=== PATIENT | male | born 1950 | race Caucasian/White ===

== ENCOUNTER → 2017-10-13 08:53 | Outpatient (CLI) | payer MEDICARE, OTHER, SELFPAY ==
[2017-10-13 10:40] LABS: ALB/GLOB Ratio 1.2 RATIO (0.9-2.4); AST(SGOT) 23 U/L (15-37); Alanine Aminotransfer ALT/SGPT 37 U/L (16-61); Alkaline Phosphatase 99 U/L (45-117); Anion Gap 8 (5-15); BUN 14 mg/dL (7-18); BUN/Creat Ratio 12.6 RATIO (10-20); Calcium,Total 8.9 mg/dL (8.5-10.1); Chloride 105 mmol/L (98-107); Cholesterol 181 mg/dL (200); Creatinine, Serum 1.11 mg/dL (0.70-1.30); EST Glomerular Filtration Rate 71 mL/min (>60); Est Glom Filt Rate - Afr Amer 85 mL/min (>60); Globulin 3.4 g/dL (2.2-4.2); Glucose 109 mg/dL (74-106); High Density Lipoprotein 47 mg/dL; PSA,Total- Diagnostic 6.41 ng/mL (0.0-4.0); Potassium 3.9 mmol/L (3.5-5.1); Protein, Total 7.4 g/dL (6.4-8.2); Sodium Level 140 mmol/L (136-145); Triglycerides 175 mg/dL; Very Low Density Lipoprotein 35 mg/dL (5-40)
[2017-10-13 10:47] LABS: Hemoglobin A1c 6.3 % (4.2-6.3)
[2017-10-13 10:57] LABS: Microalbumin:Creatinine Ratio 5.6 mg/g CRE (<30 mg/g CRE)
== END ==
PROVIDERS: Family Provider Family Medicine; PCP Family Medicine; Visit Provider Family Medicine
DX: E88.81 Metabolic syndrome and other insulin resistance (principal); R97.20 Elevated prostate specific antigen [PSA]
CPT/HCPCS: 36415; 80053; 80061; 82043; 82570; 83036; 84153

== ENCOUNTER → 2018-04-29 09:15 | Outpatient (CLI) | payer MEDICARE, OTHER, SELFPAY ==
[2018-04-29 10:47] LABS: Vitamin D,25 Hydroxy 43.5 ng/mL (29.95-100.01)
[2018-04-29 10:51] LABS: ALB/GLOB Ratio 1.2 RATIO (0.9-2.4); AST(SGOT) 32 U/L (15-37); Alanine Aminotransfer ALT/SGPT 45 U/L (16-61); Alkaline Phosphatase 96 U/L (45-117); Anion Gap 9 (5-15); BUN 18 mg/dL (7-18); BUN/Creat Ratio 15.8 RATIO (10-20); Chloride 102 mmol/L (98-107); Cholesterol 188 mg/dL (200); Creatinine, Serum 1.14 mg/dL (0.70-1.30); EST Glomerular Filtration Rate 68 mL/min (>60); Est Glom Filt Rate - Afr Amer 83 mL/min (>60); Globulin 3.4 g/dL (2.2-4.2); Glucose 101 mg/dL (74-106); High Density Lipoprotein 51 mg/dL; PSA,Total- Diagnostic 4.47 ng/mL (0.0-4.0); Protein, Total 7.4 g/dL (6.4-8.2); Sodium Level 139 mmol/L (136-145); Thyroid Stim Hormone (TSH) 0.77 uIU/mL (0.358-3.74); Triglycerides 146 mg/dL; Very Low Density Lipoprotein 29 mg/dL (5-40)
[2018-04-29 10:56] LABS: Microalbumin,Random Urine < 5.0 mg/L (NO RANGE EST.)
== END ==
PROVIDERS: Family Provider Family Medicine; PCP Family Medicine; Referring Provider Family Medicine; Visit Provider Family Medicine
DX: E78.00 Pure hypercholesterolemia, unspecified (principal); E55.9 Vitamin D deficiency, unspecified; L40.9 Psoriasis, unspecified; R97.20 Elevated prostate specific antigen [PSA]; I10 Essential (primary) hypertension
CPT/HCPCS: 36415; 80053; 80061; 82043; 82306; 82570; 84153; 84443

== ENCOUNTER → 2018-09-15 | Outpatient (CLI) | payer MEDICARE, OTHER, SELFPAY ==
[2018-09-15 10:39] LABS: Anion Gap 7 (5-15); BUN 14 mg/dL (7-18); BUN/Creat Ratio 14.2 RATIO (10-20); Calcium,Total 9.3 mg/dL (8.5-10.1); Chloride 105 mmol/L (98-107); Creatinine, Serum 0.99 mg/dL (0.70-1.30); EST Glomerular Filtration Rate 80 mL/min (>60); Est Glom Filt Rate - Afr Amer 97 mL/min (>60); Glucose 111 mg/dL (74-106); Potassium 4.2 mmol/L (3.5-5.1); Sodium Level 139 mmol/L (136-145)
== END | disposition home or self-care (01) ==
LOC: MFPLAB 09:26
PROVIDERS: Family Provider Family Medicine; PCP Family Medicine; Referring Provider Family Medicine; Visit Provider Family Medicine
DX: I10 Essential (primary) hypertension (principal)
CPT/HCPCS: 36415; 80048

== ENCOUNTER → 2019-04-27 09:04 | Outpatient (CLI) | payer MEDICARE, OTHER, SELFPAY ==
[2019-04-27 11:09] LABS: Anion Gap 10 (5-15); BUN 22 mg/dL (7-18); Calcium,Total 9.5 mg/dL (8.5-10.1); Chloride 107 mmol/L (98-107); Cholesterol 192 mg/dL (200); Creatinine, Serum 1.16 mg/dL (0.70-1.30); EST Glomerular Filtration Rate 67 mL/min (>60); Est Glom Filt Rate - Afr Amer 81 mL/min (>60); Glucose 107 mg/dL (74-106); High Density Lipoprotein 51 mg/dL; PSA,Total - Annual Screen 4.66 ng/mL (0.00-4.00); Sodium Level 141 mmol/L (136-145); Triglycerides 133 mg/dL; Very Low Density Lipoprotein 27 mg/dL (5-40)
== END ==
LOC: LAB 09:10 → MTLAB 09:12
PROVIDERS: Family Provider Family Medicine; PCP Family Medicine; Referring Provider Family Medicine; Visit Provider Family Medicine
DX: E78.00 Pure hypercholesterolemia, unspecified (principal); R97.20 Elevated prostate specific antigen [PSA]; I10 Essential (primary) hypertension; Z12.5 Encounter for screening for malignant neoplasm of prostate
CPT/HCPCS: 36415; 80048; 80061; 84153; G0103

== ENCOUNTER 2019-07-10 21:48 | Emergency (ER) | payer MEDICARE, OTHER, SELFPAY ==
[2019-07-10 21:49] VITALS: BP 128/69; PULSE 75; RESP 18; TEMP 36.6; O2SAT 93; BMI 32.2
--- NOTE | 2019-07-10 22:04 | CT_ITS ---
HISTORY: HIT HEAD ON WALL, NO LOC, DAILY BABY ASPIRIN ADDITIONAL HISTORY: None provided. COMPARISON: None TECHNIQUE: Axial, coronal and sagittal CT images were obtained of the brain without intravenous contrast. Number of images including paperwork: 257. A radiation dose optimization technique was used for this scan. FINDINGS: BRAIN: No acute hemorrhage or mass. No definite acute infarct; MRI more sensitive. VENTRICULAR SYSTEM: No hydrocephalus. PARANASAL SINUSES AND MASTOIDS: No air-fluid level in the imaged extent. ORBITS: Unremarkable imaged extent. SKELETON AND SOFT TISSUES: Calvarium intact. Left frontal scalp hematoma. ASPECTS score: Not applicable. CT/Brain/Head without Contrast IMPRESSION: No acute intracranial abnormality. Individualized dose optimization techniques were used for this CT. at 2255 Reported and signed by: Angélica Vila MD Electronically Signed: Angélica Vila MD at 22:55 EST Tel , Service support ,
--- NOTE | 2019-07-10 22:04 | EKG12_ITS ---
Test Reason : FALL Blood Pressure : / mmHG Vent. Rate : 068 BPM Atrial Rate : 068 BPM P-R Int : 146 ms QRS Dur : 088 ms QT Int : 408 ms P-R-T Axes : 048 061 031 degrees QTc Int : 433 ms Normal sinus rhythm Normal ECG Confirmed by LAURA GARCÍA, SANDEEP ([id number]), managing editor MAGDIEL HULL ([id number]) on 07/12/2019 9:17:01 AM Referred By: RU Confirmed By:SANDEEP SANCHEZ MD
--- NOTE | 2019-07-10 22:09 | ED.RN ---
NO OLD EKGS IN MUSE
[2019-07-10] MEDS: 0.9% Normal Saline 1,000 ML 150 ML IV (22:25)
[2019-07-10 22:56] LABS: Absolute Lymphocyte Count 1.96 X10^3/uL (0.83-4.51); Absolute Neutrophil Count 4.4 X10^3/uL (2.0-7.7); Basophil# 0.09 X10^3/uL; Basophil% 1.2 % (0-1); Eosinophil# 0.24 X10^3/uL; Eosinophils% 3.1 % (0-5); Hematocrit 48.6 % (40-54); Hemoglobin 16.5 g/dL (13.0-16.5); Lymphocyte # 1.96 X10^3/ul (4.0); Lymphocyte % 25.7 % (19-41); Mean Corpuscular Hgb 29.2 pg (27.0-32.0); Mean Corpuscular Volume 85.9 fL (80-94); Monocyte# 0.95 X10^3/uL; Monocyte% 12.5 % (0-10); NRBC Flagged by Analyzer 0 % (0-5); Neutrophil # 4.36 X10^3/uL (2.7-7.7); Neutrophil % 57.2 % (47-70); Platelet Count 232 K/mm3 (150-450); RBC Distribution Width CV 12.3 % (11.6-14.6); RBC Distribution Width SD 38.2 fl (35.1-43.9); Red Blood Count 5.66 M/mm3 (4.6-6.2); White Blood Count 7.6 K/mm3 (4.4-11.0)
[2019-07-10 23:14] LABS: Anion Gap 8 (5-15); BUN 14 mg/dL (7-18); BUN/Creat Ratio 9.7 RATIO (10-20); Calcium,Total 9.4 mg/dL (8.5-10.1); Chloride 105 mmol/L (98-107); Creatinine, Serum 1.44 mg/dL (0.70-1.30); EST Glomerular Filtration Rate 52 mL/min (>60); Est Glom Filt Rate - Afr Amer 63 mL/min (>60); Estimated Creatinine Clearance 49.78 ml/min; Glucose 127 mg/dL (74-106); Potassium 3.5 mmol/L (3.5-5.1); Sodium Level 140 mmol/L (136-145)
[2019-07-10 23:30] VITALS: BP 116/70; BP 120/74; BP 122/70; PULSE 78; PULSE 85; PULSE 87
[2019-07-10 23:48] VITALS: BP 122/70; PULSE 78; RESP 18; O2SAT 94
--- NOTE | 2019-07-10 23:54 | ED.VISSUMM ---
- ER Visit Summary Date of Service: 07/10/19 Chief Complaint: [Dizziness and near syncope] History of Present Illness: The patient is a 69 M [presents the emergency department after falling and hitting his head on a metal register. Patient states that he had been sleeping when he got up to get a drink of water. Patient was in a recliner and was somewhat lightheaded and dizzy while in the recliner and when he stood up and started to walk he fell over striking his head. does not believe he lost consciousness as he was responding feeling when he got to him. Patient admits to 1 [facility] this evening. He denies any chest pain or shortness of breath. He denied any palpitations. Patient denies any neck pain. Patient did have a change in his blood pressure medicine recently but he took his blood pressure medications this morning.] Physical Examination: [HEENT-PERRLA, EOMI. Cranial nerves II through XII grossly intact. TMs clear. Mucous membranes moist. No adenopathy. Patient has a superficial abrasion to the frontal scalp. No C-spine pain from palpation. Cardiovascular-regular rate and rhythm without murmur or ectopy Lungs-clear to auscultation, chest wall stable without crepitus or subcu emphysema Abdomen-normoactive bowel sounds, soft, nontender, no rebound or rigidity, no peritoneal signs. Extremities-intact ?4, normal range of motion, normal pulses, atraumatic] Test Results: [EKG obtained on arrival showed a sinus rhythm with a ventricular rate of 60 bpm with no acute ST segment changes. CBC with differential with a 7.6, hemoglobin 16.5, hematocrit 0.9, platelets 233. Chemistries unremarkable. BUN was 14 and creatinine 1.44. Troponin is less than 0.015. CT scan of the brain without contrast showed nothing acute. Orthostatic vital signs were negative.] Alcohol level was less than 5 mg/dL. Emergency Department Course and Treatment: [Patient had an IV line established on arrival. Patient was placed on a conveyor monitor. Patient was given normal saline. Patient ambulated in the department without difficulty and he is completely asymptomatic at this time.] Treatment Plan: [At this point I suspect patient likely had a vasovagal episode. Patient advised to follow-up with primary care physician within the next 3 to 5 days. Patient advised to drink lots of fluids and rest. He is to return if palpitations, tachycardia, chest pain, repeat syncopal episodes, or condition should worsen anyway.] Disposition: [Discharged home in stable condition] Impression: [Vasovagal near syncope] This note was generated with [employer] dictation software. It may contain incorrect words, spelling, and punctuation that were not noted in review of the chart prior to signing ED Disposition - Plan for ED Patient: Referrals: Fabricio Tomas MD [Primary Care Provider] -
--- NOTE | 2019-07-10 23:57 | ED.DEP ---
ED Disposition - Plan for ED Patient: Instructions: NEAR SYNCOPE, Vasovagal Referrals: Fabricio Tomas MD [Primary Care Provider] - 3-5 Days
[2019-07-11 00:18] VITALS: BP 131/67; PULSE 75; RESP 18; TEMP 36.8; O2SAT 96
== END 2019-07-11 00:19 | disposition home or self-care (01) ==
LOC: ED 22:19
PROVIDERS: Emergency Provider Emergency Medicine; PCP Family Medicine
DX: R55 Syncope and collapse (principal); I10 Essential (primary) hypertension; Z79.82 Long term (current) use of aspirin; Z79.899 Other long term (current) drug therapy
CPT/HCPCS: 70450; 80048; 80320; 84484; 85025; 93005; 96360; 96361; 99285; J7030; A4216; G0480

== ENCOUNTER → 2019-08-01 | Outpatient (CLI) | payer MEDICARE, OTHER, SELFPAY ==
[2019-07-10 21:49] VITALS: BMI 32.2
[2019-08-01 12:41] LABS: Anion Gap 5 (5-15); BUN 14 mg/dL (7-18); Calcium,Total 9.6 mg/dL (8.5-10.1); Chloride 103 mmol/L (98-107); Creatinine, Serum 1.17 mg/dL (0.70-1.30); EST Glomerular Filtration Rate 66 mL/min (>60); Est Glom Filt Rate - Afr Amer 80 mL/min (>60); Glucose 108 mg/dL (74-106); Potassium 4.1 mmol/L (3.5-5.1); Sodium Level 136 mmol/L (136-145)
== END | disposition home or self-care (01) ==
LOC: MFPLAB 10:34
PROVIDERS: PCP Family Medicine; Referring Provider Family Medicine; Visit Provider Family Medicine
DX: I10 Essential (primary) hypertension (principal)
CPT/HCPCS: 36415; 80048

== ENCOUNTER → 2020-06-10 08:22 | Outpatient (CLI) | payer MEDICARE, OTHER, SELFPAY ==
[2020-06-10 09:44] LABS: Absolute Lymphocyte Count 2.14 X10^3/uL (0.83-4.51); Absolute Neutrophil Count 3.5 X10^3/uL (2.0-7.7); Basophil# 0.07 X10^3/uL; Basophil% 1.1 % (0-1); Eosinophil# 0.22 X10^3/uL; Eosinophils% 3.4 % (0-5); Hematocrit 48.4 % (40-54); Hemoglobin 16.7 g/dL (13.0-16.5); Lymphocyte # 2.14 X10^3/ul (4.0); Lymphocyte % 32.8 % (19-41); Mean Corp Hgb Conc 34.5 g/dL (32-36); Mean Corpuscular Hgb 29.7 pg (27.0-32.0); Mean Platelet Vol. 9.3 fl (6.2-12.0); Monocyte# 0.56 X10^3/uL; Monocyte% 8.6 % (0-10); NRBC Flagged by Analyzer 0 % (0-5); Neutrophil # 3.53 X10^3/uL (2.7-7.7); Neutrophil % 53.9 % (47-70); Platelet Count 248 K/mm3 (150-450); RBC Distribution Width CV 12.1 % (11.6-14.6); RBC Distribution Width SD 38.1 fl (35.1-43.9); Red Blood Count 5.63 M/mm3 (4.6-6.2); White Blood Count 6.5 K/mm3 (4.4-11.0)
[2020-06-10 10:03] LABS: Microalbumin,Random Urine 11.2 mg/L (NO RANGE EST.); Microalbumin:Creatinine Ratio 6.3 mg/g CRE (<30 mg/g CRE)
[2020-06-10 10:16] LABS: ALB/GLOB Ratio 1.2 RATIO (0.9-2.4); AST(SGOT) 25 U/L (15-37); Alanine Aminotransfer ALT/SGPT 42 U/L (16-61); Albumin, Serum 4.2 g/dL (3.2-5.0); Alkaline Phosphatase 101 U/L (45-117); Anion Gap 7 (5-15); BUN 17 mg/dL (7-18); BUN/Creat Ratio 14.2 RATIO (10-20); Calcium,Total 9.4 mg/dL (8.5-10.1); Chloride 104 mmol/L (98-107); Cholesterol 196 mg/dL (200); EST Glomerular Filtration Rate 64 mL/min (>60); Est Glom Filt Rate - Afr Amer 77 mL/min (>60); Globulin 3.4 g/dL (2.2-4.2); Glucose 119 mg/dL (74-106); High Density Lipoprotein 54 mg/dL; PSA,Total- Diagnostic 5.08 ng/mL (0.0-4.0); Potassium 4.1 mmol/L (3.5-5.1); Protein, Total 7.6 g/dL (6.4-8.2); Sodium Level 138 mmol/L (136-145); Triglycerides 141 mg/dL; Very Low Density Lipoprotein 28 mg/dL (5-40)
== END ==
PROVIDERS: PCP Family Medicine; Visit Provider Family Medicine
DX: E78.00 Pure hypercholesterolemia, unspecified (principal); I10 Essential (primary) hypertension; R97.20 Elevated prostate specific antigen [PSA]
CPT/HCPCS: 36415; 80053; 80061; 82043; 82570; 84153; 85025

== ENCOUNTER 2021-08-06 08:45 | Outpatient (CLI) | payer MEDICARE, OTHER, SELFPAY ==
[2021-08-06 10:17] LABS: Hematocrit 46.8 % (40-54); Hemoglobin 16.2 g/dL (13.0-16.5); Mean Corp Hgb Conc 34.6 g/dL (32-36); Mean Corpuscular Hgb 29.8 pg (27.0-32.0); Mean Platelet Vol. 9.3 fl (6.2-12.0); Platelet Count 227 K/mm3 (150-450); RBC Distribution Width CV 12.5 % (11.6-14.6); RBC Distribution Width SD 39.3 fl (35.1-43.9); Red Blood Count 5.44 M/mm3 (4.6-6.2)
[2021-08-06 10:40] LABS: ALB/GLOB Ratio 1.2 RATIO (0.9-2.4); AST(SGOT) 25 U/L (15-37); Alanine Aminotransfer ALT/SGPT 35 U/L (16-61); Albumin, Serum 3.9 g/dL (3.2-5.0); Alkaline Phosphatase 83 U/L (45-117); Anion Gap 6 (5-15); BUN 15 mg/dL (7-18); BUN/Creat Ratio 12.5 RATIO (10-20); Calcium,Total 9.4 mg/dL (8.5-10.1); Chloride 106 mmol/L (98-107); Cholesterol 192 mg/dL (200); EST Glomerular Filtration Rate 64 mL/min (>60); Est Glom Filt Rate - Afr Amer 77 mL/min (>60); Globulin 3.3 g/dL (2.2-4.2); Glucose 113 mg/dL (74-106); High Density Lipoprotein 51 mg/dL; Potassium 4.3 mmol/L (3.5-5.1); Protein, Total 7.2 g/dL (6.4-8.2); Sodium Level 140 mmol/L (136-145); Triglycerides 190 mg/dL; Very Low Density Lipoprotein 38 mg/dL (5-40)
== END 2021-08-06 23:59 | disposition home or self-care (01) ==
LOC: MTLAB 08:46
PROVIDERS: PCP Family Medicine; Referring Provider Nurse Practitioner Family; Visit Provider Nurse Practitioner Family
DX: I10 Essential (primary) hypertension (principal); E78.00 Pure hypercholesterolemia, unspecified; R97.20 Elevated prostate specific antigen [PSA]; Z12.5 Encounter for screening for malignant neoplasm of prostate
CPT/HCPCS: 36415; 80053; 80061; 84153; 85027; G0103

== ENCOUNTER 2021-09-16 10:37 | Inpatient (IN) | payer MEDICARE, OTHER, SELFPAY ==
[2021-09-16] VITALS (39 sets, daily range): BP systolic 95–157; BP diastolic 56–110; PULSE 53–158; RESP 14–25; TEMP 36.4–36.7; O2SAT 94–99; BMI 29.0; BMI 28.8
--- NOTE | 2021-09-16 10:50 | EKG12_ITS ---
Test Reason : PALPITATIONS Blood Pressure : / mmHG Vent. Rate : 152 BPM Atrial Rate : 304 BPM P-R Int : 000 ms QRS Dur : 090 ms QT Int : 336 ms P-R-T Axes : 000 064 032 degrees QTc Int : 534 ms Atrial flutter Nonspecific ST and T wave abnormality Abnormal ECG Confirmed by LAURA GARCÍA, SANDEEP ([id number]), greeting card editor MAGDIEL HULL ([id number]) on 09/18/2021 7:22:08 AM Referred By: PL/AR Confirmed By:SANDEEP SANCHEZ MD
--- NOTE | 2021-09-16 10:51 | EDS_ITS ---
HPI History of Present Illness Chief Complaint: Palpitations Informant: patient Narrative Narrative: Patient presents with some palpitations. He states he has had palpitations all morning. He states he does not feel bad at all. He has no chest pain pressure dyspnea nausea or lightheadedness. He might have had this a little bit yesterday but is not 100% certain. I reviewed his medications. The only variation is that he is no longer on hydrochlorothiazide. He did take his medicines including the cartia and aspirin today. He has no history of atrial flutter or fibrillation. Nothing really makes symptoms better or worse. But he has not really tried anything yet. He has not been on any cold medicines antihistamines. He has not been ill recently. [facility] Medical History (Updated 09/16/21 @ 14:[address] Ortiz Alex MD) BPH (benign prostatic hyperplasia) HLD (hyperlipidemia) HTN (hypertension) Home Medications aspirin 81 mg PO DAILY@0800 12/03/14 [History Last Taken 09/16/21] biotin 10,000 mcg PO DAILY 12/03/14 [History Last Taken 09/16/21] cyanocobalamin (vitamin B-12) 1,000 mcg SUBLINGUAL DAILY 12/03/14 [History Last Taken 09/16/21] multivitamin with folic acid [Thera] 1 tab PO DAILY 12/03/14 [History Last Taken 09/16/21] diltiazem HCl [Cartia XT] 120 mg PO DAILY 09/16/21 [History Last Taken 09/16/21] ezetimibe 10 mg PO DAILY 09/16/21 [History Last Taken 09/16/21] lisinopril 20 mg PO DAILY 09/16/21 [History Last Taken 09/16/21] tamsulosin 0.4 mg PO QHS 09/16/21 [History Last Taken 09/15/21] Allergy/AdvReac Type Severity Reaction Status Date / Time No Known Allergies Allergy Verified 09/16/21 10:39 Family History (Updated 09/16/21 @ 14:[address] Stephanie Broderick MD) Mother Heart disease Myocardial infarction Father Cancer Metastatic cancer, unclear specific primary but family notes bone involvement. Surgical History (Updated 09/16/21 @ 14:[address] Stephanie Broderick MD) No history of previous surgery Social History (Updated 09/16/21 @ 14:[address] Stephanie Broderick MD) household members: spouse Smoking Status: Never smoker alcohol intake: current alcohol intake frequency: a few times a month substance use type: does not use caffeine: Yes (Notes daily 2 cup black tea daily and 2 cup coffee daily.) ROS ROS ED Constitutional Constitutional ED: Denies chills or fever(s) Eyes Eyes: Denies blurry vision ENT ENT ED: Denies rhinorrhea or sore throat Cardiovascular Cardiovascular: Reports palpitations; Denies chest pain or racing heartbeat Respiratory/Chest Respiratory/Chest: Denies cough or dyspnea Gastrointestinal Gastrointestinal: Denies nausea or vomiting Genitourinary Genitourinary ED: Denies urinary frequency Musculoskeletal Musculoskeletal: Denies back pain or neck pain Integumentary Denies rash Neurologic Neurologic: Denies headache(s), paresthesias or weakness Psychiatric Psychiatric: Denies anxiety or depression Endocrine Endocrinology: Denies polydipsia or polyuria Allergic/Immunologic Allergic/Immunologic ED: Denies urticaria EXAM Physical Exam Const Vital Signs: 09/16/21 10:38 09/16/21 10:45 09/16/21 10:56 Temperature 97.5 F L Temperature Source Temporal Pulse Rate 152 H 153 H Respiratory Rate 18 19 H Respiratory Effort Normal Non-Labored Respiratory Pattern Normal Blood Pressure 146/94 H 157/110 H Blood Pressure Mean 111 125 Blood Pressure Source Blood Pressure Position Blood Pressure Location Pulse Ox 99 95 Oxygen Delivery Method Room Air Room Air Room Air 09/16/21 11:00 09/16/21 11:06 09/16/21 11:15 Temperature Temperature Source Pulse Rate 151 H 149 H 101 H Respiratory Rate 22 H 17 Respiratory Effort Respiratory Pattern Blood Pressure 128/103 H 142/93 H 119/79 Blood Pressure Mean 111 109 92 Blood Pressure Source Blood Pressure Position Blood Pressure Location Pulse Ox 94 95 Oxygen Delivery Method Room Air Room Air 09/16/21 12:07 09/16/21 12:45 09/16/21 13:22 Temperature Temperature Source Pulse Rate 151 H 150 H 137 H Respiratory Rate 19 H 17 18 Respiratory Effort Respiratory Pattern Blood Pressure 121/86 H 149/101 H 142/85 H Blood Pressure Mean 97 117 104 Blood Pressure Source Monitor Monitor Blood Pressure Position Semi-Fowlers Semi-Fowlers Blood Pressure Location Left Arm Left Arm Pulse Ox 95 96 94 Oxygen Delivery Method Room Air Room Air 09/16/21 13:39 Temperature 97.6 F L Temperature Source Temporal Pulse Rate 145 H Respiratory Rate 20 H Respiratory Effort Respiratory Pattern Blood Pressure 152/104 H Blood Pressure Mean 120 Blood Pressure Source Blood Pressure Position Blood Pressure Location Pulse Ox 95 Oxygen Delivery Method Positive well nourished and well developed General Appearance ED: well developed and NAD; Negative for cyanotic or diaphoretic HEENT Reports moist mucous membranes Eyes General Eye ED: Negative for pale conjunctiva or scleral icterus Neck no JVD Chest Wall inspection of chest normal Resp normal respiratory effort and clear to auscultation bilaterally Effort and Inspection: Negative for pain with movement Auscultation: Negative for rales, rhonchi or wheezes Cardio regular rhythm; Negative for regular rate Rate: tachycardic and other Other Details: Rate is about 152 on the monitor and appears to be quite regular. Consistent with atrial flutter. GI normal to inspection, nondistended, normoactive bowel sounds and non-tender Palpation: soft Back/Spine no CVA tenderness Extremity normal to inspection General Extremety ED: Negative for edema or tenderness General Extremity: Negative for edema Neuro Sensorium / Orientation: alert Psych mental status grossly normal Skin no rashes or lesions noted MDM MDM MDM Narrative Medical decision making narrative: Patient's blood work showed mildly high hemoglobin but otherwise CBC is normal. Glucose was slightly high at 160. Troponin and TSH were negative/normal. . I initially gave the patient 20 of diltiazem. His heart rate slowed down to the 80s and A. fib flutter pattern. However it was starting to go back up. I then started him on a diltiazem drip. It had dropped down to the 120s. I called and talked to the hospitalist. But then his heart rate was going back up to 150s. We are bumping the drip up at this time. I expect that it should come down as he is already had good response. Lab Data Attestation: I reviewed the patient's lab results. Labs: Laboratory Results - last 24 hr 09/16/21 09/16/21 09/16/21 11:00 11:00 11:00 WBC 6.2 RBC 5.77 Hgb 17.6 H Hct 49.7 MCV 86.1 MCH 30.5 MCHC 35.4 RDW Std Deviation 38.3 RDW Coeff of Derek 12.2 Plt Count 257 MPV 9.1 Immature Gran % (Auto) 0.300 Neut % (Auto) 53.1 Lymph % (Auto) 30.7 [place] % (Auto) 11.5 H Eos % (Auto) 3.1 Baso % (Auto) 1.3 H Absolute Neuts (auto) 3.3 Absolute Lymphs (auto) 1.89 Nucleated RBC % 0 Sodium 136 Potassium 4.3 Chloride 106 Carbon Dioxide 26.0 Anion Gap 4 L BUN 13 Creatinine 1.18 Estim Creat Clear Calc 61.01 Est GFR (MDRD) Af Amer 79 Est GFR (MDRD) Non-Af 65 BUN/Creatinine Ratio 11.0 Glucose 162 H Calcium 9.5 Magnesium Troponin I High Sens 6 TSH 0.79 09/16/21 09/16/21 13:35 13:35 WBC RBC Hgb Hct MCV MCH MCHC RDW Std Deviation RDW Coeff of Derek Plt Count MPV Immature Gran % (Auto) Neut % (Auto) Lymph % (Auto) [place] % (Auto) Eos % (Auto) Baso % (Auto) Absolute Neuts (auto) Absolute Lymphs (auto) Nucleated RBC % Sodium Potassium Chloride Carbon Dioxide Anion Gap BUN Creatinine Estim Creat Clear Calc Est GFR (MDRD) Af Amer Est GFR (MDRD) Non-Af BUN/Creatinine Ratio Glucose Calcium Magnesium 2.3 Troponin I High Sens 6 TSH Radiography Diagnostic Testing: Clinical Impression(s) from Imaging Studies Chest X-Ray 09/16/21 11:00 IMPRESSION: Normal x-ray examination of the chest. Electronically Signed: Willi Vega MD at 11:35 EDT Reading Location ID and State: [facility] / [place] , Service support , EKG Initial EKG: Comments: EKG done for tachycardia read by me shows tachycardic rate at 152 very irregular most consistent with atrial flutter and 2-1 block. No ventricular ectopy. Mild nonspecific ST and T wave changes but no sign of acute infarct. QRS duration is normal. QTc appears to be long at 534. Discharge Plan Triage Chief Complaint: Palpitations ED Provider: Ortiz Alex Dx/Rx/DC Orders Clinical Impression: Atrial flutter with rapid ventricular response Primary Care Provider: Tomas,Fabricio Disposition Disposition: Acute Care Hospital
--- NOTE | 2021-09-16 11:00 | RAD_ITS ---
STUDY: X-RAY CHEST REASON FOR EXAM: Male, 71 years old. Atypical chest pain TECHNIQUE: Single AP portable view of the chest. COMPARISON: None. FINDINGS: EKG leads overlie the chest The lungs are clear and expanded. There is no demonstrated pleural abnormality. Normal size heart. Normal mediastinum and josé miguel. Normal visualized pulmonary arteries. Normal visualized aortic arch and descending thoracic aorta. Normal visualized thoracic spine. Normal visualized ribs, clavicles, and shoulders. There is no demonstrated abnormality of the visualized soft tissue structures of the upper abdomen. RAD/Chest 1 View (Portable) IMPRESSION: Normal x-ray examination of the chest. Electronically Signed: Willi Vega MD at 11:35 EDT ,
[2021-09-16] MEDS: dilTIAZem 25 MG/5 ML Vial 20 MG IV BOLUS (11:04)
[2021-09-16] MEDS: 0.9% Normal Saline 1,000 ML 1000 ML IV (11:04)
[2021-09-16 11:09] LABS: Absolute Lymphocyte Count 1.89 X10^3/uL (0.83-4.51); Absolute Neutrophil Count 3.3 X10^3/uL (2.0-7.7); Basophil# 0.08 X10^3/uL; Basophil% 1.3 % (0-1); Eosinophil# 0.19 X10^3/uL; Eosinophils% 3.1 % (0-5); Hematocrit 49.7 % (40-54); Hemoglobin 17.6 g/dL (13.0-16.5); Lymphocyte # 1.89 X10^3/ul (0.83-4.51); Lymphocyte % 30.7 % (19-41); Mean Corp Hgb Conc 35.4 g/dL (32-36); Mean Corpuscular Hgb 30.5 pg (27.0-32.0); Mean Corpuscular Volume 86.1 fL (80-94); Mean Platelet Vol. 9.1 fl (6.2-12.0); Monocyte# 0.71 X10^3/uL; Monocyte% 11.5 % (0-10); NRBC Flagged by Analyzer 0 % (0-5); Neutrophil # 3.26 X10^3/uL (2.7-7.7); Neutrophil % 53.1 % (47-70); Platelet Count 257 K/mm3 (150-450); RBC Distribution Width CV 12.2 % (11.6-14.6); RBC Distribution Width SD 38.3 fl (35.1-43.9); Red Blood Count 5.77 M/mm3 (4.6-6.2); White Blood Count 6.2 K/mm3 (4.4-11.0)
[2021-09-16 11:33] LABS: Anion Gap 4 (5-15); BUN 13 mg/dL (7-18); Calcium,Total 9.5 mg/dL (8.5-10.1); Chloride 106 mmol/L (98-107); Creatinine, Serum 1.18 mg/dL (0.70-1.30); EST Glomerular Filtration Rate 65 mL/min (>60); Est Glom Filt Rate - Afr Amer 79 mL/min (>60); Estimated Creatinine Clearance 61.01 ml/min; Glucose 162 mg/dL (74-106); Potassium 4.3 mmol/L (3.5-5.1); Sodium Level 136 mmol/L (136-145); Thyroid Stim Hormone (TSH) 0.79 uIU/mL (0.358-3.74)
--- NOTE | 2021-09-16 12:47 | ED.RN ---
Called lab regarding pending troponin from 1100. Stated they will look into it and call ED back.
[2021-09-16 13:02] LABS: Troponin-I HS (w/2H Reflex) 6 pg/mL (3.0-78.0)
[2021-09-16 13:05] LABS: Reflex Troponin-HS? (from REC) Y
--- NOTE | 2021-09-16 13:20 | PCM.HP.STD ---
HPI - General General Date of Admission: 09/16/21 Date of Service: 09/16/21 Chief Complaint: Palpitations HPI Narrative The patient is a 71 y/o M w/ PMHx: HTN, HLD, BPH, Overweight who presents to the [facility] ED on 09/16/21 with history of noting to have slept poorly with onset in the AM sensation of palpitations although reports certainly could have been earlier, noted sensation of feeling different, no specific pain or dyspnea, but given this atypical sensation prompted ED presentation. His has history of PAF and follows w/ Dr. Lao they note. He denies any recent illness. He has no history of JACKIE. He notes no recent prolonged travel, leg swelling or pain. He admits to at least 2 cups black tea and 2 cups coffee daily. Work-up in the ED included T 97.5, HR 152, BP 146/94, RR 18, 99% on RA, CBC w/ WBC 6.2, globin 17.6, platelet 257 without marked shift, BMP unremarkable aside glucose 162, troponin initial 6, EKG with atrial flutter w/ RVR. In the ED patient administered Diltiazem 20 mg IV x 1-->rate down to 80s; however, again robert to 150s, started on drip per ED physician. [facility] Medical History (Updated 09/16/21 @ 14:[address] Stephanie Broderick MD) BPH (benign prostatic hyperplasia) HLD (hyperlipidemia) HTN (hypertension) Home Medications aspirin 81 mg PO DAILY@0800 12/03/14 [History Last Taken 09/16/21] biotin 10,000 mcg PO DAILY 12/03/14 [History Last Taken 09/16/21] cyanocobalamin (vitamin B-12) 1,000 mcg SUBLINGUAL DAILY 12/03/14 [History Last Taken 09/16/21] multivitamin with folic acid [Thera] 1 tab PO DAILY 12/03/14 [History Last Taken 09/16/21] diltiazem HCl [Cartia XT] 120 mg PO DAILY 09/16/21 [History Last Taken 09/16/21] ezetimibe 10 mg PO DAILY 09/16/21 [History Last Taken 09/16/21] lisinopril 20 mg PO DAILY 09/16/21 [History Last Taken 09/16/21] tamsulosin 0.4 mg PO QHS 09/16/21 [History Last Taken 09/15/21] Allergy/AdvReac Type Severity Reaction Status Date / Time No Known Allergies Allergy Verified 09/16/21 10:39 Family History (Updated 09/16/21 @ 14:[address] Stephanie Broderick MD) Mother Heart disease Myocardial infarction Father Cancer Metastatic cancer, unclear specific primary but family notes bone involvement. Surgical History (Updated 09/16/21 @ 14:[address] Stephanie Broderick MD) No history of previous surgery Social History (Updated 09/16/21 @ 14:[address] Stephanie Broderick MD) household members: spouse Smoking Status: Never smoker alcohol intake: current alcohol intake frequency: a few times a month substance use type: does not use caffeine: Yes (Notes daily 2 cup black tea daily and 2 cup coffee daily.) ROS ROS Narrative Admission Review of Systems: CONSTITUTIONAL: No weight loss, fever, chills, weakness or fatigue. HEENT: Eyes: No visual loss, blurred vision, double vision or yellow sclerae. Ears, Nose, Throat: No hearing loss, sneezing, congestion, runny nose or sore throat. SKIN: No rash or itching, lesions, wounds. CARDIOVASCULAR: Palpitations, No chest pain, chest pressure or chest discomfort, edema, orthopnea, syncopal events. RESPIRATORY: No shortness of breath, cough or sputum, wheezing, hemoptysis. GASTROINTESTINAL: No anorexia, nausea, vomiting or diarrhea, abdominal pain, melena, BRBPR. GENITOURINARY: No dysuria, frequency, urgency or retention. NEUROLOGICAL: No headache, dizziness, syncope, paralysis, ataxia, numbness or tingling in the extremities, focal weakness, change in bowel or bladder control, seizure. MUSCULOSKELETAL: No muscle, back pain, joint pain or stiffness. HEMATOLOGIC: No anemia, bleeding or bruising. LYMPHATICS: No enlarged nodes. No history of splenectomy. PSYCHIATRIC: No history of depression or anxiety. ENDOCRINOLOGIC: No reports of sweating, cold or heat intolerance. No polyuria or polydipsia. ALLERGIES: No history of asthma, hives, eczema or rhinitis. Vital Signs Vital Signs Vital Signs: 09/16/21 10:38 09/16/21 10:45 09/16/21 10:56 Temperature 97.5 F L Temperature Source Temporal Pulse Rate 152 H 153 H Respiratory Rate 18 19 H Respiratory Effort Normal Non-Labored Respiratory Pattern Normal Blood Pressure 146/94 H 157/110 H Blood Pressure Mean 111 125 Blood Pressure Source Blood Pressure Position Blood Pressure Location Pulse Ox 99 95 Oxygen Delivery Method Room Air Room Air Room Air 09/16/21 11:00 09/16/21 11:06 09/16/21 11:15 Temperature Temperature Source Pulse Rate 151 H 149 H 101 H Respiratory Rate 22 H 17 Respiratory Effort Respiratory Pattern Blood Pressure 128/103 H 142/93 H 119/79 Blood Pressure Mean 111 109 92 Blood Pressure Source Blood Pressure Position Blood Pressure Location Pulse Ox 94 95 Oxygen Delivery Method Room Air Room Air 09/16/21 12:07 09/16/21 12:45 Temperature Temperature Source Pulse Rate 151 H 150 H Respiratory Rate 19 H 17 Respiratory Effort Respiratory Pattern Blood Pressure 121/86 H 149/101 H Blood Pressure Mean 97 117 Blood Pressure Source Monitor Blood Pressure Position Semi-Fowlers Blood Pressure Location Left Arm Pulse Ox 95 96 Oxygen Delivery Method Room Air Weight Weight: 202 lb Body Mass Index (BMI) 29.0 Physical Exam Narrative Physical Examination: General: Awake, alert, oriented x 3 and cooperative, seated upright in the ED bed in no apparent distress. Skin: Normal color, normal turgor, no icterus, no cyanosis. HEENT: AT/NC, EOMI, PERRLA, MMM, no carotid bruits or JVD noted. Lungs: Diminished, > bases, appropriate effort, no rales, ronchi or wheezing. Heart: Irregular irregular; no gallop, rub audible. Abdomen: Soft,overweight, NTTP, ND, normal BS, no HSM. Extremities: No cyanosis, clubbing, or edema. Neurological: Patient awake, alert, oriented as noted, cognitive function intact; pupils equally reactive to light and accommodation, cranial nerves II-XII grossly normal, moving all 4 extremities, no focal deficits, strength preserved. Psychiatric: Affect appears mildly fatigued otherwise normal, no acute evidence of depressive or anxiety feelings. Results Lab / Micro Data Result Diagrams: 09/16/21 11:00 09/16/21 11:00 Labs: Laboratory Results - last 24 hr 09/16/21 11:00: WBC 6.2, RBC 5.77, Hgb 17.6 H, Hct 49.7, MCV 86.1, MCH 30.5, MCHC 35.4, RDW Std Deviation 38.3, RDW Coeff of Derek 12.2, Plt Count 257, MPV 9.1, Immature Gran % (Auto) 0.300, Neut % (Auto) 53.1, Lymph % (Auto) 30.7, [place] % (Auto) 11.5 H, Eos % (Auto) 3.1, Baso % (Auto) 1.3 H, Absolute Neuts (auto) 3.3, Absolute Lymphs (auto) 1.89, Nucleated RBC % 0 09/16/21 11:00: Sodium 136, Potassium 4.3, Chloride 106, Carbon Dioxide 26.0, Anion Gap 4 L, BUN 13, Creatinine 1.18, Estim Creat Clear Calc 61.01, Est GFR (MDRD) Af Amer 79, Est GFR (MDRD) Non-Af 65, BUN/Creatinine Ratio 11.0, Glucose 162 H, Calcium 9.5, TSH 0.79 09/16/21 11:00: Troponin I High Sens 6 Radiology Impression Chest X-Ray 09/16/21 11:00 IMPRESSION: Normal x-ray examination of the chest. Electronically Signed: Willi Vega MD at 11:35 EDT Reading Location ID and State: [facility] / [place] , Service support , Assessment & Plan Assessment/Plan (1) Atrial flutter with rapid ventricular response: PLAN: The patient is a 71 y/o M w/ PMHx: HTN, HLD, BPH, Overweight who presents to the [facility] ED on 09/16/21 with history of noting to have slept poorly with onset in the AM sensation of palpitations although reports certainly could have been earlier, noted sensation of feeling different, no specific pain or dyspnea, but given this atypical sensation prompted ED presentation. #1. New onset, Paroxsymal atrial fibrillation/flutter: EKG in ED w/ atrial flutter w/ RVR. Patient administered bolus and eventually placed on cardizem drip in ED. Will admit to PCU, maintain on telemetry, obtain cardiac enzyme serial set, obtain magnesium level, obtain ECHO, obtain TSH level. Will place on therapeutic lovenox. Will continue on cardizem drip. Per discussion with patient/family requested Cardiology consult. Suspect may need to add additional regimen given currently already near maxed. #2. Hyperglycemia: Admission glucose 162, will obtain A1c to be cautious. #3. Hypertension: Continue home regimen including IV Cardizem drip, lisinopril with hold parameters as needed, PRN hydralazine. #4. Hyperlipidemia: We will continue patient home estimate be regimen, FLP in a.m. #5. BPH: We will continue patient on Flomax regimen. #6. DVT prophylaxis: SCDs, continue therapeutic Lovenox. Charges/Coding Visit Charges Inpatient E&M: 03098 Init Hosp L2
--- NOTE | 2021-09-16 13:33 | NURSING ---
PCU WHITE AFIB RVR
[2021-09-16] MEDS: Enoxaparin 100 MG/ML Syringe 90 MG SC (13:57)
[2021-09-16 14:00] LABS: Troponin-I HS 6 pg/mL (3.0-78.0)
[2021-09-16 14:16] LABS: Magnesium 2.3 mg/dL (1.6-2.6)
--- NOTE | 2021-09-16 14:22 | ECHOD_ITS ---
Reason For Study: PAF Procedure This was a 2D Doppler, Color Flow transthoracic echocardiogram. The study was technically difficult. Exam performed portable in patient room. Left Ventricle Based upon the 2D echocardiographic images obtained there appears to be grossly normal left ventricular size, wall motion, and systolic function. The estimated ejection fraction is 65 %. Unable to assess diastolic dysfunction. Right Ventricle Normal RV size. Normal systolic function. Atria Normal left atrium. Normal right atrium. No doppler evidence for ASD. Mitral Valve There is no mitral annular calcification. Normal mitral valve. Trivial mitral valve insufficiency. Tricuspid Valve Normal tricuspid valve. Trivial tricuspid valve insufficiency. Unable to estimate RV systolic pressure/pulmonary artery pressure due to technically difficult study. Aortic Valve Trisinus/trileaflet aortic valve. Normal aortic valve. Trivial aortic valve insufficiency. Pulmonic Valve The pulmonic valve is not well visualized. Trivial pulmonic valve insufficiency. Great Vessels Borderline enlarged aortic root. Pericardium/Pleural No pericardial effusion. Doppler Measurements & Calculations MV E max darlene: 79.9 cm/sec Ao V2 max: 117.9 cm/sec LV V1 max: 123.9 cm/sec Ao max P.9 mmHg LV V1 max P.5 mmHg PA V2 max: 70.9 cm/sec ECHO/Echo Complete Interpretation Summary The study was technically difficult. Based upon the 2D echocardiographic images obtained there appears to be grossly normal left ventricular size, wall motion, and systolic function. The estimated ejection fraction is 65 %. Trivial mitral valve insufficiency. Trivial tricuspid valve insufficiency. Trivial aortic valve insufficiency. Trivial pulmonic valve insufficiency. Borderline enlarged aortic root. Unable to estimate RV systolic pressure/pulmonary artery pressure due to techni susan difficult study. Unable to assess diastolic dysfunction. Ordering Physician: Stephanie Broderick Referring Physician: Fabricio Tomas MD Performed By: ANJEL
--- NOTE | 2021-09-16 16:33 | CON.PCM.CA_ITS ---
Assessment & Plan Assessment/Plan (1) Atrial flutter with rapid ventricular response: PLAN: The patient has atrial flutter with rapid ventricular response. The etiology is unclear although this could be related to combination of age and hypertension. He will continue evaluation for other obvious etiologies as deemed appropriate. He has been placed on rate control therapy. However he remains with a rapid response. Thus, he may need additional attempts at regaining control and sinus rhythm such as potentially an agent as IV amiodarone. Also depending upon his clinical course and findings he may need an attempt at regaining sinus rhythm with synchronized biphasic DC cardioversion. This may need to be preceded by KARINA to exclude left atrial appendage thrombus. He will also continue anticoagulant therapy. (2) HLD (hyperlipidemia): PLAN: He will continue medical therapy as deemed appropriate (3) HTN (hypertension): PLAN: His blood pressure will need to be followed and he will be treated medically as deemed appropriate. Addt'l Comments The patient's case has been discussed and reviewed with the patient, his spouse, and Dr. Broderick of the [facility] staff. This note was generated using a voice recognition system and there may be incorrect words, spelling or punctuation that were not noted when reviewing the office note prior to saving. HPI Consult Data Date of Consult: 09/16/21 HPI Narrative HPI Narrative: CHELY HENDERSON, is a 71 year old white male who presents for cardiovascular consultation based upon concerns of ongoing atrial flutter with rapid ventricular response. The patient denies any previous cardiovascular history. He states that he had been feeling well until earlier this day. He states he knew he just did not feel well today. He sensed the heart rate being elevated. He does not recall having any associated chest discomfort or difficulty breathing nor does he recall having ongoing nausea or emesis or diaphoresis. There has been no report of loss of consciousness/syncope. He presented to the emergency department for further evaluation. He was noted in what appeared to be an underlying atrial flutter with rapid ventricular response. He was treated with IV diltiazem and subsequently transferred to the PCU for further evaluation and care. His initial troponin I level has been negative. His ECG did demonstrate atrial flutter. His chest x-ray is as noted below. He has not required previous cardiovascular diagnostic studies to be performed to the best of his knowledge other than ECGs. Is undergone further evaluation with a transthoracic echocardiogram. The results are noted below. He has denied any orthopnea or PND or ongoing peripheral pitting edema. He states he has been treated for hypertension. He believes his blood pressure has been under reasonably good control. He also has been treated for hyperlipidemia. He has been on medical therapy with Zetia. [facility] Medical History (Updated 09/16/21 @ 16:[address] Abdi Hutson MD) BPH (benign prostatic hyperplasia) HLD (hyperlipidemia) HTN (hypertension) Home Medications aspirin 81 mg PO DAILY@0800 12/03/14 [History Last Taken 09/16/21] biotin 10,000 mcg PO DAILY 12/03/14 [History Last Taken 09/16/21] cyanocobalamin (vitamin B-12) 1,000 mcg SUBLINGUAL DAILY 12/03/14 [History Last Taken 09/16/21] multivitamin with folic acid [Thera] 1 tab PO DAILY 12/03/14 [History Last Taken 09/16/21] diltiazem HCl [Cartia XT] 120 mg PO DAILY 09/16/21 [History Last Taken 09/16/21] ezetimibe 10 mg PO DAILY 09/16/21 [History Last Taken 09/16/21] lisinopril 20 mg PO DAILY 09/16/21 [History Last Taken 09/16/21] tamsulosin 0.4 mg PO QHS 09/16/21 [History Last Taken 09/15/21] Allergy/AdvReac Type Severity Reaction Status Date / Time No Known Allergies Allergy Verified 09/16/21 10:39 Family History (Updated 09/16/21 @ 14:[address] Stephanie Broderick MD) Mother Heart disease Myocardial infarction Father Cancer Metastatic cancer, unclear specific primary but family notes bone involvement. Surgical History No history of previous surgery Social History (Updated 09/16/21 @ 14:[address] Stephanie Broderick MD) household members: spouse Smoking Status: Never smoker alcohol intake: current alcohol intake frequency: a few times a month substance use type: does not use caffeine: Yes (Notes daily 2 cup black tea daily and 2 cup coffee daily.) ROS Constitutional Constitutional: Reports as per HPI Eyes Eyes: Reports as per HPI ENT HEENT: Reports as per HPI Cardiovascular Cardiovascular: Reports palpitations Respiratory/Chest Respiratory/Chest: Reports as per HPI Gastrointestinal Gastrointestinal: Reports as per HPI Genitourinary Genitourinary: Reports as per HPI Musculoskeletal Musculoskeletal: Reports as per HPI Integumentary Integumentary: Reports as per HPI Neurologic Neurologic: Reports as per HPI Psychiatric Psychiatric: Reports as per HPI Physical Exam Const alert, oriented x3, no apparent distress and healthy appearing Orientation / Consciousness: awake HEENT normocephalic, head/scalp atraumatic and hearing grossly normal bilaterally Eyes PERRL, EOMs intact bilaterally and conjunctivae normal Neck full ROM, supple and no JVD Resp clear to auscultation bilaterally Cardio Rhythm: abnormal rhythm irregularly irregular Heart Sounds: S1 normal and S2 normal GI normal to inspection, nondistended, normoactive bowel sounds Extremity no pedal edema Skin no rashes or lesions noted Neuro oriented x3, moves all extremities, no focal motor deficits and no sensory deficits noted Psych mental status grossly normal Risk Stratification Risk Stratification Applicable: Yes Age >/= 65: Yes >/= 3 CAD Risk Factors (HTN, HLD, DM, family hx of CAD, or current smoker): Yes Aspirin Use in the Past 7 Days: No Severe Angina (>/= episodes in 24 hours): No EKG ST Changes >/= 0.5mm: No Positive Cardiac Marker: No GISSELLE Risk Stratification Score: 2 GISSELLE % Risk: 8% Risk Procedure Criteria Type of Procedure Procedure Type: Elective Elective Risks - COVID COVID Risk Discussion: The surgeon/proceduralist and patient have discussed in detail the risk of exposure to and/or potential harm posed by the COVID-19 virus with having a surgery/procedure at this time versus the risk of delaying the surgery/procedure. It is not possible to know either the risk of delaying the surgery or procedure or chance of getting an infection with perfect accuracy, but a joint decision was made between the patient and the surgeon/proceduralist to proceed at this time with the scheduled surgery/procedure as indicated on the consent form. Objective Data Vital Signs: Vital Signs Temp Pulse Resp BP Pulse Ox 97.5 F L 105 H 15 122/81 H 94 09/16/21 14:30 09/16/21 15:45 09/16/21 15:45 09/16/21 15:45 09/16/21 15:45 Oxygen Delivery Method Room Air Weight: 200 lb 13.458 oz Body Mass Index (BMI) 28.8 Intake & Output: Intake and Output for Last 24 Hours 09/14/21 09/15/21 09/16/21 23:59 23:59 23:59 Intake Total 1045.09 / 1045.09 Balance 1045.09 / 1045.09 Lab / Micro Data Result Diagrams: 09/16/21 11:00 09/16/21 11:00 Labs: Laboratory Results - last 24 hr 09/16/21 11:00: WBC 6.2, RBC 5.77, Hgb 17.6 H, Hct 49.7, MCV 86.1, MCH 30.5, MCHC 35.4, RDW Std Deviation 38.3, RDW Coeff of Derek 12.2, Plt Count 257, MPV 9.1, Immature Gran % (Auto) 0.300, Neut % (Auto) 53.1, Lymph % (Auto) 30.7, [place] % (Auto) 11.5 H, Eos % (Auto) 3.1, Baso % (Auto) 1.3 H, Absolute Neuts (auto) 3.3, Absolute Lymphs (auto) 1.89, Nucleated RBC % 0 09/16/21 11:00: Sodium 136, Potassium 4.3, Chloride 106, Carbon Dioxide 26.0, Anion Gap 4 L, BUN 13, Creatinine 1.18, Estim Creat Clear Calc 61.01, Est GFR (MDRD) Af Amer 79, Est GFR (MDRD) Non-Af 65, BUN/Creatinine Ratio 11.0, Glucose 162 H, Calcium 9.5, TSH 0.79 09/16/21 11:00: Troponin I High Sens 6 09/16/21 13:35: Troponin I High Sens 6 09/16/21 13:35: Magnesium 2.3 Cardiology Labs/Tests 09/16/21 11:00: WBC 6.2, RBC 5.77, Hgb 17.6 H, Hct 49.7, MCV 86.1, MCH 30.5, MCHC 35.4, Plt Count 257, MPV 9.1, Immature Gran % (Auto) 0.300, Neut % (Auto) 53.1, Lymph % (Auto) 30.7, [place] % (Auto) 11.5 H, Eos % (Auto) 3.1, Baso % (Auto) 1.3 H, Absolute Neuts (auto) 3.3, Nucleated RBC % 0 09/16/21 11:00: Sodium 136, Potassium 4.3, Chloride 106, Carbon Dioxide 26.0, Anion Gap 4 L, BUN 13, Creatinine 1.18, Est GFR (MDRD) Af Amer 79, Est GFR (MDRD) Non-Af 65, BUN/Creatinine Ratio 11.0, Glucose 162 H, Calcium 9.5 09/16/21 13:35: Magnesium 2.3 Rhythm: Atrial flutter EKG: Atrial flutter ECHO: Interpretation Summary The study was technically difficult. Based upon the 2D echocardiographic images obtained there appears to be grossly normal left ventricular size, wall motion, and systolic function. The estimated ejection fraction is 65 %. Trivial mitral valve insufficiency. Trivial tricuspid valve insufficiency. Trivial aortic valve insufficiency. Trivial pulmonic valve insufficiency. Borderline enlarged aortic root. Unable to estimate RV systolic pressure/pulmonary artery pressure due to technically difficult study. Unable to assess diastolic dysfunction. Radiography Diagnostic Testing: Radiology Impression Chest X-Ray 09/16/21 11:00 IMPRESSION: Normal x-ray examination of the chest. Electronically Signed: Willi Vega MD at 11:35 EDT ,
[2021-09-16 17:44] LABS: Troponin-I HS 10 pg/mL (3.0-78.0)
[2021-09-16] MEDS: Tamsulosin HCl 0.4 MG Capsule PO (22:49)
[2021-09-17] VITALS (17 sets, daily range): BP systolic 94–136; BP diastolic 61–81; PULSE 55–95; RESP 12–19; TEMP 35.4–36.6; O2SAT 92–98
--- NOTE | 2021-09-17 05:55 | EKG12_ITS ---
Test Reason : RYTHM CHANGE Blood Pressure : / mmHG Vent. Rate : 060 BPM Atrial Rate : 060 BPM P-R Int : 160 ms QRS Dur : 086 ms QT Int : 420 ms P-R-T Axes : 066 066 055 degrees QTc Int : 420 ms Normal sinus rhythm Normal ECG Confirmed by LAURA GARCÍA, SANDEEP ([id number]), news videotape editor MAGDIEL HULL ([id number]) on 09/18/2021 9:08:24 AM Referred By: GRANT Confirmed By:SANDEEP SANCHEZ MD
--- NOTE | 2021-09-17 05:55 | EKG12_ITS ---
Test Reason : AM EKG Blood Pressure : / mmHG Vent. Rate : 072 BPM Atrial Rate : 072 BPM P-R Int : 154 ms QRS Dur : 094 ms QT Int : 430 ms P-R-T Axes : 020 001 011 degrees QTc Int : 470 ms Normal sinus rhythm Voltage criteria for left ventricular hypertrophy Consider precordial lead misplacement Consider repeat ECG Abnormal ECG Confirmed by LAURA GARCÍA, SANDEEP ([id number]), news videotape editor MAGDIEL HULL ([id number]) on 09/18/2021 9:07:31 AM Referred By: GRANT Confirmed By:SANDEEP SANCHEZ MD
[2021-09-17 06:03] LABS: Absolute Lymphocyte Count 1.92 X10^3/uL (0.83-4.51); Absolute Neutrophil Count 4.4 X10^3/uL (2.0-7.7); Basophil# 0.08 X10^3/uL; Basophil% 1.1 % (0-1); Eosinophil# 0.24 X10^3/uL; Eosinophils% 3.2 % (0-5); Hematocrit 46.1 % (40-54); Hemoglobin 15.9 g/dL (13.0-16.5); Lymphocyte # 1.92 X10^3/ul (0.83-4.51); Lymphocyte % 25.5 % (19-41); Mean Corp Hgb Conc 34.5 g/dL (32-36); Mean Corpuscular Hgb 29.7 pg (27.0-32.0); Monocyte# 0.85 X10^3/uL; Monocyte% 11.3 % (0-10); NRBC Flagged by Analyzer 0 % (0-5); Neutrophil # 4.43 X10^3/uL (2.7-7.7); Neutrophil % 58.8 % (47-70); Platelet Count 222 K/mm3 (150-450); RBC Distribution Width CV 12.6 % (11.6-14.6); RBC Distribution Width SD 39.2 fl (35.1-43.9); Red Blood Count 5.36 M/mm3 (4.6-6.2); White Blood Count 7.5 K/mm3 (4.4-11.0)
[2021-09-17 06:51] LABS: ALB/GLOB Ratio 1.1 RATIO (0.9-2.4); AST(SGOT) 20 U/L (15-37); Alanine Aminotransfer ALT/SGPT 32 U/L (16-61); Albumin, Serum 3.3 g/dL (3.2-5.0); Alkaline Phosphatase 80 U/L (45-117); Anion Gap 6 (5-15); BUN 16 mg/dL (7-18); BUN/Creat Ratio 13.7 RATIO (10-20); Calcium,Total 8.2 mg/dL (8.5-10.1); Chloride 109 mmol/L (98-107); Cholesterol 181 mg/dL (200); Creatinine, Serum 1.17 mg/dL (0.70-1.30); EST Glomerular Filtration Rate 66 mL/min (>60); Est Glom Filt Rate - Afr Amer 79 mL/min (>60); Estimated Creatinine Clearance 61.53 ml/min; Globulin 3.1 g/dL (2.2-4.2); Glucose 117 mg/dL (74-106); High Density Lipoprotein 45 mg/dL; Protein, Total 6.4 g/dL (6.4-8.2); Sodium Level 141 mmol/L (136-145); Thyroid Stim Hormone (TSH) 1.33 uIU/mL (0.358-3.74); Triglycerides 143 mg/dL; Very Low Density Lipoprotein 29 mg/dL (5-40)
[2021-09-17 07:33] LABS: Hemoglobin A1c 5.8 % (3.8-5.6)
--- NOTE | 2021-09-17 07:58 | PN.CARD_ITS ---
Subjective Subjective The patient is awake and alert. He denies any ongoing chest discomfort, difficulty breathing, or obvious palpitations. He states he does not recall sensing a change in his cardiac rate/rhythm from atrial flutter back to sinus rhythm. Objective Data Vital Signs: Vital Signs Temp Pulse Resp BP Pulse Ox 97.9 F 70 12 128/75 H 95 09/17/21 07:30 09/17/21 07:30 09/17/21 07:30 09/17/21 07:30 09/17/21 07:30 Oxygen Delivery Method Room Air Weight: 203 lb 0.732 oz Body Mass Index (BMI) 28.8 Intake & Output: Intake and Output for Last 24 Hours 09/15/21 09/16/21 09/17/21 23:59 23:59 23:59 Intake Total 1583.40 / 1585.90 122.59 / 122.59 Balance 1583.40 / 1585.90 122.59 / 122.59 Lab / Micro Data Result Diagrams: 09/17/21 05:51 09/17/21 05:51 Labs: Laboratory Results - last 24 hr 09/16/21 11:00: WBC 6.2, RBC 5.77, Hgb 17.6 H, Hct 49.7, MCV 86.1, MCH 30.5, MCHC 35.4, RDW Std Deviation 38.3, RDW Coeff of Derek 12.2, Plt Count 257, MPV 9.1, Immature Gran % (Auto) 0.300, Neut % (Auto) 53.1, Lymph % (Auto) 30.7, [place] % (Auto) 11.5 H, Eos % (Auto) 3.1, Baso % (Auto) 1.3 H, Absolute Neuts (auto) 3.3, Absolute Lymphs (auto) 1.89, Nucleated RBC % 0 09/16/21 11:00: Sodium 136, Potassium 4.3, Chloride 106, Carbon Dioxide 26.0, Anion Gap 4 L, BUN 13, Creatinine 1.18, Estim Creat Clear Calc 61.01, Est GFR (MDRD) Af Amer 79, Est GFR (MDRD) Non-Af 65, BUN/Creatinine Ratio 11.0, Glucose 162 H, Calcium 9.5, TSH 0.79 09/16/21 11:00: Troponin I High Sens 6 09/16/21 13:35: Troponin I High Sens 6 09/16/21 13:35: Magnesium 2.3 09/16/21 17:04: Troponin I High Sens 10 09/17/21 05:51: WBC 7.5, RBC 5.36, Hgb 15.9, Hct 46.1, MCV 86.0, MCH 29.7, MCHC 34.5, RDW Std Deviation 39.2, RDW Coeff of Derek 12.6, Plt Count 222, MPV 9.0, Immature Gran % (Auto) 0.100, Neut % (Auto) 58.8, Lymph % (Auto) 25.5, [place] % (Auto) 11.3 H, Eos % (Auto) 3.2, Baso % (Auto) 1.1 H, Absolute Neuts (auto) 4.4, Absolute Lymphs (auto) 1.92, Nucleated RBC % 0 09/17/21 05:51: Sodium 141, Potassium 4.0, Chloride 109 H, Carbon Dioxide 26.0, Anion Gap 6, BUN 16, Creatinine 1.17, Estim Creat Clear Calc 61.53, Est GFR (MDRD) Af Amer 79, Est GFR (MDRD) Non-Af 66, BUN/Creatinine Ratio 13.7, Glucose 117 H, Calcium 8.2 L, Total Bilirubin 0.40, AST 20, ALT 32, Alkaline Phosphatase 80, Total Protein 6.4, Albumin 3.3, Globulin 3.1, Albumin/Globulin Ratio 1.1, Triglycerides 143, Cholesterol 181, LDL Cholesterol 107, VLDL Cholesterol 29, HDL Cholesterol 45, TSH 1.33 09/17/21 05:51: Hemoglobin A1c 5.8 H Cardiology Labs/Tests 09/16/21 11:00: WBC 6.2, RBC 5.77, Hgb 17.6 H, Hct 49.7, MCV 86.1, MCH 30.5, MCHC 35.4, Plt Count 257, MPV 9.1, Immature Gran % (Auto) 0.300, Neut % (Auto) 53.1, Lymph % (Auto) 30.7, [place] % (Auto) 11.5 H, Eos % (Auto) 3.1, Baso % (Auto) 1.3 H, Absolute Neuts (auto) 3.3, Nucleated RBC % 0 09/16/21 11:00: Sodium 136, Potassium 4.3, Chloride 106, Carbon Dioxide 26.0, Anion Gap 4 L, BUN 13, Creatinine 1.18, Est GFR (MDRD) Af Amer 79, Est GFR (M DRD) Non-Af 65, BUN/Creatinine Ratio 11.0, Glucose 162 H, Calcium 9.5 09/16/21 13:35: Magnesium 2.3 09/17/21 05:51: WBC 7.5, RBC 5.36, Hgb 15.9, Hct 46.1, MCV 86.0, MCH 29.7, MCHC 34.5, Plt Count 222, MPV 9.0, Immature Gran % (Auto) 0.100, Neut % (Auto) 58.8, Lymph % (Auto) 25.5, [place] % (Auto) 11.3 H, Eos % (Auto) 3.2, Baso % (Auto) 1.1 H , Absolute Neuts (auto) 4.4, Nucleated RBC % 0 09/17/21 05:51: Sodium 141, Potassium 4.0, Chloride 109 H, Carbon Dioxide 26.0, Anion Gap 6, BUN 16, Creatinine 1.17, Est GFR (MDRD) Af Amer 79, Est GFR (MDRD) Non-Af 66, BUN/Creatinine Ratio 13.7, Glucose 117 H, Calcium 8.2 L, Total Bilirubin 0.40, Triglycerides 143, Cholesterol 181, LDL Cholesterol 107, VLDL Cholesterol 29, HDL Cholesterol 45 09/17/21 05:51: Hemoglobin A1c 5.8 H Rhythm: Sinus rhythm EKG: Sinus rhythm; nonspecific ST segment abnormality Radiography Diagnostic Testing: Radiology Impression Chest X-Ray 09/16/21 11:00 IMPRESSION: Normal x-ray examination of the chest. Electronically Signed: Willi Vega MD at 11:35 EDT , Echocardiogram 09/16/21 14:22 Interpretation Summary The study was technically difficult. Based upon the 2D echocardiographic images obtained there appears to be grossly normal left ventricular size, wall motion, and systolic function. The estimated ejection fraction is 65 %. Trivial mitral valve insufficiency. Trivial tricuspid valve insufficiency. Trivial aortic valve insufficiency. Trivial pulmonic valve insufficiency. Borderline enlarged aortic root. Unable to estimate RV systolic pressure/pulmonary artery pressure due to technically difficult study. Unable to assess diastolic dysfunction. Ordering Physician: Stephanie Broderick Referring Physician: Fabricio Tomas MD Performed By: ANJEL Physical Exam Const alert, oriented x3, no apparent distress and healthy appearing Orientation / Consciousness: awake HEENT normocephalic, head/scalp atraumatic and hearing grossly normal bilaterally Eyes PERRL, EOMs intact bilaterally and conjunctivae normal Neck full ROM, supple and no JVD Resp clear to auscultation bilaterally Cardio regular rate, regular rhythm, S1 normal heart sound and S2 normal heart sound GI normal to inspection, nondistended, normoactive bowel sounds Extremity no pedal edema Skin no rashes or lesions noted Neuro oriented x3, moves all extremities, no focal motor deficits and no sensory deficits noted Psych mental status grossly normal Assessment & Plan Assessment/Plan (1) Atrial flutter with rapid ventricular response: PLAN: The patient has atrial flutter with rapid ventricular response. The etiology is unclear although this could be related to combination of age and hypertension. He will continue evaluation for other obvious etiologies as deemed appropriate. He has demonstrated spontaneous conversion to sinus rhythm. His medications will be readjusted to assist with rate control. His antiarrhythmic therapy will be allowed to discontinue. He will need to be considered for oral systemic anticoagulant therapy. In the interim as part of his overall cardiovascular evaluation he will be asked to undergo evaluation with an exercise tolerance test/imaging study to evaluate for any obvious myocardial ischemia that may be contributing to his overall status. (2) HLD (hyperlipidemia): PLAN: He will continue medical therapy as deemed appropriate (3) HTN (hypertension): PLAN: His blood pressure will need to be followed and he will be treated medically as deemed appropriate. Addt'l Comments The above was discussed and reviewed with the patient. This note was generated using a voice recognition system and there may be incorrect words, spelling or punctuation that were not noted when reviewing the office note prior to saving.
[2021-09-17] MEDS: Cyanocobalamin 500 MCG Tablet 1000 MCG PO (08:18)
[2021-09-17] MEDS: Aspirin 81 MG TAB.CHEW PO (08:18)
[2021-09-17] MEDS: Lisinopril 20 MG Tablet PO (08:19)
[2021-09-17] MEDS: Ezetimibe 10 MG Tablet PO (08:19)
--- NOTE | 2021-09-17 09:46 | NURSING ---
transferred off floor for stress test accompanied by this RN and CHANCELLOR, report given to RN in clinical lab technologist
--- NOTE | 2021-09-17 11:10 | STRESSREP_ITS ---
Stress Test Report Date: 09-17-2021 Procedure: Pharmacologic stress nuclear imaging study Indications: Atrial dysrhythmia/atrial flutter Consent: Per the patient Procedure: The patient underwent pharmacologic (Regadenoson 0.4mg ) evaluation with a peak heart rate of 97 beats per minute (64%predicted maximal heart rate) and a peak blood pressure of 138/80 mmHg. The baseline ECG demonstrated normal sinus rhythm. The peak pharmacologic ECG demonstrated no obvious ECG changes. There were no cardiac dysrhythmias pretest, during pharmacologic infusion, or recovery. There was no complaint of chest discomfort during pharmacologic infusion or recovery. The examination was discontinued secondary to completion of protocol. Impression: 1. Pharmacologic (Regadenoson) evaluation 2. Peak pharmacologic ECG with no obvious ECG changes. 3. There were no cardiac dysrhythmias pretest, during pharmacologic infusion, or recovery. 4. Nuclear images pending Myocardial perfusion imaging study: Technique: The patient was injected with 15.0 millicuries of technetium 99m Cardiolite and subsequently rest SPECT Cardiolite nuclear imaging was obtained in the horizontal long, vertical long, and short axis views. The patient underwent pharmacologic (Regadenoson) evaluation with a peak heart rate of 97 beats per minute (64% percent predicted maximal heart rate) and a peak blood pressure of 138/80 mmHg. The patient was injected with 44.9 millicuries of technetium 99m Cardiolite and subsequently stress SPECT Cardiolite nuclear imaging was obtained in the horizontal long, vertical long, and short axis views. A gated Cardiolite study at peak stress was obtained. Interpretation: Rest and stress SPECT Cardiolite nuclear imaging status post realignment, normalization, and attenuation correction demonstrate relative uniform tracer uptake and myocardial perfusion appearing within normal limits. There is end systolic thickening and brightening. The gated Cardiolite study demonstrates myocardial thickening and inward wall motion. The reported LVEF is 76%. Impression: 1. Relative uniform tracer uptake and myocardial perfusion appearing within normal limits. 2. The gated Cardiolite study reports an LVEF of 76%. This note was generated with [employer] software. It may contain incorrect words, spelling, and punctuation that were not noted in checking the note before signing.
[2021-09-17] MEDS: dilTIAZem CD 240 MG Capsule PO (11:28)
[2021-09-17] MEDS: Enoxaparin 100 MG/ML Syringe 90 MG SC (11:45)
--- NOTE | 2021-09-17 11:45 | CASEMGMT ---
CHETAN DUMONT assessment: Face to Face with patient for initial transition planning/care coordination assessment. CHETAN DUMONT introduced self and role at [facility], pt voices understanding and consents to assessment. Pt is sitting up in bed in no distress on room air. Pt is A/Ox4 and answers all questions appropriately. Pt's is at bedside during assessment. Care providers, pharmacy, and demographics verified/updated. Presentation: Pt c/o elev HR since this am Admitting dx: Afib RVR, flutter PCP: Thom Specialists: grace Duncan Preferred [facility]acy: [facility] Insurance: [facility] A/B, Prescription Benefit: Living Will/HPOA: Pt has LW/HPOA and is aware that they are not on file at [facility]. Pt's and sister are HPOA but pt is unsure on the order. LNOK: Sanjana Horta, ; Renetta Orta, sister Living Arrangements: Pt lives with in 2 story home with bedroom upstairs and states no concerns at home. Pt is independent with ADL's. Transportation: Pt drives self and states no transportation concerns. DME/HHC: Pt has no current DME or need for any further DME. Pt states no hx of HHC or SNF. Pt states no concerns with going home at time of discharge. Pt is retired. Pt does not smoke cigarettes but does drink glass wine daily. Pt voices no further concerns/needs. CM to follow for any further discharge planning/needs. Advised pt to ask for CM if any further questions/concerns/needs arise, voices understanding. Pt goal: Home Plan[place] CHETAN DUMONT
--- NOTE | 2021-09-17 13:01 | DCINST_ITS ---
Discharge Instructions Diet Discharge Diet: Low fat / Low cholesterol and Carb Control Diet Activity Discharge Activity: Return to Normal Activity Dressing / Incision Call your doctor if you observe: Shortness of breath, Dizziness and Chest pain Follow Up Care Test Results: Test results from this visit will be discussed in further detail at your follow-up appointment, if applicable. Discharge Plan Admission Admit Date/Time: 09/16/21 13:46 Primary Reason for Your Visit: New onset a.fib Attending Provider: Fabricio Akers Primary Care Provider: Fabricio Tomas Consulting Providers: Abdi Hutson Discharge Orders/Prescriptions Prescriptions: New diltiazem HCl 240 mg Capsule,Extended Release 24hr 240 mg PO DAILY 30 Days Qty: 30 RF: 0 Eliquis 5 mg tablet 5 mg PO BID Qty: 60 RF: 0 Continued cyanocobalamin (vitamin B-12) 1,000 MCG tablet, sublingual 1,000 mcg sublingual DAILY RF: 0 biotin 2,500 MCG capsule 10,000 mcg PO DAILY RF: 0 multivitamin with folic acid [Thera] 1 TABLET tablet 1 tab PO DAILY RF: 0 lisinopril 20 mg tablet 20 mg PO DAILY RF: 0 tamsulosin 0.4 mg capsule 0.4 mg PO QHS RF: 0 ezetimibe 10 mg tablet 10 mg PO DAILY RF: 0 Discontinued aspirin 81 MG tablet,chewable 81 mg PO DAILY@0800 RF: 0 diltiazem HCl [Cartia XT] 120 mg Capsule,Extended Release 24hr 120 mg PO DAILY RF: 0 Referrals / Follow Up: Fabricio Tomas MD [Primary Care Provider] - In 1 Week Abdi Hutson MD [STAFF PHYSICIAN] - Within 2 Weeks (May see LABORATORY CHEMIST/PA) Disposition Disposition (needs filled in before D/C Order can be placed): Home, Self Care
--- NOTE | 2021-09-17 13:05 | DS.PCM_ITS ---
Documented by User: Zhane Art NP, PHARMACEUTICAL ENGINEER-C 09/17/21 13:10 Providers Date of Admission: 09/16/21 Date of Discharge: 09/17/21 Primary Care Physician: Dr. Fabricio Tomas MD Consultations 09/16/21 14:22 Consult: Cardiology Routine Consulting Provider: Abdi Hutson Reason for Consult: PAF/Flutter w/ RVR, new onset EMERGENT Consult: No MD Notified: Yes Date Notified: 09/16/21 Time Notified: 13:50 Method of Notification: Text Reason For Visit: AFIB, RVR Diagnosis Discharge Diagnosis (1) Atrial flutter with rapid ventricular response: Status: Acute Code(s): I48.92 - Unspecified atrial flutter (2) HLD (hyperlipidemia): Status: Inactive Code(s): E78.5 - Hyperlipidemia, unspecified (3) HTN (hypertension): Status: Acute Code(s): I10 - Essential (primary) hypertension Medications at Discharge Home Medications biotin 10,000 mcg PO DAILY 12/03/14 cyanocobalamin (vitamin B-12) 1,000 mcg SUBLINGUAL DAILY 12/03/14 multivitamin with folic acid [Thera] 1 tab PO DAILY 12/03/14 ezetimibe 10 mg PO DAILY 09/16/21 lisinopril 20 mg PO DAILY 09/16/21 tamsulosin 0.4 mg PO QHS 09/16/21 apixaban [Eliquis] 5 mg PO BID #60 tab 09/17/21 diltiazem HCl 240 mg PO DAILY 30 Days #30 cap 09/17/21 Hospital Course Operations None Procedures 2-D Echocardiogram and Stress test Summary of Care Provided Hospital Course: Patient is a 71-year-old male admitted 09/16/2021 due to increased heart rate. 1. New onset A. fib/a flutter with RVR-cardiology consulted during admission. Placed on IV amiodarone drip which was subsequently discontinued. Troponin negative. Nuclear stress test negative for ischemia. Echocardiogram demonstrated an EF of 65%. Patient converted to sinus rhythm. Increased home Cardizem CD to 240 mg daily. Initiated on Eliquis 5 mg twice daily. 2. Prediabetes-hemoglobin A1c 5.8%. Recommend dietary modifications. 3. Hypertension-stable, continue Cardizem, lisinopril. 4. Hyperlipidemia-continue statin, Zetia. 5. BPH-on Flomax. Patient seen and examined prior to discharge. Physical assessment as noted below. Patient is stable for discharge with follow up recommendations as noted above. This patient was seen by ANA Kitchen under the supervision of Dr. Akers. Time spent examining patient, reviewing data and subsequent management of care: 15 minutes Physical Exam Const alert, oriented x3 and no apparent distress Orientation / Consciousness: awake, oriented to person, oriented to place and oriented to time HEENT normocephalic and moist oral mucous membranes Eyes PERRL, EOMs intact bilaterally and conjunctivae normal Neck no lymphadenopathy Resp normal respiratory effort and clear to auscultation bilaterally Cardio regular rate, regular rhythm and no murmurs Peripheral Pulses: pulses 2+ throughout GI normal to inspection, nondistended, normoactive bowel sounds, non-tender and non-distended Extremity normal to inspection Skin no rashes or lesions noted Lesions: no lesions Rashes: no rashes Trauma: no lacerations or abrasions Neuro CN's II-XII intact bilaterally, no focal motor deficits, no sensory deficits noted and deep tendon reflexes 2+ bilaterally Psych mental status grossly normal and affect normal Weight / BMI Weight Weight: 203 lb 0.732 oz Body Mass Index (BMI) 28.8 ABG / Lab / Microbiology Data Result Diagrams: 09/17/21 05:51 09/17/21 05:51 Laboratory: Laboratory Results - last 24 hr 09/16/21 13:35: Troponin I High Sens 6 09/16/21 13:35: Magnesium 2.3 09/16/21 17:04: Troponin I High Sens 10 09/17/21 05:51: WBC 7.5, RBC 5.36, Hgb 15.9, Hct 46.1, MCV 86.0, MCH 29.7, MCHC 34.5, RDW Std Deviation 39.2, RDW Coeff of Derek 12.6, Plt Count 222, MPV 9.0, Immature Gran % (Auto) 0.100, Neut % (Auto) 58.8, Lymph % (Auto) 25.5, [place] % (Auto) 11.3 H, Eos % (Auto) 3.2, Baso % (Auto) 1.1 H, Absolute Neuts (auto) 4.4, Absolute Lymphs (auto) 1.92, Nucleated RBC % 0 09/17/21 05:51: Sodium 141, Potassium 4.0, Chloride 109 H, Carbon Dioxide 26.0, Anion Gap 6, BUN 16, Creatinine 1.17, Estim Creat Clear Calc 61.53, Est GFR (MDRD) Af Amer 79, Est GFR (MDRD) Non-Af 66, BUN/Creatinine Ratio 13.7, Glucose 117 H, Calcium 8.2 L, Total Bilirubin 0.40, AST 20, ALT 32, Alkaline Phosphatase 80, Total Protein 6.4, Albumin 3.3, Globulin 3.1, Albumin/Globulin Ratio 1.1, Triglycerides 143, Cholesterol 181, LDL Cholesterol 107, VLDL Cholesterol 29, HDL Cholesterol 45, TSH 1.33 09/17/21 05:51: Hemoglobin A1c 5.8 H Radiography Diagnostic Testing: Radiology Impression Echocardiogram 09/16/21 14:22 Interpretation Summary The study was technically difficult. Based upon the 2D echocardiographic images obtained there appears to be grossly normal left ventricular size, wall motion, and systolic function. The estimated ejection fraction is 65 %. Trivial mitral valve insufficiency. Trivial tricuspid valve insufficiency. Trivial aortic valve insufficiency. Trivial pulmonic valve insufficiency. Borderline enlarged aortic root. Unable to estimate RV systolic pressure/pulmonary artery pressure due to technically difficult study. Unable to assess diastolic dysfunction. __ Ordering Physician: Stephanie Broderick Referring Physician: Fabricio Tomas MD Performed By: ANJEL D/C Instructions Discharge Diet: Low fat / Low cholesterol and Carb Control Diet Call your doctor if you observe: Shortness of breath, Dizziness and Chest pain Meaningful Use Info Meaningful Use Diagnoses (Choose all that apply): None applicable Discharge Plan Admission Admit Date/Time: 09/16/21 13:46 Primary Reason for Your Visit: New onset a.fib Attending Provider: Fabricio Akers Primary Care Provider: Fabricio Tomas Consulting Providers: Abdi Hutson Discharge Orders/Prescriptions Prescriptions: New diltiazem HCl 240 mg Capsule,Extended Release 24hr 240 mg PO DAILY 30 Days Qty: 30 RF: 0 Eliquis 5 mg tablet 5 mg PO BID Qty: 60 RF: 0 Continued cyanocobalamin (vitamin B-12) 1,000 MCG tablet, sublingual 1,000 mcg sublingual DAILY RF: 0 biotin 2,500 MCG capsule 10,000 mcg PO DAILY RF: 0 multivitamin with folic acid [Thera] 1 TABLET tablet 1 tab PO DAILY RF: 0 lisinopril 20 mg tablet 20 mg PO DAILY RF: 0 tamsulosin 0.4 mg capsule 0.4 mg PO QHS RF: 0 ezetimibe 10 mg tablet 10 mg PO DAILY RF: 0 Discontinued aspirin 81 MG tablet,chewable 81 mg PO DAILY@0800 RF: 0 diltiazem HCl [Cartia XT] 120 mg Capsule,Extended Release 24hr 120 mg PO DAILY RF: 0 Referrals / Follow Up: Fabricio Tomas MD [Primary Care Provider] - In 1 Week Abdi Hutson MD [STAFF PHYSICIAN] - Within 2 Weeks (May see PHARMACEUTICAL ENGINEER/PA) Disposition Disposition (needs filled in before D/C Order can be placed): Home, Self Care Documented by User: Dr. Fabricio Akers DO 09/17/21 13:40 Providers Date of Admission: 09/16/21 Reason For Visit: AFIB, RVR Medications at Discharge Home Medications biotin 10,000 mcg PO DAILY 12/03/14 cyanocobalamin (vitamin B-12) 1,000 mcg SUBLINGUAL DAILY 12/03/14 multivitamin with folic acid [Thera] 1 tab PO DAILY 12/03/14 ezetimibe 10 mg PO DAILY 09/16/21 lisinopril 20 mg PO DAILY 09/16/21 tamsulosin 0.4 mg PO QHS 09/16/21 apixaban [Eliquis] 5 mg PO BID #60 tab 09/17/21 diltiazem HCl 240 mg PO DAILY 30 Days #30 cap 09/17/21 Hospital Course Operations None Procedures 2-D Echocardiogram and Stress test Summary of Care Provided Minutes Spent on Discharge: 24 Hospital Course: Patient seen and examined independently. Data and vitals reviewed. I agree with the above note by the nurse practitioner. This is a 41-year-old male presents with A. fib with RVR. Patient was put on amiodarone drip and then did convert to normal sinus rhythm. Patient underwent a 2D echocardiogram showed an EF of 65%. Patient also had a stress test that was unremarkable. Patient was seen in consultation by cardiology. Patient be discharged on 240 mg of diltiazem CD as well as anticoagulation with apixaban. Patient follow-up with cardiology as outpatient. Patient improved faster than anticipated at which is why he is being discharged the following day. Physical Exam Const alert and no apparent distress Cardio regular rate, regular rhythm, S1 normal heart sound and S2 normal heart sound GI normal to inspection, nondistended, normoactive bowel sounds, soft to palpation and non-tender Extremity normal to inspection and full ROM Neuro oriented x3 Sensorium / Orientation: awake, alert and oriented to person ABG / Lab / Microbiology Data Result Diagrams: 09/17/21 05:51 09/17/21 05:51 Discharge Plan Admission Admit Date/Time: 09/16/21 13:46 Primary Reason for Your Visit: New onset a.fib Attending Provider: Fabricio Akers Primary Care Provider: Fabricio Tomas Consulting Providers: Abdi Hutson Discharge Orders/Prescriptions Prescriptions: New diltiazem HCl 240 mg Capsule,Extended Release 24hr 240 mg PO DAILY 30 Days Qty: 30 RF: 0 Eliquis 5 mg tablet 5 mg PO BID Qty: 60 RF: 0 Continued cyanocobalamin (vitamin B-12) 1,000 MCG tablet, sublingual 1,000 mcg sublingual DAILY RF: 0 biotin 2,500 MCG capsule 10,000 mcg PO DAILY RF: 0 multivitamin with folic acid [Thera] 1 TABLET tablet 1 tab PO DAILY RF: 0 lisinopril 20 mg tablet 20 mg PO DAILY RF: 0 tamsulosin 0.4 mg capsule 0.4 mg PO QHS RF: 0 ezetimibe 10 mg tablet 10 mg PO DAILY RF: 0 Discontinued aspirin 81 MG tablet,chewable 81 mg PO DAILY@0800 RF: 0 diltiazem HCl [Cartia XT] 120 mg Capsule,Extended Release 24hr 120 mg PO DAILY RF: 0 Referrals / Follow Up: Fabricio Tomas MD [Primary Care Provider] - In 1 Week Abdi Hutson MD [STAFF PHYSICIAN] - Within 2 Weeks (May see PHARMACEUTICAL ENGINEER/PA) Disposition Disposition (needs filled in before D/C Order can be placed): Home, Self Care Charges/Coding Visit Charges Inpatient E&M: 15303 Disch Hosp
--- NOTE | 2021-09-17 14:32 | CASEMGMT ---
Pt to be sent home on Eliquis at discharge and med e-scribed to [facility] pharmacy previously. Call to [facility]'s to verify coverage/co-pay for pt and per pharmacist, pt's co-pay is $38. Pt updated and provided with Eliquis 30 day free trial card, voices understanding. Pt/ voice no further questions/concerns/needs. SStnamita BENTON CM
--- NOTE | 2021-09-17 14:42 | PHA.DC.MC ---
Pharmacy Service has performed discharge medication reconciliation and counseling for this patient. 1. APIXABAN 5MG PO BID The patient's discharge medication list was reviewed for discrepancies and discrepancies were resolved. Home Medications biotin 10,000 mcg PO DAILY 12/03/14 cyanocobalamin (vitamin B-12) 1,000 mcg SUBLINGUAL DAILY 12/03/14 multivitamin with folic acid [Thera] 1 tab PO DAILY 12/03/14 ezetimibe 10 mg PO DAILY 09/16/21 lisinopril 20 mg PO DAILY 09/16/21 tamsulosin 0.4 mg PO QHS 09/16/21 apixaban [Eliquis] 5 mg PO BID #60 tab 09/17/21 diltiazem HCl 240 mg PO DAILY 30 Days #30 cap 09/17/21 The patient was counseled on the following discharge medications and changes in medications for homegoing were reviewed. The Reason for Use, instructions for use, and potential side effects were reviewed for all new medications. The patient's questions regarding all of their medications were answered. The patient was able to verbally demonstrate an understanding of their discharge medications.
== END 2021-09-17 15:04 | disposition home or self-care (01) | DRG 310 ==
LOC: ED 13:33 → PCU 14:26
PROVIDERS: Admitting Provider Family Medicine; Emergency Provider Emergency Medicine; PCP Family Medicine
DX: I48.0 Paroxysmal atrial fibrillation (principal); E78.5 Hyperlipidemia, unspecified; I48.92 Unspecified atrial flutter; I10 Essential (primary) hypertension; N40.0 Benign prostatic hyperplasia without lower urinary tract symptoms; R73.9 Hyperglycemia, unspecified; Z79.82 Long term (current) use of aspirin; Z79.01 Long term (current) use of anticoagulants; Z79.899 Other long term (current) drug therapy
CPT/HCPCS: 36415; 71045; 78452; 80048; 80053; 80061; 83036; 83735; 84443; 84484; 85025; 93005; 93017; 93306; 99285; A9500; J7030; A4216; J2785

== ENCOUNTER → 2022-01-07 | Outpatient (CLI) | payer MEDICARE, OTHER, SELFPAY ==
[2022-01-07 10:36] LABS: Hemoglobin A1c 5.7 % (3.8-5.6)
[2022-01-07 10:45] LABS: PSA,Total- Diagnostic 6.46 ng/mL (0.0-4.0)
[2022-01-07 10:48] LABS: Microalbumin:Creatinine Ratio 5.6 mg/g CRE (<30 mg/g CRE)
== END | disposition home or self-care (01) ==
PROVIDERS: PCP Family Medicine; Referring Provider Family Medicine; Visit Provider Family Medicine
DX: R73.03 Prediabetes (principal); R97.20 Elevated prostate specific antigen [PSA]
CPT/HCPCS: 36415; 82043; 82570; 83036; 84153

== ENCOUNTER 2022-05-14 09:32 | Emergency (ER) | payer MEDICARE, OTHER, SELFPAY ==
[2022-05-14] VITALS (10 sets, daily range): BP systolic 82–126; BP diastolic 53–83; PULSE 46–157; RESP 16–20; TEMP 36.1; O2SAT 92–100; BMI 29.3
--- NOTE | 2022-05-14 10:14 | EX.ED.DYSGE1 ---
HPI History of Present Illness Chief Complaint: Palpitations Informant: patient Onset/Context/Timing Onset: Yesterday Context: Sudden Onset Timing: Continuous Quality: Irregular rapid Location: Chest Current Severity: Moderate Maximum Severity: Moderate Worsened by: Nothing Relieved by: Nothing Associated Symptoms Associated Symptoms: None Narrative Narrative: Patient has history of atrial fibrillation/atrial flutter, he states he usually can feel it when he goes into it, and that happened yesterday afternoon. He states later in the day it felt more like atrial flutter which he has been in before, he was checking his pulse and it was steady around 155 and did not change and he was not feeling as much skipping just racing. Denies any lightheadedness, near-syncope, syncope, chest pain, dyspnea, or other illness recently, no other systemic symptoms. Diet has been normal. He has been anticoagulated for over 6 months on Eliquis and compliant with his medications which also include diltiazem 240 CD, he took that already this morning. [facility] Medical History Atrial flutter with rapid ventricular response BPH (benign prostatic hyperplasia) Essential hypertension Hyperlipidemia Home Medications biotin 2,500 mcg capsule 10,000 mcg PO DAILY 12/03/14 [History Last Taken 09/16/21] cyanocobalamin (vitamin B-12) 1,000 mcg sublingual tablet 1,000 mcg sublingual DAILY 12/03/14 [History Last Taken 09/16/21] multivitamin with folic acid 400 mcg tablet (Thera) 1 tab PO DAILY 12/03/14 [History Last Taken 09/16/21] ezetimibe 10 mg tablet 10 mg PO DAILY 09/16/21 [History Last Taken 09/16/21] lisinopril 20 mg tablet 20 mg PO DAILY 09/16/21 [History Last Taken 09/16/21] tamsulosin 0.4 mg capsule 0.4 mg PO QHS 09/16/21 [History Last Taken 09/15/21] apixaban 5 mg tablet (Eliquis) 5 mg PO BID #180 tabs 10/08/21 [Rx Last Taken Unknown] diltiazem HCl 240 mg capsule,extended release 24 hr 240 mg PO DAILY 90 days #90 caps 10/08/21 [Rx Last Taken Unknown] hydrochlorothiazide 12.5 mg tablet 12.5 mg PO DAILY 10/08/21 [History Last Taken Unknown] Allergy/AdvReac Type Severity Reaction Status Date / Time No Known Allergies Allergy Verified 05/14/22 09:32 Family History Mother Heart disease Myocardial infarction Father Cancer Metastatic cancer, unclear specific primary but family notes bone involvement. Surgical History No history of previous surgery Social History household members: spouse Smoking Status: Never smoker alcohol intake: current alcohol intake frequency: a few times a week Alcohol type: wine substance use type: does not use caffeine: Yes Type: tea Number of servings: 1 ROS ROS ED Constitutional Constitutional ED: Denies chills or fever(s) Eyes Eyes: Denies change in vision or diplopia ENT ENT ED: Denies rhinorrhea or sore throat Cardiovascular Cardiovascular: Reports as per HPI, palpitations and racing heartbeat; Denies chest pain Respiratory/Chest Respiratory/Chest: Denies cough or dyspnea Gastrointestinal Gastrointestinal: Denies abdominal pain, diarrhea, nausea or vomiting Genitourinary Genitourinary ED: Denies dysuria or hematuria Musculoskeletal Musculoskeletal: Denies back pain or neck pain Integumentary Denies abscess or rash Neurologic Neurologic: Denies headache(s), paresthesias or weakness Psychiatric Psychiatric: Denies anxiety or suicidal thoughts EXAM Physical Exam Const Vital Signs: 05/14/22 09:33 05/14/22 09:40 05/14/22 10:21 Temperature 96.9 F L 96.9 F L Temperature Source Temporal Pulse Rate 157 H 134 H Pulse Rate [1 (Initial Baseline)] Pulse Rate [2] Pulse Rate [3] Respiratory Rate 18 18 Respiratory Rate [1 (Initial Baseline)] Respiratory Rate [2] Respiratory Rate [3] Respiratory Effort Normal Non-Labored Respiratory Pattern Normal Blood Pressure 126/79 H 105/76 Blood Pressure [1 (Initial Baseline)] Blood Pressure [2] Blood Pressure [3] Blood Pressure Mean 94 Pulse Ox 100 92 Oxygen Delivery Method Room Air Room Air Oxygen Delivery Method [1 (Initial Baseline)] Oxygen Delivery Method [2] Oxygen Delivery Method [3] Oxygen Flow Rate (L/min) Oxygen Flow Rate (L/min) [1 (Initial Baseline)] Oxygen Flow Rate (L/min) [2] Oxygen Flow Rate (L/min) [3] 05/14/22 10:53 05/14/22 11:02 05/14/22 11:03 Temperature Temperature Source Pulse Rate 81 87 Pulse Rate [1 (Initial Baseline)] 88 Pulse Rate [2] 90 Pulse Rate [3] 46 L Respiratory Rate 16 Respiratory Rate [1 (Initial Baseline)] 20 H Respiratory Rate [2] 18 Respiratory Rate [3] 16 Respiratory Effort Respiratory Pattern Blood Pressure 106/68 96/71 Blood Pressure [1 (Initial Baseline)] 96/71 Blood Pressure [2] 119/83 H Blood Pressure [3] 88/62 L Blood Pressure Mean 80 79 Pulse Ox 95 Oxygen Delivery Method Nasal Cannula Oxygen Delivery Method [1 (Initial Baseline)] Nasal Cannula Oxygen Delivery Method [2] Nasal Cannula Oxygen Delivery Method [3] Nasal Cannula Oxygen Flow Rate (L/min) 2 Oxygen Flow Rate (L/min) [1 (Initial Baseline)] 2 Oxygen Flow Rate (L/min) [2] 2 Oxygen Flow Rate (L/min) [3] 4 05/14/22 11:10 05/14/22 11:15 05/14/22 11:20 Temperature Temperature Source Pulse Rate Pulse Rate [1 (Initial Baseline)] Pulse Rate [2] Pulse Rate [3] Respiratory Rate Respiratory Rate [1 (Initial Baseline)] Respiratory Rate [2] Respiratory Rate [3] Respiratory Effort Respiratory Pattern Blood Pressure Blood Pressure [1 (Initial Baseline)] Blood Pressure [2] Blood Pressure [3] Blood Pressure Mean Pulse Ox Oxygen Delivery Method Nasal Cannula Nasal Cannula Nasal Cannula Oxygen Delivery Method [1 (Initial Baseline)] Oxygen Delivery Method [2] Oxygen Delivery Method [3] Oxygen Flow Rate (L/min) 4 7 4 Oxygen Flow Rate (L/min) [1 (Initial Baseline)] Oxygen Flow Rate (L/min) [2] Oxygen Flow Rate (L/min) [3] 05/14/22 11:25 05/14/22 12:17 Temperature Temperature Source Pulse Rate 68 Pulse Rate [1 (Initial Baseline)] Pulse Rate [2] Pulse Rate [3] Respiratory Rate 16 Respiratory Rate [1 (Initial Baseline)] Respiratory Rate [2] Respiratory Rate [3] Respiratory Effort Respiratory Pattern Blood Pressure 100/64 Blood Pressure [1 (Initial Baseline)] Blood Pressure [2] Blood Pressure [3] Blood Pressure Mean Pulse Ox 98 Oxygen Delivery Method Room Air Oxygen Delivery Method [1 (Initial Baseline)] Oxygen Delivery Method [2] Oxygen Delivery Method [3] Oxygen Flow Rate (L/min) Oxygen Flow Rate (L/min) [1 (Initial Baseline)] Oxygen Flow Rate (L/min) [2] Oxygen Flow Rate (L/min) [3] Positive well nourished and well developed General Appearance ED: well developed and NAD HEENT Reports moist mucous membranes normocephalic and atraumatic Eyes PERRL and EOMs intact bilaterally Neck full ROM and supple Resp normal respiratory effort and clear to auscultation bilaterally Cardio regular rate, regular rhythm and no murmurs Rate: tachycardic GI non-tender and non-distended Auscultation: normoactive bowel sounds Palpation: soft Back/Spine no CVA tenderness General Back: other FROM Extremity normal to inspection General Extremety ED: Negative for edema, pulses abnormal or tenderness General Extremity: Negative for edema or pulses abnormal Neuro oriented x3, CN's II-XII intact bilaterally and no sensory deficits noted Sensorium / Orientation: awake and alert Motor Exam: strength 5/5 throughout Skin no rashes or lesions noted and no wounds MDM MDM MDM Narrative Medical decision making narrative: Patient's blood pressure is 105/72, and he appears to be in rapid a flutter in the low 150s. His EKG does not show any ischemic abnormalities and he is not having any symptoms to suggest that. I think the best plan with his blood pressure being this low and the fact that he already took his diltiazem would be to electrically cardiovert him. I discussed the pros and cons of that and he is in agreement, in addition to the fact that we would get him out of it quicker more than likely. This was done, see the procedure note. Prior to the procedure, the patient did begin to slow his rate down, and he was still feeling the symptoms just less prominently and often, it was noted on the monitor that he was in rate-controlled atrial flutter every time I checked on him including just prior to sedating him at the time of the procedure. Therefore I recommended continuing with that to get him out of the dysrhythmia and he was amenable. He was observed afterwards, there were no recurrence of dysrhythmias or other events and he felt better and was discharged with his to home to follow-up with his vascular surgeon. Lab Data Attestation: I reviewed the patient's lab results. Labs: Laboratory Results - last 24 hr 05/14/22 05/14/22 09:45 09:45 WBC 8.0 RBC 5.80 Hgb 17.3 H Hct 50.4 MCV 86.9 MCH 29.8 MCHC 34.3 RDW Std Deviation 38.9 RDW Coeff of Derek 12.3 Plt Count 275 MPV 9.2 Immature Gran % (Auto) 0.100 Neut % (Auto) 61.3 Lymph % (Auto) 25.6 [place] % (Auto) 10.2 H Eos % (Auto) 1.8 Baso % (Auto) 1.0 Absolute Neuts (auto) 4.9 Absolute Lymphs (auto) 2.04 Nucleated RBC % 0 Sodium 139 Potassium 4.0 Chloride 106 Carbon Dioxide 26.0 Anion Gap 7 BUN 14 Creatinine 1.22 Estim Creat Clear Calc 56.34 Est GFR (MDRD) Af Amer 76 Est GFR (MDRD) Non-Af 62 BUN/Creatinine Ratio 11.5 Glucose 132 H Calcium 9.8 Rhythm Strip Rhythm Strip: aflutter Rate: 155 Ectopy: None EKG Initial EKG: Attestation: I personally reviewed and interpreted this EKG as follows: Interpretation: Atrial Flutter (w/ RVR) Follow-up EKG: Attestation: I personally reviewed and interpreted this EKG as follows: Interpretation: Sinus Rhythm and No Acute Injury Pattern Comments: (post-cardioversion) Procedures Procedural Sedation 1 (Initial Baseline): Consent Signed: Yes Any Problems With Anesthesia: No You/Your family experience fever (hyperthermia) w/anesthesia: No Sedation medication: Etomidate Dose: 10 Route: IV Total Moderate Sedation Units: 16 Mallampati Score: Class II ASA Classification: II Comment:: IV fluids and monitor, oxygen all place prior to sedation. Fentanyl 25 mcg given prior to etomidate 10 mg. After cardioversion/sedation, there was transient hypotension that was short-lived and treated successfully with the IV fluids, and transient hypoxia in the 80s, patient was never completely apneic just breathing shallow, we did not have to bag him, we did a jaw thrust to move the nasal cannula to his mouth since he was breathing through it, and he recovered otherwise uneventfully. Other Procedures Procedure(s): Cardioversion: Patient has been n.p.o. overnight. Discussed pros and cons, present, informed consent obtained prior to the procedure and prior to sedation. Initially cardioverted with 20 J biphasic energy synchronized cardioversion due to patient in rate controlled atrial flutter. The result of this was rate controlled atrial fibrillation, so then he was immediately cardioverted a second time, synchronized biphasic 200 J, 2 sinus bradycardia in the 30s, which then improved to 50. No complications. Critical Care Time Critical Care Time: Yes Critical care time (excluding procedures): 30-74 minutes (40 min, not including procedure time), Including time spent:, Discussing w/Patient &/or Family/Chipper Machine Operator and Performing Direct Patient Care at Bedside Discharge Plan Triage Chief Complaint: Palpitations ED Provider: Nathen Fleming Dx/Rx/DC Orders Clinical Impression: Atrial flutter with rapid ventricular response, Atrial fibrillation with RVR Instructions: ED Atrial Flutter Prescriptions: No Action hydrochlorothiazide 12.5 mg tablet 12.5 mg PO DAILY Eliquis 5 mg tablet 5 mg PO BID Qty: 180 3RF diltiazem HCl 240 mg capsule,extended release 24hr 240 mg PO DAILY 90 Days Qty: 90 3RF cyanocobalamin (vitamin B-12) 1,000 MCG tablet, sublingual 1,000 mcg sublingual DAILY biotin 2,500 MCG capsule 10,000 mcg PO DAILY multivitamin with folic acid [Thera] 1 TABLET tablet 1 tab PO DAILY lisinopril 20 mg tablet 20 mg PO DAILY tamsulosin 0.4 mg capsule 0.4 mg PO QHS ezetimibe 10 mg tablet 10 mg PO DAILY Primary Care Provider: Fabricio Tomas Referrals: Fabricio Tomas MD [Primary Care Provider] - Abdi Hutson MD [Med Staff - Active Staff] - 1 Week Disposition Disposition: Home, Self Care Discharge Date/Time: 05/14/22 12:24
[2022-05-14 10:20] LABS: Absolute Lymphocyte Count 2.04 X10^3/uL (0.83-4.51); Absolute Neutrophil Count 4.9 X10^3/uL (2.0-7.7); Basophil# 0.08 X10^3/uL; Eosinophil# 0.14 X10^3/uL; Eosinophils% 1.8 % (0-5); Hematocrit 50.4 % (40-54); Hemoglobin 17.3 g/dL (13.0-16.5); Lymphocyte # 2.04 X10^3/ul (0.83-4.51); Lymphocyte % 25.6 % (19-41); Mean Corp Hgb Conc 34.3 g/dL (32-36); Mean Corpuscular Hgb 29.8 pg (27.0-32.0); Mean Corpuscular Volume 86.9 fL (80-94); Mean Platelet Vol. 9.2 fl (6.2-12.0); Monocyte# 0.81 X10^3/uL; Monocyte% 10.2 % (0-10); NRBC Flagged by Analyzer 0 % (0-5); Neutrophil # 4.89 X10^3/uL (2.7-7.7); Neutrophil % 61.3 % (47-70); Platelet Count 275 K/mm3 (150-450); RBC Distribution Width CV 12.3 % (11.6-14.6); RBC Distribution Width SD 38.9 fl (35.1-43.9)
[2022-05-14 10:35] LABS: Anion Gap 7 (5-15); BUN 14 mg/dL (7-18); BUN/Creat Ratio 11.5 RATIO (10-20); Calcium,Total 9.8 mg/dL (8.5-10.1); Chloride 106 mmol/L (98-107); Creatinine, Serum 1.22 mg/dL (0.70-1.30); EST Glomerular Filtration Rate 62 mL/min (>60); Est Glom Filt Rate - Afr Amer 76 mL/min (>60); Estimated Creatinine Clearance 56.34 ml/min; Glucose 132 mg/dL (74-106); Sodium Level 139 mmol/L (136-145)
[2022-05-14] MEDS: fentaNYL 100 MCG/2 ML Ampul 25 MCG IV (11:03)
[2022-05-14] MEDS: Etomidate 20 MG/10 ML Vial 10 MG IV (11:07)
== END 2022-05-14 12:24 | disposition home or self-care (01) ==
PROVIDERS: Emergency Provider Emergency Medicine; PCP Family Medicine; Visit Provider Emergency Medicine
DX: I48.91 Unspecified atrial fibrillation (principal); I48.92 Unspecified atrial flutter; R00.2 Palpitations; I10 Essential (primary) hypertension; E78.5 Hyperlipidemia, unspecified; Z79.01 Long term (current) use of anticoagulants
CPT/HCPCS: 80048; 85025; 92960; 93005; 96361; 96374; 96375; 99284; J7030; A4216

== ENCOUNTER → 2022-07-02 | Outpatient (CLI) | payer MEDICARE, OTHER, SELFPAY ==
[2022-07-02 12:01] LABS: Absolute Lymphocyte Count 1.71 X10^3/uL (0.83-4.51); Absolute Neutrophil Count 4.5 X10^3/uL (2.0-7.7); Basophil# 0.08 X10^3/uL; Basophil% 1.1 % (0-1); Eosinophils% 1.4 % (0-5); Hematocrit 52.6 % (40-54); Hemoglobin 17.9 g/dL (13.0-16.5); Lymphocyte # 1.71 X10^3/ul (0.83-4.51); Lymphocyte % 24.3 % (19-41); Mean Corpuscular Hgb 29.3 pg (27.0-32.0); Mean Corpuscular Volume 86.1 fL (80-94); Mean Platelet Vol. 9.4 fl (6.2-12.0); Monocyte# 0.61 X10^3/uL; Monocyte% 8.7 % (0-10); NRBC Flagged by Analyzer 0 % (0-5); Neutrophil # 4.46 X10^3/uL (2.7-7.7); Neutrophil % 63.4 % (47-70); Platelet Count 279 K/mm3 (150-450); RBC Distribution Width CV 12.2 % (11.6-14.6); RBC Distribution Width SD 38.5 fl (35.1-43.9); Red Blood Count 6.11 M/mm3 (4.6-6.2)
[2022-07-02 12:16] LABS: AST(SGOT) 27 U/L (15-37); Alanine Aminotransfer ALT/SGPT 43 U/L (16-61); Alkaline Phosphatase 94 U/L (45-117); Anion Gap 9 (5-15); BUN 18 mg/dL (7-18); BUN/Creat Ratio 12.7 RATIO (10-20); Calcium,Total 9.8 mg/dL (8.5-10.1); Chloride 107 mmol/L (98-107); Cholesterol 198 mg/dL (200); Creatinine, Serum 1.42 mg/dL (0.70-1.30); EST Glomerular Filtration Rate 52 mL/min (>60); Est Glom Filt Rate - Afr Amer 63 mL/min (>60); Glucose 117 mg/dL (74-106); High Density Lipoprotein 60 mg/dL; Potassium 4.4 mmol/L (3.5-5.1); Sodium Level 142 mmol/L (136-145); Triglycerides 120 mg/dL; Very Low Density Lipoprotein 24 mg/dL (5-40)
[2022-07-02 12:32] LABS: Hemoglobin A1c 5.5 % (3.8-5.6); Microalbumin,Random Urine 13.9 mg/L (NO RANGE EST.); Microalbumin:Creatinine Ratio 10.3 mg/g CRE (<30 mg/g CRE)
[2022-07-02 12:53] LABS: Microalbumin,Random Urine 15.7 mg/L (NO RANGE EST.); Microalbumin:Creatinine Ratio 11.4 mg/g CRE (<30 mg/g CRE)
== END | disposition home or self-care (01) ==
LOC: MTLAB 10:03
PROVIDERS: PCP Family Medicine; Referring Provider Family Medicine; Visit Provider Family Medicine
DX: L40.9 Psoriasis, unspecified (principal); N18.2 Chronic kidney disease, stage 2 (mild); R73.03 Prediabetes
CPT/HCPCS: 36415; 80053; 80061; 82043; 82306; 82570; 83036; 85025

== ENCOUNTER → 2023-02-01 | Outpatient (CLI) | payer MEDICARE, OTHER, SELFPAY | END | disposition home or self-care (01) | LOC: LAB 10:34 | PROVIDERS: PCP Family Medicine; Referring Provider Nurse Practitioner; Visit Provider Nurse Practitioner | DX: Z12.5 Encounter for screening for malignant neoplasm of prostate (principal) | CPT/HCPCS: 36415; 84153; G0103 ==

== ENCOUNTER → 2023-03-25 | Outpatient (CLI) | payer MEDICARE, OTHER, SELFPAY ==
--- NOTE | 2023-03-25 11:32 | MRI_ITS ---
EXAMINATION: MR Prostate WO/W Contrast COMPARISON: None CLINICAL HISTORY: 73-year-old man with elevated PSA Most recent PSA = 8.8 ng/ml; PSA date = 02/01/2023 TECHNIQUE: Standard prostate MR protocol was used before and after administration of 18 mL clariscan. FINDINGS: Prostate volume: 6.5 x 4.1 x 6.1 cm (84.5ml) Multiparametric MR evaluation: Central gland/transition zone: Heterogeneous appearance of the central gland is consistent with benign prostatic hyperplasia. 2.2 cm right inferior central gland circumscribed nonencapsulated homogeneous hypointense T2 lesion without diffusion restriction (PIRAD 2). Peripheral zone: Thin rim with heterogeneous hypointense T2 signal along the left medial body and apex without discrete lesion. No focal increased diffusion restriction. Mild linear decreased ADC signal along the left medial mid body. Mild relative hyperenhancement along the medial left peripheral zone. (PIRAD 2) Overall PI-RADS v2 score = 2 Capsular margin and neurovascular bundle: Not involved Seminal vesicles: Not involved. Lymph nodes: No lymphadenopathy in the field of view. Bones: No suspicious lesions in the field of view. Bilateral fat-containing inguinal hernias without inflammation. MRI/Pelvis W/WO Contrast IMPRESSION: Findings consistent with benign prostatic hypertrophy. Nonspecific medial left peripheral zone heterogeneous T2 signal with linear decreased ADC and mild hyperenhancement without distinct mass.: Overall PI-RADS 2 by PI-RADS 2.1 criteria. PSA follow-up recommended with repeat MRI as indicated if tissue sampling not performed.. - No evidence of macroscopic extracapsular extension. - No evidence of seminal vesicle invasion. - No lymphadenopathy. - No suspicious bone lesions. Electronically Signed: Rohit Urbina MD at 2:13 EDT ,
[2023-03-25 12:05] LABS: CREATININE FINGERSTICK 0.9 mg/dL (0.70-1.30); EGFR FINGERSTICK > 60.0000 mL/min (>60)
== END | disposition home or self-care (01) ==
LOC: MRI 10:54
PROVIDERS: PCP Family Medicine; Visit Provider Urology
DX: R97.20 Elevated prostate specific antigen [PSA] (principal)
CPT/HCPCS: 72197; A9575

== ENCOUNTER 2023-09-21 09:27 | Outpatient (CLI) | payer MEDICARE, OTHER, SELFPAY ==
[2023-09-21 12:40] LABS: Absolute Lymphocyte Count 1.76 X10^3/uL (0.83-4.51); Absolute Neutrophil Count 2.6 X10^3/uL (2.0-7.7); Basophil# 0.06 X10^3/uL; Basophil% 1.2 % (0-1); Eosinophil# 0.18 X10^3/uL; Eosinophils% 3.5 % (0-5); Hematocrit 47.7 % (40-54); Hemoglobin 16.3 g/dL (13.0-16.5); Lymphocyte # 1.76 X10^3/ul (0.83-4.51); Lymphocyte % 34.4 % (19-41); Mean Corp Hgb Conc 34.2 g/dL (32-36); Mean Corpuscular Hgb 29.7 pg (27.0-32.0); Mean Platelet Vol. 9.1 fl (6.2-12.0); Monocyte# 0.47 X10^3/uL; Monocyte% 9.2 % (0-10); NRBC Flagged by Analyzer 0 % (0-5); Neutrophil # 2.63 X10^3/uL (2.7-7.7); Neutrophil % 51.3 % (47-70); Platelet Count 214 K/mm3 (150-450); RBC Distribution Width CV 12.4 % (11.6-14.6); RBC Distribution Width SD 39.5 fl (35.1-43.9); Red Blood Count 5.48 M/mm3 (4.6-6.2); White Blood Count 5.1 K/mm3 (4.4-11.0)
[2023-09-21 12:57] LABS: Vitamin D,25 Hydroxy 38.6 ng/mL
[2023-09-21 13:20] LABS: ALB/GLOB Ratio 1.2 RATIO (0.9-2.4); AST(SGOT) 37 U/L (15-37); Alanine Aminotransfer ALT/SGPT 55 U/L (16-61); Albumin, Serum 3.8 g/dL (3.2-5.0); Alkaline Phosphatase 100 U/L (45-117); Anion Gap 6 (5-15); BUN 18 mg/dL (7-18); BUN/Creat Ratio 14.9 RATIO (10-20); Calcium,Total 9.2 mg/dL (8.5-10.1); Chloride 108 mmol/L (98-107); Cholesterol 172 mg/dL (200); Creatinine, Serum 1.21 mg/dL (0.70-1.30); EST Glomerular Filtration Rate 63 mL/min (>60); Est Glom Filt Rate - Afr Amer 76 mL/min (>60); Globulin 3.3 g/dL (2.2-4.2); Glucose 106 mg/dL (74-106); High Density Lipoprotein 54 mg/dL; PSA,Total- Diagnostic 9.13 ng/mL (0.0-4.0); Potassium 4.2 mmol/L (3.5-5.1); Protein, Total 7.1 g/dL (6.4-8.2); Sodium Level 139 mmol/L (136-145); Triglycerides 133 mg/dL; Very Low Density Lipoprotein 27 mg/dL (5-40)
[2023-09-21 13:59] LABS: Hemoglobin A1c 5.6 % (3.8-5.6)
[2023-09-22 13:08] LABS: PSA, Free 1.93 ng/mL; PSA, Free % 22.4 % (.)
== END 2023-09-21 23:59 | disposition home or self-care (01) ==
LOC: MTLAB 09:28
PROVIDERS: PCP Family Medicine; Referring Provider Family Medicine; Visit Provider Family Medicine
DX: I12.9 Hypertensive chronic kidney disease with stage 1 through stage 4 chronic kidney disease, or unspecified chronic kidney disease (principal); I48.91 Unspecified atrial fibrillation; E78.5 Hyperlipidemia, unspecified; R73.03 Prediabetes; N18.2 Chronic kidney disease, stage 2 (mild); R97.20 Elevated prostate specific antigen [PSA]; E55.9 Vitamin D deficiency, unspecified
CPT/HCPCS: 36415; 80053; 80061; 82306; 83036; 84153; 84154; 85025

== ENCOUNTER → 2024-03-27 | Outpatient (CLI) | payer MEDICARE, OTHER, SELFPAY ==
[2024-03-27 12:40] LABS: Absolute Lymphocyte Count 1.96 X10^3/uL (0.83-4.51); Absolute Neutrophil Count 3.2 X10^3/uL (2.0-7.7); Basophil# 0.08 X10^3/uL; Basophil% 1.3 % (0-1); Eosinophil# 0.18 X10^3/uL; Hematocrit 48.4 % (40-54); Hemoglobin 16.3 g/dL (13.0-16.5); Lymphocyte # 1.96 X10^3/ul (0.83-4.51); Lymphocyte % 32.4 % (19-41); Mean Corp Hgb Conc 33.7 g/dL (32-36); Mean Corpuscular Hgb 29.4 pg (27.0-32.0); Mean Corpuscular Volume 87.2 fL (80-94); Mean Platelet Vol. 9.2 fl (6.2-12.0); Monocyte# 0.59 X10^3/uL; Monocyte% 9.8 % (0-10); NRBC Flagged by Analyzer 0 % (0-5); Neutrophil # 3.23 X10^3/uL (2.7-7.7); Neutrophil % 53.3 % (47-70); Platelet Count 236 K/mm3 (150-450); RBC Distribution Width CV 12.2 % (11.6-14.6); RBC Distribution Width SD 38.9 fl (35.1-43.9); Red Blood Count 5.55 M/mm3 (4.6-6.2); White Blood Count 6.1 K/mm3 (4.4-11.0)
[2024-03-27 12:59] LABS: ALB/GLOB Ratio 1.2 RATIO (0.9-2.4); AST(SGOT) 26 U/L (15-37); Alanine Aminotransfer ALT/SGPT 34 U/L (16-61); Alkaline Phosphatase 96 U/L (45-117); Anion Gap 7 (5-15); BUN 15 mg/dL (7-18); BUN/Creat Ratio 12.4 RATIO (10-20); Calcium,Total 9.3 mg/dL (8.5-10.1); Chloride 107 mmol/L (98-107); Creatinine, Serum 1.21 mg/dL (0.70-1.30); EST Glomerular Filtration Rate 63 mL/min (>60); Est Glom Filt Rate - Afr Amer 76 mL/min (>60); Globulin 3.3 g/dL (2.2-4.2); Glucose 116 mg/dL (74-106); PSA,Total- Diagnostic 8.54 ng/mL (0.0-4.0); Potassium 4.2 mmol/L (3.5-5.1); Protein, Total 7.3 g/dL (6.4-8.2); Sodium Level 139 mmol/L (136-145)
[2024-03-27 13:05] LABS: Microalbumin:Creatinine Ratio 7.1 mg/g CRE (<30 mg/g CRE)
[2024-03-27 13:55] LABS: Hemoglobin A1c 5.7 % (3.8-5.6)
== END | disposition home or self-care (01) ==
LOC: MFPLAB 10:08
PROVIDERS: PCP Family Medicine; Visit Provider Family Medicine
DX: L40.9 Psoriasis, unspecified (principal); R73.03 Prediabetes; R97.20 Elevated prostate specific antigen [PSA]; I10 Essential (primary) hypertension
CPT/HCPCS: 36415; 80053; 82043; 82570; 83036; 84153; 85025

== ENCOUNTER → 2024-09-07 | Outpatient (CLI) | payer MEDICARE, OTHER, SELFPAY ==
[2024-09-07 15:27] LABS: Hematocrit 45.8 % (40-54); Mean Corp Hgb Conc 34.9 g/dL (32-36); Mean Corpuscular Hgb 29.8 pg (27.0-32.0); Mean Corpuscular Volume 85.3 fL (80-94); Mean Platelet Vol. 9.8 fl (6.2-12.0); Platelet Count 195 K/mm3 (150-450); RBC Distribution Width CV 12.2 % (11.6-14.6); RBC Distribution Width SD 37.6 fl (35.1-43.9); Red Blood Count 5.37 M/mm3 (4.6-6.2); White Blood Count 6.9 K/mm3 (4.4-11.0)
[2024-09-07 15:58] LABS: Microalbumin,Random Urine < 12.0 mg/L (NO RANGE EST.); Microalbumin:Creatinine Ratio UNABLE TO CALCULATE mg/g CRE
[2024-09-07 16:09] LABS: ALB/GLOB Ratio 1.6 RATIO (0.9-2.4); AST(SGOT) 26 U/L (<=37); Alanine Aminotransfer ALT/SGPT 23 U/L (<=46); Albumin, Serum 4.4 g/dL (3.4-4.8); Alkaline Phosphatase 93 U/L (40-129); Anion Gap 12 (5-15); BUN 14 mg/dL (4-19); BUN/Creat Ratio 12.9 RATIO (10-20); Calcium,Total 9.7 mg/dL (7.6-11.0); Carbon Dioxide 23.6 mmol/L (21.0-32.0); Chloride 103 mmol/L (98-108); EST Glomerular Filtration Rate 71 (>60); Globulin 2.7 g/dL (2.2-4.2); Glucose 107 mg/dL (70-99); Potassium 4.4 mmol/L (3.3-5.1); Protein, Total 7.1 g/dL (5.9-8.4); Sodium Level 139 mmol/L (133-145); Total Bilirubin 0.81 mg/dL (0.00-1.30)
[2024-09-09 12:08] LABS: PSA, Free 2.28 ng/mL; PSA, Free % 21.9 % (.)
== END | disposition home or self-care (01) ==
LOC: MTLAB 11:49
PROVIDERS: PCP Family Medicine; Referring Provider Family Medicine; Visit Provider Family Medicine
DX: I48.91 Unspecified atrial fibrillation (principal); R97.20 Elevated prostate specific antigen [PSA]; N40.1 Benign prostatic hyperplasia with lower urinary tract symptoms
CPT/HCPCS: 80053; 82043; 82570; 84153; 84154; 85027

== ENCOUNTER 2024-11-21 06:20 | Day surgery (SDC) | payer MEDICARE, OTHER, SELFPAY ==
--- NOTE | 2024-11-16 19:58 | PAT.ANESEVAL ---
Pre-Assessment Diagnosis/Proposed Procedure Planned Operative Procedure(s): CSCOPE Anesthesia History Anesthesia History - laminator printed circuit boards: Anesthesia History - laminator printed circuit boards Hx Hospitalization No 11/16/24 11:07 Any Problems With Anesthesia [ No 05/14/22 11:19 1 (Initial Baseline)] Any Problems With Anesthesia No 11/16/24 11:07 Cholinesterase deficiency No 11/16/24 11:07 You/Your Family Experience No 11/16/24 11:07 fever (hyperthermia) with Relationship Recent Exposure to Contagious Disease Does patient have nerve No 11/16/24 11:07 stimulator Patient instructed to have device shut off --Does patient have Pacemaker or ICD? When Was Last Pacemaker Check QUESTION #4 FULL TEXT: You/Your Family Experience fever (hyperthermia) with Anesthesia Last Oral Intake Last Oral intake: Last Oral Intake NPO since Meds taken in AM with sips of water? Meds patient instructed to take am of surgery PONV PONV - laminator printed circuit boards: PONV - laminator printed circuit boards Female No 11/16/24 11:07 HX of Motion Sickness No 11/16/24 11:07 HX of N/V After Surgery No 11/16/24 11:07 Non-Smoker Yes 11/16/24 11:07 Duration of Surgery greater No 11/16/24 11:07 than 60 minutes Number of Risk Factors 1 11/16/24 11:07 PONV Score Low Risk 11/16/24 11:07 Height & Weight Height & Weight: Anesthesia: Height & Weight Height 5 ft 9 in 11/14/24 10:18 Respiratory Assessment Respiratory Assessment - laminator printed circuit boards: Respiratory Tract Infection Hx - laminator printed circuit boards Hx Respiratory Tract Infection No 11/16/24 11:07 STOP Sleep Apnea STOP Sleep Apnea - laminator printed circuit boards: STOP Sleep Apnea - laminator printed circuit boards Hx Hypertension Yes: CONTROLLED WITH MED 11/16/24 11:07 Hx Sleep Apnea No 11/16/24 11:07 CPAP BIPAP Do you snore loudly (louder No 11/16/24 11:07 than talking or can be heard Do you often feel tired/ No 11/16/24 11:07 fatigued/ sleepy during daytime? Has anyone observed you stop No 11/16/24 11:07 breathing during sleep? STOP Results Negative 11/16/24 11:07 QUESTION #5 FULL TEXT : Do you snore loudly (louder than talking or can be heard through closed doors)? 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 Specify any problems Hx of Preganancy in last 3 N/A 11/16/24 11:07 Months Nurse Filling Out Transfusion NBUCHER 11/16/24 11:07 & Questions: Date: 11/16/24 11/16/24 11:07 Time: 11:07 11/16/24 11:07 Patient unable to answer at this time (ie. 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 current use of antiarrhythmic medical therapy Hyperlipidemia Essential hypertension Atrial flutter with rapid ventricular response BPH (benign prostatic hyperplasia) Home Medications ?Medication ?Instructions ?Recorded ?Last Taken ?Type biotin 2,500 mcg capsule 10,000 mcg PO DAILY 12/03/14 09/16/21 History cyanocobalamin (vitamin B-12) 1,000 mcg sublingual DAILY 12/03/14 09/16/21 History 1,000 mcg sublingual tablet multivitamin with folic acid 400 1 tab PO DAILY 12/03/14 09/16/21 History mcg tablet (Thera) ezetimibe 10 mg tablet 10 mg PO DAILY 09/16/21 09/16/21 History lisinopril 20 mg tablet 20 mg PO DAILY 09/16/21 09/16/21 History tamsulosin 0.4 mg capsule 0.4 mg PO QHS 09/16/21 09/15/21 History hydrochlorothiazide 12.5 mg tablet 12.5 mg PO DAILY 10/08/21 Unknown History apixaban 5 mg tablet (Eliquis) See Rx Instructions .Route 06/20/24 Unknown Rx .COMPLEX #180 tabs diltiazem HCl 240 mg See Rx Instructions .Route 06/20/24 Unknown Rx capsule,extended release 24 hr .COMPLEX #90 caps flecainide 100 mg tablet 100 mg PO Q12H #180 TABLETS 09/14/24 Unknown Rx Allergy/AdvReac Type Severity Reaction Status Date / Time No Known Allergies Allergy Verified 11/16/24 11:04 Family History Mother Heart disease Myocardial infarction Father Cancer Metastatic cancer, unclear specific primary but family notes bone involvement. Surgical History (Updated 11/16/24 @ 11:11 by Mary Small) History of colonoscopy No history of previous surgery Social History household members: spouse Smoking Status: Never smoker alcohol intake: current alcohol intake frequency: a few times a week Alcohol type: wine substance use type: does not use caffeine: Yes Type: tea Number of servings: 1 Audit: Pertinent Findings Pertinent Findings EKG Perinent findings: 03/28/2024. Sinus rhythm. Nonspecific QRS widening. Stress test pertinent findings: September 17, 2021. EF 76%. No ischemia. No infarct. Echo (EF%) pertinent findings: September 16, 2021. EF 65%. No aortic stenosis noted. Consult pertinent findings: 03/28/2024. Shaye ELMORE. 1. Paroxysmal atrial fibrillation?chronic-no recurrence of A-fib since starting flecainide. To continue his apixaban and diltiazem. 2. Hypertension?[id number]. Recommendation Anesthesia Recommendation Anesthesia recommendation: OPTIMIZED for anesthesia
[2024-11-21] VITALS (7 sets, daily range): BP systolic 104–140; BP diastolic 60–80; PULSE 55–92; RESP 16–18; TEMP 36.1–36.4; O2SAT 92–95; BMI 27.3
--- OUTSIDE RECORDS SUMMARY | 2024-11-21 06:23 | XMS RPT_ITS | CCD ---
Author Organization [facility] Care Team Providers Care Ore Tester Name Role Phone Dr. Fabricio Tomas Primary Care Provider Dr. Abdi Hutson Attending Provider Dr. Ortiz Alex Emergency Provider Dr. Stephanie Broderick Admit Provider Dr. Abdi Hutson Other Provider Dr. Fabricio Akers Other Provider Rubens BOURNE, SOFTWARE QUALITY MANAGER-C Zhane Attending Provider Dr. Fabricio Tomas Primary Care Provider [phone] Fabricio Tomas Referring Provider Magaly SOFTWARE QUALITY MANAGER, SOFTWARE QUALITY MANAGER-C Alfredo Sheriff Attending Provider NONA Palacios Attending Provider Dr. Fabricio Tomas Primary Care Provider Dr. Fabricio Tomas Referring Provider NONA Palacios Attending Provider Dr. Fabricio Tomas Primary Care Provider Dr. Fabricio Tomas Referring Provider NONA Palacios Attending Provider Dr. Fabricio Tomas MD Primary Care Provider Dr. Fabricio Tomas MD Attending Provider [phone] Fabricio Tomas MD Referring Provider [phone] Dakota GARCÍA, Dr. Dejuan Bolaños Other Provider Destiny GARCÍA, Dr. Mendez Attending Provider Fabricio Tomas Primary Care Unavailable Fabricio Tomas Attending Unavailable Fabricio Tomas Referring Unavailable Fabricio Tomas Primary Care Unavailable Dejuan Duncan Unavailable Fabricio Tomas Attending Unavailable Fabricio Tomas Primary Care Unavailable Andrea Dixon Attending Unavailable Fabricio Tomas Referring Unavailable Fabricio Tomas Primary Care Unavailable Andrea Dixon Attending Unavailable Fabricio Tomas Referring Unavailable Fabricio Tomas Referring Unavailable Arti CASTELLANO, Julita Puckett Attending Unavail able Fabricio Tomas Primary Care Unavailable Medications Current Medications Medication Drug Class(es) Dates Sig (Normalized) Sig (Original) apixaban 5 mg oral tablet (20 sources) Factor Xa Inhibitor Start: 09-17-2021 End: 06-20-2024 Apixaban (Eliquis) 5 mg tablet Active 0 .ROUTE .COMPLEX 180 June 20, 2024 12:47pm TAKE 1 TABLET TWICE A DAY biotin 2.5 mg oral capsule (9 sources) Start: 12-03-2014 take 5000 ug by mouth once daily Biotin Active 5000 MCG PO DAILY December 03, 2014 8:09am Start: 12-03-2014 take 4 capsules by m outh once daily Biotin 2,500 MCG capsule Active 93021 ug PO DAILY December 03, 2014 12:00am Start: 12-03-2014 take 01792 ug by mouth once da danielle Biotin Active 36082 MCG PO DAILY December 03, 2014 12:00am cholecalciferol 0.025 mg oral tablet (1 source) Vitamin D Start: 12-03-2014 take 1 tablet by mouth once daily Cholecalciferol (Vitamin D3) (Vitamin D) 1,000 UNIT tablet Active 1000 UNIT PO DAILY December 03, 2014 8:09am 24 hr dilTIAZem hydrochloride 240 mg extended release oral capsule (20 sources) Calcium Channel Lizzie Start: 12-16-2022 take 2 capsules by mouth every twelve hours as needed Diltiazem Hcl 60 mg capsule,extended release 12 hr Active 30 mg PO ONCE as needed December 16, 2022 12:00am Diltiazem hcl 30 mg prn Start: 12-16-2022 take 30 mg by mouth once as needed Diltiazem Hcl Active 30 MG PO ONCE December 16, 2022 12:00am Diltiazem hcl 30 mg prn Start: 09-17-2021 End: 06-20-2024 Diltiazem Hcl 240 mg capsule,extended release 24hr Active 0 .ROUTE .COMPLEX 90 June 20, 2024 12:47pm TAKE 1 CAPSULE DAILY Start: 09-16-2021 End: 09-17-2021 take 1 capsule by mouth once daily, then take 1 capsule by mouth every twenty-four hours Diltiazem Hcl (Cartia Xt) 120 mg Capsule,Extended Release 24hr Discontinued 120 mg PO DAILY September 16, 2021 12:00am September 17, 2021 1:02pm Start: 12-03-2014 take 1 capsule by mo [facility] once daily Diltiazem Hcl (Tiazac) 120 MG Capsule.Er Active 120 MG PO DAILY December 03, 2014 8:09am ezetimibe 10 mg oral tablet (8 sources) Dietary Cholesterol Absorption Inhibitor Start: 09-16-2021 take 1 tablet by mouth once daily Ezetimibe 10 mg tablet Active 10 mg PO DAILY September 16, 2021 12:00am flecainide acetate 100 mg oral tablet (11 sources) Antiarrhythmic Start: 12-16-2022 End: 09-14-2024 take 1 tablet by mouth every twelve hours Flecainide 100 mg tablet Active 100 mg PO Q12H 180 September 14, 2024 5:36pm hydroCHLOROthiazide 12.5 mg oral tablet (6 sources) Thiazide Diuretic Start: 10-08-2021 take 1 tablet by mouth once daily Hydrochlorothiazide 12.5 mg tablet Active 12.5 mg PO DAILY October 08, 2021 12:00am hydroCHLOROthiazide 12.5 mg / lisinopril 20 mg oral tablet (1 source) Thiazide Diuretic, Angiotensin Converting Enzyme Inhibitor Start: 12-03-2014 take 1 tablet by mouth once daily Lisinopril/Hydrochloro thiazide (Zestoretic 20/12.5 Tablet) 1 TABLET tablet Active 1 TABLET PO DAILY December 03, 2014 8:09am lisinopril 20 mg oral tablet (8 sources) Angiotensin Converting Enzyme Inhibitor Start: 09-16-2021 take 1 tablet by mouth once daily Lisinopril 20 mg tablet Active 20 mg PO DAILY September 16, 2021 12:00am magnesium oxide 400 mg oral tablet (1 source) Start: 12-03-2014 take 400 mg by mouth once daily Magnesium Oxide Active 400 MG PO DAILY December 03, 2014 8:09am Multivitamin With Folic Acid (Thera) 1 TABLET tablet (9 sources) Start: 12-03-2014 take 1 tablet by mouth once daily Multivitamin With Folic Acid (Thera) 1 TABLET tablet Active 1 TABLET PO DAILY December 03, 2014 8:09am Start: 12-03-2014 take 1 tablet by markie th once daily Multivitamin With Folic Acid (Thera) 1 TABLET tablet Active 1 {tbl} PO DAILY December 03, 2014 12:00am Start: 12-03-2014 take 1 tablet by markie th once daily Multivitamin With Folic Acid (Thera) 1 TABLET tablet Active 1 TABLET PO DAILY December 03, 2014 12:00am Start: 12-03-2014 take 1 tablet by markie th once daily Multivitamin With Folic Acid (Thera) 1 TABLET tablet Active 1 TABLET PO DAILY December 02, 2014 11:00pm [place] 9-Zaf-Yuq-Fish Oil (Fish Oil) 500 MG Capsule. (1 source) Start: 12-03-2014 [place] 2-Mrm-Ypf-Fish Oil (Fish Oil) 500 MG Capsule.Dr Active 1000 MG PO DAILY December 03, 2014 8:09am pravastatin sodium 40 mg oral tablet (1 source) HMG-CoA Reductase Inhibitor Start: 12-03-2014 take 40 mg by mouth once daily Pravastatin Active 40 MG PO DAILY December 03, 2014 8:09am tamsulosin hydrochloride 0.4 mg oral capsule (8 sources) alpha-Adrenergi c Lizzie Start: 09-16-2021 take 1 capsule by mouth at bedtime Tamsulosin 0.4 mg capsule Active 0.4 mg PO AT BEDTIME September 16, 2021 12:00am vitamin b12 1 mg sublingual tablet (9 sources) Vitamin B12 Start: 12-03-2014 take 1 tablet under the tongue once daily Cyanocobalamin (Vitamin B-12) 1,000 MCG tablet, sublingual Active 1000 ug SL DAILY December 03, 2014 12:00am Completed/Discontinued Medications Medication Drug Class(es) Dates Sig (Normalized) Sig (Original) aspirin 81 mg chewable tablet (9 sources) Platelet Aggregation Inhibitor, Nonsteroidal Anti-inflammatory Drug Start: 12-03-2014 End: 09-17-2021 take 1 tablet by mouth once daily Aspirin 81 MG tablet,chewable Discontinued 81 mg PO DAILY@0800 December 03, 2014 12:00am September 17, 2021 1:02pm Problems Active Problems Problem Classification Problem Date Documented Da te Episodic/Chronic Cardiac dysrhythmias (20 sources) Atrial flutter; Translations: [Unspecified atrial flutter] Onset: 09-13-2024 Chronic Comment on above: Paroxysmal Disorders of lipid metabolism (19 sources) Hyperlipidemia; Translations: [Hyperlipidemia, unspecified] Chronic Essential hypertension (14 sources) Hypertensive disorder; Translations: [Essential (primary) hypertension] Chronic Other aftercare (1 source) Long-term current use of drug therapy; Translations: [Other intermediate (current) drug therapy] 03-28-2024 Episodic Other gastrointestinal disorders (2 sources) Stool DNA-based colorectal cancer screening positive; Translations: [Other fecal abnormalities] 11-14-2024 Episodic Other gastrointestinal disorders (1 source) Other fecal abnormalities; Translations: [Other fecal abnormalities] Onset: 11-14-2024 Episodic Other inflammatory condition of skin (1 source) Psoriasis, unspecified; Translations: [Psoriasis, unspecified] Onset: 04-17-2024 Chronic Unclassified (10 sources) Atrial fibrillation and flutter ; Translations: [Atrial fibrillation/flutte r] Past or Other Problems Problem Classification Problem Date Documented Da te Episodic/Chronic Other aftercare (1 source) Other intermediate (current) drug therapy; Translations: [Other intermediate (current) drug therapy] Onset: 03-28-2024 Episodic Results Test Name Value Interpretation Reference Range Facility MR/PATDawna 11[facility]16[facility]2024 [facility] [address] [place] [address] PAT - Anesthesia 11/16/241957 MR#: [id number] Acct: [id number] Name: CHELY HENDERSON MIHIR Rep #: [id number] : 1950 74 From: Charles Strong MD PCP: Dr. 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 When Was Last Pacemaker Check QUESTION #4 FULL TEXT: You/Your Family Experience fever (hyperthermia) with Anesthesia Last Oral Intake Last Oral intake: Last Oral Intake NPO since Meds taken in AM with sips of water? Meds patient instructed to take am of surgery PONV PONV - marketing communications manager: PONV - marketing communications manager Female No 11/16/24 11:07 HX of Motion Sickness No 11/16/24 11:07 HX of N/V After Surgery No 11/16/24 11:07 Non-Smoker Yes 11/16/24 11:07 Duration of Surgery greater No 11/16/24 11:07 than 60 minutes Number of Risk Factors 1 11/16/24 11:07 PONV Score Low Risk 11/16/24 11:07 Height Weight Height Weight: Anesthesia: Height Weight Height 5 ft 9 in 11/14/24 10:18 Respiratory Assessment Respiratory Assessment - marketing communications manager: Respiratory Tract Infection Hx - marketing communications manager Hx Respiratory Tract Infection No 11/16/24 11:07 STOP Sleep Apnea STOP Sleep Apnea - marketing communications manager: STOP Sleep Apnea - marketing communications manager Hx Hypertension Yes: CONTROLLED WITH MED 11/16/24 11:07 Hx Sleep Apnea No 11/16/24 11:07 CPAP BIPAP Do you snore loudly (louder No 11/16/24 11:07 than talking or can be heard Do you often feel tired/ No 11/16/24 11:07 fatigued/ sleepy during daytime? Has anyone observed you stop No 11/16/24 11:07 breathing during sleep? STOP Results Negative 11/16/24 11:07 QUESTION #5 FULL TEXT : Do you snore loudly (louder than talking or can be heard through closed doors)? 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 Specify any problems Hx of Preganancy in last 3 N/A 11/16/24 11:07 Months Nurse Filling Out Transfusion NBUCHER 11/16/24 11:07 Questions: Date: 11/16/24 11/16/24 11:07 Time: 11:07 11/16/24 11:07 Patient unable to answer at this time (ie. confused, unrespo /Reproduction History /Reproductive History - marketing communications manager: /Reproductive Hx- marketing communications manager Hx Now No 11/16/24 11:07 Gestational Age (in weeks): EDC: Hx Hx Para Hx Section SAB No 11/16/24 11:07 PFS Medical History (Updated 11/16/24 @ 11:11 by Mary Small) Wears glasses Prostate disease High cholesterol Non-smoker History of atrial fibrillation History of echocardiogram History of stress test Hypertension Cardiology follow-up encounter Positive colorectal cancer screening using Cologuard test correction current use of antiarrhythmic medical therapy Hyperlipidemia Essential hypertension Atrial flutter with rapid ventricular response BPH (benign prostatic hyperplasia) Home Medications ???Medication ???Instructions ???Recorded ???Last Taken ???Type biotin 2,500 mcg capsule 10,000 mcg PO DAILY 12/03/1409/16 History cyanocobalamin (vitamin B-12) 1,000 mcg sublingual DAILY 5 09/16/21 History 1,000 mcg sublingual tablet multivitamin with folic acid 400 1 tab PO DAILY 12/03/14 09/16/21 H istory mcg tablet (Thera) ezetimibe 10 mg tablet 10 mg (more content not included)... Normal [facility] Surgery Visit Reporton 11-14 Surgery Visit Report [facility] [address] [place] [address] OFFICE VISIT Date of Service: 11/14/24 MR#: [id number] Acct: [id number] Name: CHELY HENDERSON Rep #: [id number] : 1950 Provider: Dr. Andrea urrutia MD Age/Sex: 74/M Location: [facility] Status: Signed Intake Vital Signs 03/28/24 10:02 11/14/24 10:18 Height 5 ft 9 in 5 ft 9 in Weight: 200 lb 194 lb 6 oz BMI 29.5 28.7 BP 129/72 H 117/75 Blood Pressure Location Lt brachial Rt brachial Position Sitting Sitting Respiration 16 18 Pulse 78 89 Pulse Source NIBP Monitor Temp 97.2 F L Temp Source Temporal Pulse Oximetry (%) 98 Oxygen Delivery Method room air Intake Visit Reasons: POSITIVE COLOGUARD Chief Complaint: positive cologuard Is patient in pain?: No Allergies No Known Allergies Allergy (Verified 11/14/24 10:19) Medications ???Medication ???Instructions ???Recorded ???Confirmed ???Type biotin 2,500 mcg capsule 10,000 mcg PO DAILY 12/03/1411/14 History cyanocobalamin (vitamin B-12) 1,000 mcg sublingual DAILY 5 11/14/24 History 1,000 mcg sublingual tablet multivitamin with folic acid 400 1 tab PO DAILY 12/03/14 11/14/24 H istory mcg tablet (Thera) ezetimibe 10 mg tablet 10 mg PO DAILY 09/16/21 11/14/24 H istory lisinopril 20 mg tablet 20 mg PO DAILY 09/16/21 11/14/24 H istory tamsulosin 0.4 mg capsule 0.4 mg PO QHS 09/16/21 11/14/24 Hi story hydrochlorothiazide 12.5 mg tablet 12.5 mg PO DAILY 10/08/21 History diltiazem HCl 60 mg 30 mg PO ONCE PRN 12/16/22 5 History capsule,extended release 12 hr apixaban 5 mg tablet (Eliquis) See Rx Instructions .Route 5 11/14/24 Rx .COMPLEX #180 tabs diltiazem HCl 240 mg See Rx Instructions .Route 5 11/14/24 Rx capsule,extended release 24 hr .COMPLEX #90 caps flecainide 100 mg tablet 100 mg PO Q12H #180 TABLETS 11/14/24 Rx Have you fallen in the past year?: No PFSH Medical History (Updated 11/14/24 @ 10:18 by Khadijah Grullon LPN) Positive colorectal cancer screening using Cologuard test correction current use of antiarrhythmic medical therapy Hyperlipidemia Essential hypertension Atrial flutter with rapid ventricular response BPH (benign prostatic hyperplasia) Surgical History No history of previous surgery Family History Mother Heart disease Myocardial infarction Father Cancer Metastatic cancer, unclear specific primary but family notes bone involvement. Social History household members: spouse Smoking Status: Never smoker alcohol intake: current alcohol intake frequency: a few times a week Alcohol type: wine substance use type: does not use caffeine: Yes Type: tea Number of servings: 1 HPI HPI HPI: Patient is a 74-year-old male here for positive Cologuard. He denies abdominal pain or blood in the stool. His last colonoscopy was 10 years ago and was normal. ROS General General: No weight change, appetite, fatigue, colon cancer, breast cancer or weakness HEENT HEENT: No difficulty swallowing, eye injury, eye surgery, swollen glands or hoarseness Endo Endocrine: No thyroid disease, diabetes mellitus, thyroid cancer, Hair loss, heat intolerance or cold intolerance Skin Skin: No rash or changing moles Musc Musculoskeletal: No back problems, arthritis, rheumatoid arthritis, gout or joint pain Cardio Cardiovascular: Yes atrial fibrillation and high blood pressure; No murmur, pacemaker, heart disease, heart attack, heart stent, palpitations, shortness of breath with exertion or chest pain Psych Psychiatric: No depression, anxiety or hearing voices Resp Respiratory: No shortness of breath, No sleep apnea, No cough, No COPD, No asthma, No emphysema and No wheezing Gastro Gastrointestinal: No abdominal pain, No nausea or vomiting, No diarrhea, No constipation, No blood in stool, No acid reflux, Yes hemorrhoids, No ulcers, No gallbladder problem and No black,tarry stools Joey Hematologic: Yes blood thinners, No blood disorders, No bleeding, No anemia and No blood clots Neuro Neurologic: No numbness, No tingling and No weakness Exam Const General: cooperative Orientation: alert and oriented x3 HENMT Head: normal to inspection Neck Neck: normal visual inspection and full ROM Chest Chest palpation inspection: normal inspection of the chest Resp Effort Inspection: normal respiratory effort Auscultation: clear to auscultation bilaterally Cardio Rate: regular rate Rhythm: regular rhythm GI Inspection: non-distended Palpation: soft (more content not included)... Normal [facility] PSA Total+%Freeon 09-09-2024 PSA, FREE 2.28 ng/mL Normal N/A [facility] Comment on above: Result Comment: Eulalia MAYORGA methodology. Performed By: #### L 3110.0500, L502.0250 #### [facility] [address] [place], [address] PSA, FREE % 21.9 Normal . [facility] Comment on above: Result Comment: The table below lists the probability of prostate cancer for men with non-suspicious JERZY results and total PSA between 4 and 10 ng/mL, by patient age (Kalyaniona et al, MORENO 1998, 279:1542). % Free PSA 50-64 yr 65-75 yr 0.00-10.00% 56% 55% 10.01-15.00% 24% 35% 15.01-20.00% 17% 23% 20.01-25.00% 10% 20% >25.00% 5% 9% Please note: Shyam et al did not make specific recommendations regarding the use of percent free PSA for any other population of men. Performed at: [address] [id number] Aircraft Navigator: Thomas Sunshine PhD, Phone: [phone] Performed By: #### L 3110.0500, L502.0250 #### [facility] [address] [place], [address] PSA, TOTAL ULTR 10.400 ng/mL Abnormal 0.000-4.000 [facility] Comment on above: Result Comment: Eulalia carrasco ECLIA methodology. According to the [employer], Serum PSA should decrease and remain at undetectable levels after radical prostatectomy. The AUA defines biochemical recurrence as an initial PSA value 0.200 ng/mL or greater followed by a subsequent confirmatory PSA value 0.200 ng/mL or greater. Values obtained with different assay methods or kits cannot be used interchangeably. Results cannot be interpreted as absolute evidence of the presence or absence of malignant disease. Performed By: #### L 3110.0500, L502.0250 #### [facility] [address] [place], [address] Anion gap in Serum or Plasma Ordered By: Fabricio Tomas on 09-07-2024 Anion gap [Moles/Vol] 12 mmol/L - [facility] BUN/creatinine ratioOrdered By: Fabricio Tomas on 09-07-2024 Urea nitrogen/Creatinine [Mass ratio] 12.9 mg/mg - [facility] Bilirubin, totalOrdered By: Fabricio Tomas on 09-07-2024 Bilirubin [Mass/Vol] 0.81 mg/dL 0.00-1.30 [facility] CBC-Complete Blood Cnt No Di ffon 09-07-2024 Erythrocyte distribution width (RBC) [Ratio] 12.2 % Normal 11.6-14.6 [facility] Comment on above: Order Comment: Order Date: 09/07/24 Order Info: [id number] - CBC Performed By: #### L 100.0500, L501.9940, L500.4050 #### [facility] [address] [place], [address] Hematocrit (Bld) [Volume fraction] 45.8 % Normal 40-54 [facility] Comment on above: Order Comment: Order Date: 09/07/24 Order Info: [id number] - CBC Performed By: #### L 100.0500, L501.9940, L500.4050 #### [facility] [address] [place], [address] Hemoglobin (Bld) [Mass/Vol] 16.0 g/dL Normal 13.0-16.5 [facility] Comment on above: Order Comment: Order Date: 09/07/24 Order Info: [id number] - CBC Performed By: #### L 100.0500, L501.9940, L500.4050 #### [facility] [address] [place], [address] MCH (RBC) [Entitic mass] 29.8 pg Normal 27.0-32.0 [facility] Comment on above: Order Comment: Order Date: 09/07/24 Order Info: [id number] - CBC Performed By: #### L 100.0500, L501.9940, L500.4050 #### [facility] [address] [place], [address] MCHC (RBC) [Mass/Vol] 34.9 g/dL Normal 32-36 [facility] Comment on above: Order Comment: Order Date: 09/07/24 Order Info: [id number] - CBC Performed By: #### L 100.0500, L501.9940, L500.4050 #### [facility] [address] [place], [address] MCV (RBC) [Entitic vol] 85.3 fL Normal 80-94 [facility] Comment on above: Order Comment: Order Date: 09/07/24 Order Info: [id number] - CBC Performed By: #### L 100.0500, L501.9940, L500.4050 #### [facility] [address] [place], [address] Platelet mean volume (Bld) [Entitic vol] 9.8 fL Normal 6.2-12.0 [facility] Comment on above: Order Comment: Order Date: 09/07/24 Order Info: [id number] - CBC Performed By: #### L 100.0500, L501.9940, L500.4050 #### [facility] [address] [place], [address] Platelets (Bld) [#/Vol] 195 10*3/uL Normal 150-450 [facility] Comment on above: Order Comment: Order Date: 09/07/24 Order Info: [id number] - CBC Performed By: #### L 100.0500, L501.9940, L500.4050 #### [facility] [address] [place], [address] RBC (Bld) [#/Vol] 5.37 10*6/uL Normal 4.6-6.2 [facility] Comment on above: Order Comment: Order Date: 09/07/24 Order Info: [id number] - CBC Performed By: #### L 100.0500, L501.9940, L500.4050 #### [facility] [address] [place], [address] RDW SD 37.6 fl Normal 35.1-43.9 [facility] Comment on above: Order Comment: Order Date: 09/07/24 Order Info: [id number] - CBC Performed By: #### L 100.0500, L501.9940, L500.4050 #### [facility] [address] [place], [address] WBC (Bld) [#/Vol] 6.9 10*3/uL Normal 4.4-11.0 [facility] Comment on above: Order Comment: Order Date: 09/07/24 Order Info: [id number] - CBC Performed By: #### L 100.0500, L501.9940, L500.4050 #### [facility] [address] [place], [address] Carbon dioxide, total [Moles /volume] in Central venous bloodOrdered By: Fabricio Tomas on 09-07-2024 CO2 [Moles/Vol] 23.6 mmol/L 21.0-32.0 [facility] Chloride assayOrdered By: Len Tomas on 09-07-2024 Chloride [Moles/Vol] 103 mmol/L 98-108 [facility] Comprehensive Metabolic Prof ilon 09-07-2024 Albumin [Mass/Vol] 4.4 g/dL Normal 3.4-4.8 [facility] Comment on above: Order Comment: Order Date: 09/07/24 Order Info: [id number] - CMP Order Info: [id number] - PSAD GETS RESULTS FOR ALL PSA TESTSDRAriel TOMAS GETS RESULTS FOR ALL OTHER TESTS AND PSAD Performed By: #### L 100.0500, L501.9940, L500.4050 #### [facility] [address] [place], [address] Albumin/Globulin [Mass ratio] 1.6 {ratio} Normal 0.9-2.4 [facility] Comment on above: Order Comment: Order Date: 09/07/24 Order Info: [id number] - CMP Order Info: [id number] - PSAD GETS RESULTS FOR ALL PSA TESTSDRAriel TOMAS GETS RESULTS FOR ALL OTHER TESTS AND PSAD Performed By: #### L 100.0500, L501.9940, L500.4050 #### [facility] [address] [place], [address] ALK PHOS 93 U/L Normal 40-129 [facility] Comment on above: Order Comment: Order Date: 09/07/24 Order Info: 785-05 - CMP Order Info: 782-05 - PSAD GETS RESULTS FOR ALL PSA TESTSDRAriel TOMAS GETS RESULTS FOR ALL OTHER TESTS AND PSAD Performed By: #### L 100.0500, L501.9940, L500.4050 #### [facility] [address] [place], [address] ALT [Catalytic activity/Vol] 23 U/L Normal <=46 [facility] Comment on above: Order Comment: Order Date: 09/07/24 Order Info: 785-05 - CMP Order Info: 782-05 - PSAD GETS RESULTS FOR ALL PSA TESTSDR. TOMAS GETS RESULTS FOR ALL OTHER TESTS AND PSAD Performed By: #### L 100.0500, L501.9940, L500.4050 #### [facility] [address] [place], [address] AST [Catalytic activity/Vol] 26 U/L Normal <=37 [facility] Comment on above: Order Comment: Order Date: 09/07/24 Order Info: 0786 - CMP Order Info: 07 - PSAD GETS RESULTS FOR ALL PSA TESTSDRAriel TOMAS GETS RESULTS FOR ALL OTHER TESTS AND PSAD Performed By: #### L 100.0500, L501.9940, L500.4050 #### [facility] [address] [place], [address] Bilirubin [Mass/Vol] 0.81 mg/dL Normal 0.00-1.30 [facility] Comment on above: Order Comment: Order Date: 09/07/24 Order Info: 0786- - CMP Order Info: 0783 - PSAD GETS RESULTS FOR ALL PSA TESTSDRAriel TOMAS GETS RESULTS FOR ALL OTHER TESTS AND PSAD Performed By: #### L 100.0500, L501.9940, L500.4050 #### [facility] [address] [place], [address] BUN/CRE 12.9 RATIO Normal 10-20 [facility] Comment on above: Order Comment: Order Date: 09/07/24 Order Info: 0786-1 - CMP Order Info: 0783 - PSAD GETS RESULTS FOR ALL PSA TESTSDRAriel TOMAS GETS RESULTS FOR ALL OTHER TESTS AND PSAD Performed By: #### L 100.0500, L501.9940, L500.4050 #### [facility] [address] [place], [address] Calcium [Mass/Vol] 9.7 mg/dL Normal 7.6-11.0 [facility] Comment on above: Order Comment: Order Date: 09/07/24 Order Info: 785-05 - CMP Order Info: 782-05 - PSAD GETS RESULTS FOR ALL PSA TESTSDRAriel TOMAS GETS RESULTS FOR ALL OTHER TESTS AND PSAD Performed By: #### L 100.0500, L501.9940, L500.4050 #### [facility] [address] [place], [address] Chloride [Moles/Vol] 103 mmol/L Normal 98-108 [facility] Comment on above: Order Comment: Order Date: 09/07/24 Order Info: 785-05 - CMP Order Info: 782-05 - PSAD GETS RESULTS FOR ALL PSA TESTSDRAriel TOMAS GETS RESULTS FOR ALL OTHER TESTS AND PSAD Performed By: #### L 100.0500, L501.9940, L500.4050 #### [facility] [address] [place], [address] CO2 [Moles/Vol] 23.6 mmol/L Normal 21.0-32.0 [facility] Comment on above: Order Comment: Order Date: 09/07/24 Order Info: 785-05 - CMP Order Info: 782-05 - PSAD GETS RESULTS FOR ALL PSA TESTSDRAriel TOMAS GETS RESULTS FOR ALL OTHER TESTS AND PSAD Performed By: #### L 100.0500, L501.9940, L500.4050 #### [facility] [address] [place], [address] Creatinine [Mass/Vol] 1.10 mg/dL Normal 0.70-1.20 [facility] Comment on above: Order Comment: Order Date: 09/07/24 Order Info: 785-05 - CMP Order Info: 782-05 - PSAD GETS RESULTS FOR ALL PSA TESTSDRAriel TOMAS GETS RESULTS FOR ALL OTHER TESTS AND PSAD Performed By: #### L 100.0500, L501.9940, L500.4050 #### [facility] [address] [place], [address] GAP 12 Normal 5-15 [facility] Comment on above: Order Comment: Order Date: 09/07/24 Order Info: 785-05 - CMP Order Info: 782-05 - PSAD GETS RESULTS FOR ALL PSA TESTSDRAriel TOMAS GETS RESULTS FOR ALL OTHER TESTS AND PSAD Performed By: #### L 100.0500, L501.9940, L500.4050 #### [facility] [address] [place], [address] GFR/1.73 sq M.predicted among non-blacks MDRD (S/P/Bld) [Vol rate/Area] 71 mL/min/{1.73_m2} Normal >60 [facility] Comment on above: Order Comment: Order Date: 09/07/24 Order Info: 785-05 - CMP Order Info: 782-05 - PSAD GETS RESULTS FOR ALL PSA TESTSDRAriel TOMAS GETS RESULTS FOR ALL OTHER TESTS AND PSAD Result Comment: mL/m in/1.73m2 CKD-EPI Creatinine Equation (2020) Performed By: #### L 100.0500, L501.9940, L500.4050 #### [facility] [address] [place], [address] Globulin (S) [Mass/Vol] 2.7 g/dL Normal 2.2-4.2 [facility] Comment on above: Order Comment: Order Date: 09/07/24 Order Info: 785-05 - CMP Order Info: 782-05 - PSAD GETS RESULTS FOR ALL PSA TESTSDRAriel TOMAS GETS RESULTS FOR ALL OTHER TESTS AND PSAD Performed By: #### L 100.0500, L501.9940, L500.4050 #### [facility] [address] [place], [address] Glucose [Mass/Vol] 107 mg/dL High 70-99 [facility] Comment on above: Order Comment: Order Date: 09/07/24 Order Info: 785-05 - CMP Order Info: 782-05 - PSAD GETS RESULTS FOR ALL PSA TESTSDRAriel TOMAS GETS RESULTS FOR ALL OTHER TESTS AND PSAD Performed By: #### L 100.0500, L501.9940, L500.4050 #### [facility] [address] [place], [address] Potassium [Moles/Vol] 4.4 mmol/L Normal 3.3-5.1 [facility] Comment on above: Order Comment: Order Date: 09/07/24 Order Info: 0786 - CMP Order Info: 0783 - PSAD GETS RESULTS FOR ALL PSA TESTSDRAriel TOMAS GETS RESULTS FOR ALL OTHER TESTS AND PSAD Performed By: #### L 100.0500, L501.9940, L500.4050 #### [facility] [address] [place], [address] Sodium [Moles/Vol] 139 mmol/L Normal 133-145 [facility] Comment on above: Order Comment: Order Date: 09/07/24 Order Info: 0786- - CMP Order Info: 0783 - PSAD GETS RESULTS FOR ALL PSA TESTSDRAriel TOMAS GETS RESULTS FOR ALL OTHER TESTS AND PSAD Performed By: #### L 100.0500, L501.9940, L500.4050 #### [facility] [address] [place], [address] T PROT 7.1 g/dL Normal 5.9-8.4 [facility] Comment on above: Order Comment: Order Date: 09/07/24 Order Info: 0786- - CMP Order Info: 0783- - PSAD GETS RESULTS FOR ALL PSA TESTSDRAriel TOMAS GETS RESULTS FOR ALL OTHER TESTS AND PSAD Performed By: #### L 100.0500, L501.9940, L500.4050 #### [facility] [address] [place], [address] Urea nitrogen [Mass/Vol] 14 mg/dL Normal 4-19 [facility] Comment on above: Order Comment: Order Date: 09/07/24 Order Info: 0786-1 - CMP Order Info: 0783-1 - PSAD GETS RESULTS FOR ALL PSA TESTSDR. TOMAS GETS RESULTS FOR ALL OTHER TESTS AND PSAD Performed By: #### L 100.0500, L501.9940, L500.4050 #### [facility] [address] [place], [address] Erythrocyte distribution wid th ratioOrdered By: Fabricio Tomas on 09-07-2024 Erythrocyte distribution width (RBC) [Ratio] 12.2 % 11.6-14.6 [facility] Erythrocyte distribution wid th standard deviationOrdered By: Fabricio Tomas on 09-07-2024 Erythrocyte distribution width (RBC) [Ratio] 37.6 fl 35.1-43.9 [facility] Glomerular filtration rate ( GFR) estimation/1.73 sq m using serum, plasma, or whole bOrdered By: Fabricio Tomas on 09-07-2024 GFR/1.73 sq M.predicted among non-blacks MDRD (S/P/Bld) [Vol rate/Area] 71 mL/min/{1.73_m2} >60 [facility] Comment on above: mL/min/1.73m2 CKD-EP I Creatinine Equation (2020) Hematocrit Auto (Bld) [Volum e fraction]Ordered By: Fabricio Tomas on 09-07-2024 Hematocrit (Bld) [Volume fraction] 45.8 % 40-54 [facility] Hemoglobin measurementOrdere d By: Fabricio Tomas on 09-07-2024 Hemoglobin (Bld) [Mass/Vol] 16.0 g/dL 13.0-16.5 [facility] - Chemistry and C hemistry - challengeOrdered By: Fabricio Tomas on 09-07-2024 AST [Catalytic activity/Vol] 26 U/L <38 [facility] MCV (mean corpuscular volume ) determinationOrdered By: Fabricio Tomas on 09-07-2024 MCV (RBC) [Entitic vol] 85.3 fL 80-94 [facility] Mean corpuscular hemoglobin (MCH) determinationOrdered By: Fabricio Tomas on 09-07-2024 MCH (RBC) [Entitic mass] 29.8 pg 27.0-32.0 [facility] Mean corpuscular hemoglobin concentration (MCHC) determinationOrdered By: Fabricio Tomas on 09-07-2024 MCHC (RBC) [Mass/Vol] 34.9 g/dL 32-36 [facility] Mean platelet volume determi nationOrdered By: Fabricio Tomas on 09-07-2024 Platelet mean volume (Bld) [Entitic vol] 9.8 fL 6.2-12.0 [facility] Microalb:Creat Ratio,Random URon 09-07-2024 Creatinine [Mass/Vol] 187.00 mg/dL Normal 39.00- 259.0 0 [facility] Comment on above: Order Comment: Order Date: 09/07/24 Order Info: 49917-5 - MIALB Performed By: #### L 3110.0500, L502.0250 #### [facility] [address] [place], [address] MALB:CREAT UNABLE TO CALCULATE Normal [facility] Comment on above: Order Comment: Order Date: 09/07/24 Order Info: 78790-5 - MIALB Performed By: #### L 3110.0500, L502.0250 #### [facility] [address] [place], [address] MICROALBUMIN,UR < 12.0 Normal NO RANGE EST. [facility] Comment on above: Order Comment: Order Date: 09/07/24 Order Info: 81441-5 - MIALB Performed By: #### L 3110.0500, L502.0250 #### [facility] [address] [place], [address] Microalbumin/creat ratio urO rdered By: Fabricio Tomas on 09-07-2024 Urine microalbumin/creatinin e ratio measurement UNABLE TO CALCULATE mg/g CRE [facility] PSA,Total- [employer] 08-22 PSA, DIAGNOSTIC 10.70 ng/mL High 0.00-4.00 [facility] Comment on above: Order Comment: Order Date: 09/07/24 Order Info: 0786-1 - CMP Order Info: 0783-1 - PSAD GETS RESULTS FOR ALL PSA TESTSDR. TOMAS GETS RESULTS FOR ALL OTHER TESTS AND PSAD Result Comment: This test was performed using the [employer] tPSA method. Measured values of a patient??sample can vary depending on the testing procedure used. PSA values determined on patient samples by different testing procedures cannot be used interchangeably. If there is a change in PSA assays while monitoring therapy, sequential testing should be performed to confirm baseline values. Performed By: #### L 100.0500, L501.9940, L500.4050 #### [facility] [address] [place], [place], [id number] Platelet countOrdered By: Len Tomas on 09-07-2024 Platelets (Bld) [#/Vol] 195 10*3/uL 150-450 [facility] Potassium measurement (mass/ volume)Ordered By: Fabricio Tomas on 09-07-2024 Potassium (Unsp spec) [Mass/Vol] 4.4 mmol/L 3.3-5.1 [facility] RBC Auto (Bld) [#/Vol]Ordere d By: Fabricio Tomas on 09-07-2024 RBC (Bld) [#/Vol] 5.37 10*6/uL 4.6-6.2 [facility] Random urine creatinine camryn urement (mass/volume)Ordered By: Fabricio Tomas on 09-07-2024 Creatinine Unsp time (U) [Mass/Vol] 187.00 mg/dL 39.00-259.0 0 [facility] Serum creatinine measurement (mass/volume)Ordered By: Fabricio Tomas on 09-07-2024 Creatinine [Mass/Vol] 1.10 mg/dL 0.70-1.20 [facility] Serum globulin measurementOr dered By: Fabricio Tomas on 09-07-2024 Globulin (S) [Mass/Vol] 2.7 g/dL 2.2-4.2 [facility] Serum glucose measurement (m ass/volume)Ordered By: Fabricio Tomas on 09-07-2024 Glucose [Mass/Vol] 107 mg/dL High 70-99 [facility] Serum or plasma alanine valera otransferase (ALT) measurementOrdered By: Fabricio Tomas on 09-07-2024 ALT [Catalytic activity/Vol] 23 U/L <47 [facility] Serum or plasma albumin camryn urement (mass/volume)Ordered By: Fabricio Tomas on 09-07-2024 Albumin [Mass/Vol] 4.4 g/dL 3.4-4.8 [facility] Serum or plasma albumin/glob ulin mass ratioOrdered By: Fabricio Tomas on 09-07-2024 Albumin/Globulin [Mass ratio] 1.6 {ratio} 0.9-2.4 [facility] Serum or plasma alkaline иван sphatase measurementOrdered By: Fabricio Tomas on 09-07-2024 ALP [Catalytic activity/Vol] 93 U/L 40-129 [facility] Serum or plasma calcium camryn urement (mass/volume)Ordered By: Fabricio Tomas on 09-07-2024 Calcium [Mass/Vol] 9.7 mg/dL 7.6-11.0 [facility] Serum or plasma free prostat e specific antigen (PSA)/total PSA mass ratioOrdered By: Fabricio Tomas on 09-07-2024 Free PSA/Total PSA [Mass fraction] 21.9 % . [facility] Comment on above: The table below list s the probability of prostate cancer formen with non-suspicious JERZY results and total PSA between4 and 10 ng/mL, by patient age (Shyam et al, MORENO 1998,279:1542). % Free PSA 50-64 yr 65-75 yr 0.00-10.00% 56% 55% 10.01-15.00% 24% 35% 15.01-20.00% 17% 23% 20.01-25.00% 10% 20% >25.00% 5% 9%Please note: Shyam et al did not make specific recommendations regarding the use of percent free PSA for any other population of men.Performed at: [facility] [id number] Director: Thomas Sunshine PhD, Phone: [phone] Serum or plasma urea nitroge n measurement (mass/volume)Ordered By: Fabricio Tomas on 09-07-2024 Urea nitrogen [Mass/Vol] 14 mg/dL 4-19 [facility] Sodium levelOrdered By: Fabricio Tomas on 09-07-2024 Sodium [Moles/Vol] 139 mmol/L 133-145 [facility] Total proteinOrdered By: Jesenia Tomas on 09-07-2024 Protein [Mass/Vol] 7.1 g/dL 5.9-8.4 [facility] Urine albumin measurement [facility] detection limit of 20 mg/L or less (mass/volume)Ordered By: Fabricio Tomas on 09-07-2024 Albumin DL <= 20 mg/L (U) [Mass/Vol] < 12.0 mg/L NO RANGE EST. [facility] White blood cell (WBC) count Ordered By: Fabricio Tomas on 09-07-2024 WBC (Bld) [#/Vol] 6.9 10*3/uL 4.4-11.0 [facility] 12 Lead EKG performed by [facility] on 03-28-2024 12 Lead EKG performed by [address] [address] 12 Lead EKG performed by [facility] 03/28/24 1013 MR#: [id number] Acct: [id number] Name: CHELY HENDERSON Rep #: [id number] : 1950 74 From: Julita Britt Attending Dr: NONA Bess Status: DEP AMB Ordering Dr: Julita Chi Date: 10/14 Location: [facility] Sex: M C Admitted: [facility]/12 Lead EKG performed by [facility] ECG Report Interpretation Sinus Rhythm -Nonspecific QRS widening. BORDERLINEElectronically signed on 04/06/2024 at 08:07 by Leonardo [employer] Version [id number] 04/06/24 0814 Date Julita CASTELLANO CC: Dr. Fabricio Tomas MD Date Dictated: 03/28/241012 Date Transcribed: 03/28/241012 Silver Chaser: CARMELA Signed Normal [facility] Cardiology Visit Reporton Cardiology Visit Report [facility] [address] [place] [address] OFFICE VISIT Date of Service: 03/28/24 MR#: [id number] Acct: [id number] Name: CHELY HENDERSON MIHIR Rep #: [id number] : 1950 Provider: NONA Shin Age/Sex: 74/M Location: [facility] Status: Signed HPI HPI History of Present Illness Details: Chely Henderosn is a 74-year-old male who presents to the office today for a cardiovascular outpatient follow-up. He was first seen in consultation in August 2021 for atrial flutter with RVR. Echocardiogram on 09/16/2021 showed ejection fraction of 65% and normal left and right atrium. Stress test on 09/17/2021 showed no obvious ECG changes and was negative for ischemia. He received IV amiodarone. He converted to normal sinus rhythm. His home Cardizem was increased and he was started on Eliquis therapy. He also has a history of hypertension, hyperlipidemia, and prediabetes. On May 14, 2022 patient was noted to be in atrial flutter with RVR with heart rates in the 150's. His blood pressure was on the low end. He did undergo a cardioversion while in the emergency room. At his OV in November of 2022 he had noted Afib that would occur at least once a month and would last several hours. He was started on Flecainide. He has not had any further recurrence of afib since starting on flecainide. From a cardiac standpoint, patient is doing well. He does not have any chest discomfort/heaviness/tight ness. His exercise tolerance is stable for his age. He does not have any worsening symptoms of shortness of breath. He denies any PND. He does not have any orthopnea. He does not have any symptoms of congestive heart failure. He does not have any lightheadedness or dizziness. He does not have any near-syncope or syncope. He does not have any lower extremity edema. He does not have any symptoms of claudication. 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 Accompanied by: Self Is patient in pain?: No Allergies No Known Allergies Allergy (Verified 03/28/24 10:03) Medications ???Medication ???Instructions ???Recorded ???Confirmed ???Type biotin 2,500 mcg capsule 10,000 mcg PO DAILY 12/03/14 03/28/24 History cyanocobalamin (vitamin B-12) 1,000 mcg sublingual DAILY 12/03/14 03/28/24 History 1,000 mcg sublingual tablet multivitamin with folic acid 400 1 tab PO DAILY 12/03/14 03/28/24 History mcg tablet (Thera) ezetimibe 10 mg tablet 10 mg PO DAILY 09/16/21 03/28/24 History lisinopril 20 mg tablet 20 mg PO DAILY 09/16/21 03/28/24 History tamsulosin 0.4 mg capsule 0.4 mg PO QHS 09/16/21 03/28/24 History hydrochlorothiazide 12.5 mg tablet 12.5 mg PO DAILY 10/08/21 03/28/24 History diltiazem HCl 60 mg 30 mg PO ONCE PRN 12/16/22 03/28/24 History capsule,extended release 12 hr apixaban 5 mg tablet (Eliquis) See Rx Instructions .Route 05/26/23 03/28/24 Rx .COMPLEX #180 tabs diltiazem HCl 240 mg See Rx Instructions .Route 05/26/23 03/28/24 Rx capsule,extended release 24 hr .COMPLEX #90 caps flecainide 100 mg tablet 100 mg PO Q12H #180 TABLETS 10/27/23 03/28/24 Rx Have you fallen in the past year?: No PFSH Medical History long term current use of antiarrhythmic medical therapy Hyperlipidemia Essential hypertension Atrial flutter with rapid ventricular response BPH (benign prostatic hyperplasia) Surgical History No history of previous surgery Family History Mother Heart disease Myocardial infarction Father Cancer Metastatic cancer, unclear specific primary but family notes bone involvement. Social History household members: spouse Smoking Status: Never smoker alcohol intake: current alcohol intake frequency: a few times a week Alcohol type: wine substance use type: does not use caffeine: Yes Type: tea Number of servings: 1 ROS Const Const: Negative for fatigue, weakness, headache(s), frequent falls, excessive sweating, weight gain or weight loss Eyes Eyes: Negative for blind spots, loss of peripheral vision, transient loss of vision, blurry vision, change in vision or double vision ENT ENT: Negative for headache(s), dizziness, tinnitus, Nosebleed/epistaxis or balance problems Cardio Chest Pain: No Palpitations: No Den (more content not included)... Normal [facility] CBC W/Diff, Automatedon 11-0 Absolute Lymph 1.96 X10 3/uL Normal 0.83-4.51 [facility] Comment on above: Performed By: #### L 500.4050, L501.9985, L501.9940, L100.0100, L502.0250 #### [facility] [address] [place], [address] Absolute Neut 3.2 X10 3/uL Normal 2.0-7.7 [facility] Comment on above: Performed By: #### L 500.4050, L501.9985, L501.9940, L100.0100, L502.0250 #### [facility] [address] [place], [address] Basophils/100 WBC (Bld) 1.3 % High 0-1 [facility] Comment on above: Performed By: #### L 500.4050, L501.9985, L501.9940, L100.0100, L502.0250 #### [facility] [address] [place], [address] Eosinophils/100 WBC (Bld) 3.0 % Normal 0-5 [facility] Comment on above: Performed By: #### L 500.4050, L501.9985, L501.9940, L100.0100, L502.0250 #### [facility] [address] [place], [address] Erythrocyte distribution width (RBC) [Ratio] 12.2 % Normal 11.6-14.6 [facility] Comment on above: Performed By: #### L 500.4050, L501.9985, L501.9940, L100.0100, L502.0250 #### [facility] [address] [place], [address] Hematocrit (Bld) [Volume fraction] 48.4 % Normal 40-54 [facility] Comment on above: Performed By: #### L 500.4050, L501.9985, L501.9940, L100.0100, L502.0250 #### [facility] [address] [place], [address] Hemoglobin (Bld) [Mass/Vol] 16.3 g/dL Normal 13.0-16.5 [facility] Comment on above: Performed By: #### L 500.4050, L501.9985, L501.9940, L100.0100, L502.0250 #### [facility] [address] [place], [address] IG% 0.200 Normal 0.0-0.9 [facility] Comment on above: Result Comment: IG% - Immature Granulocytes (promyelocytes, myelocytes and metamyelocytes) > 1% indicates that a LEFT SHIFT is Present. Performed By: #### L 500.4050, L501.9985, L501.9940, L100.0100, L502.0250 #### [facility] [address] [place], [address] Lymphocytes/100 WBC (Bld) 32.4 % Normal 19-41 [facility] Comment on above: Performed By: #### L 500.4050, L501.9985, L501.9940, L100.0100, L502.0250 #### [facility] [address] [place], [address] MCH (RBC) [Entitic mass] 29.4 pg Normal 27.0-32.0 [facility] Comment on above: Performed By: #### L 500.4050, L501.9985, L501.9940, L100.0100, L502.0250 #### [facility] [address] [place], [address] MCHC (RBC) [Mass/Vol] 33.7 g/dL Normal 32-36 [facility] Comment on above: Performed By: #### L 500.4050, L501.9985, L501.9940, L100.0100, L502.0250 #### [facility] [address] [place], [address] MCV (RBC) [Entitic vol] 87.2 fL Normal 80-94 [facility] Comment on above: Performed By: #### L 500.4050, L501.9985, L501.9940, L100.0100, L502.0250 #### [facility] [address] [place], [address] Monocytes/100 WBC (Bld) 9.8 % Normal 0-10 [facility] Comment on above: Performed By: #### L 500.4050, L501.9985, L501.9940, L100.0100, L502.0250 #### [facility] [address] [place], [address] Neutrophils/100 WBC (Bld) 53.3 % Normal 47-70 [facility] Comment on above: Performed By: #### L 500.4050, L501.9985, L501.9940, L100.0100, L502.0250 #### [facility] [address] [place], [address] Nucleated RBC (Bld) [#/Vol] 0 10*3/uL Normal 0-5 [facility] Comment on above: Performed By: #### L 500.4050, L501.9985, L501.9940, L100.0100, L502.0250 #### [facility] [address] [place], [address] Platelet mean volume (Bld) [Entitic vol] 9.2 fL Normal 6.2-12.0 [facility] Comment on above: Performed By: #### L 500.4050, L501.9985, L501.9940, L100.0100, L502.0250 #### [facility] [address] [place], [address] Platelets (Bld) [#/Vol] 236 10*3/uL Normal 150-450 [facility] Comment on above: Performed By: #### L 500.4050, L501.9985, L501.9940, L100.0100, L502.0250 #### [facility] [address] [place], [address] RBC (Bld) [#/Vol] 5.55 10*6/uL Normal 4.6-6.2 [facility] [facility] Comment on above: Performed By: #### L 500.4050, L501.9985, L501.9940, L100.0100, L502.0250 #### [facility] [address] [place], [address] RDW SD 38.9 fl Normal 35.1-43.9 [facility] Comment on above: Performed By: #### L 500.4050, L501.9985, L501.9940, L100.0100, L502.0250 #### [facility] [address] [place], [address] WBC (Bld) [#/Vol] 6.1 10*3/uL Normal 4.4-11.0 [facility] Comment on above: Performed By: #### L 500.4050, L501.9985, L501.9940, L100.0100, L502.0250 #### [facility] [address] [place], [address] Comprehensive Metabolic Prof ilon 03-27-2024 Albumin [Mass/Vol] 4.0 g/dL Normal 3.2-5.0 [facility] Comment on above: Performed By: #### L 500.4050, L501.9985, L501.9940, L100.0100, L502.0250 ####[facility] [address] [place], [address] Albumin/Globulin [Mass ratio] 1.2 {ratio} Normal 0.9-2.4 [facility] Comment on above: Performed By: #### L 500.4050, L501.9985, L501.9940, L100.0100, L502.0250 ####[facility] [address] [place], [address] ALK P 96 U/L Normal 45-117 [facility] Comment on above: Performed By: #### L 500.4050, L501.9985, L501.9940, L100.0100, L502.0250 ####[facility] [address] [place], [address] ALT [Catalytic activity/Vol] 34 U/L Normal 16-61 [facility] Comment on above: Performed By: #### L 500.4050, L501.9985, L501.9940, L100.0100, L502.0250 ####[facility] [address] [place], [address] AST [Catalytic activity/Vol] 26 U/L Normal 15-37 [facility] Comment on above: Performed By: #### L 500.4050, L501.9985, L501.9940, L100.0100, L502.0250 ####[facility] [address] [place], [address] Bilirubin [Mass/Vol] 0.70 mg/dL Normal 0.20-1.00 [facility] Comment on above: Result Comment: For patients on eltrombopag therapy, use of Dimension Langley TBIL is not recommended. Performed By: #### L 500.4050, L501.9985, L501.9940, L100.0100, L502.0250 ####[facility] [address] [place], [address] BUN/CRE 12.4 RATIO Normal 10-20 [facility] Comment on above: Performed By: #### L 500.4050, L501.9985, L501.9940, L100.0100, L502.0250 ####[facility] [address] [place], [address] CA,Total 9.3 mg/dL Normal 8.5-10.1 [facility] Comment on above: Performed By: #### L 500.4050, L501.9985, L501.9940, L100.0100, L502.0250 ####[facility] [address] [place], [address] Chloride [Moles/Vol] 107 mmol/L Normal 98-107 [facility] Comment on above: Performed By: #### L 500.4050, L501.9985, L501.9940, L100.0100, L502.0250 ####[facility] [address] [place], [address] CO2 [Moles/Vol] 25.0 mmol/L Normal 21.0-32.0 [facility] Comment on above: Performed By: #### L 500.4050, L501.9985, L501.9940, L100.0100, L502.0250 ####[facility] [address] [place], [address] Creatinine [Mass/Vol] 1.21 mg/dL Normal 0.70-1.30 [facility] Comment on above: Result Comment: The validity of the calculated GFR GFRAA in patients over 70 years has not been determined. Clinical correlation is essential. Performed By: #### L 500.4050, L501.9985, L501.9940, L100.0100, L502.0250 ####[facility] [address] [place], [address] EST GFR - AA 76 mL/min Normal >60 [facility] Comment on above: Result Comment: Afri can [place] GFR Calc Performed By: #### L 500.4050, L501.9985, L501.9940, L100.0100, L502.0250 ####[facility] [address] [place], [address] GAP 7 Normal 5-15 [facility] Comment on above: Performed By: #### L 500.4050, L501.9985, L501.9940, L100.0100, L502.0250 ####[facility] [address] [place], [address] GFR/1.73 sq M.predicted among non-blacks MDRD (S/P/Bld) [Vol rate/Area] 63 mL/min/{1.73_m2} Normal >60 [facility] Comment on above: Result Comment: Non- GFR Calc Performed By: #### L 500.4050, L501.9985, L501.9940, L100.0100, L502.0250 ####[facility] [address] [place], [address] Globulin (S) [Mass/Vol] 3.3 g/dL Normal 2.2-4.2 [facility] Comment on above: Performed By: #### L 500.4050, L501.9985, L501.9940, L100.0100, L502.0250 ####[facility] [address] [place], [address] Glucose [Mass/Vol] 116 mg/dL High 74-106 [facility] Comment on above: Result Comment: Fast ing Glucose result from 100 to 125 mg/dL suggests IMPAIRED HOMEOSTASIS per A.D.A. criteria. Performed By: #### L 500.4050, L501.9985, L501.9940, L100.0100, L502.0250 ####[facility] [address] [place], [address] Potassium [Moles/Vol] 4.2 mmol/L Normal 3.5-5.1 [facility] Comment on above: Performed By: #### L 500.4050, L501.9985, L501.9940, L100.0100, L502.0250 ####[facility] [address] [place], [address] Sodium [Moles/Vol] 139 mmol/L Normal 136-145 [facility] Comment on above: Performed By: #### L 500.4050, L501.9985, L501.9940, L100.0100, L502.0250 ####[facility] [address] [place], [address] T PROT 7.3 g/dL Normal 6.4-8.2 [facility] Comment on above: Performed By: #### L 500.4050, L501.9985, L501.9940, L100.0100, L502.0250 ####[facility] [address] [place], [address] Urea nitrogen [Mass/Vol] 15 mg/dL Normal 7-18 [facility] Comment on above: Performed By: #### L 500.4050, L501.9985, L501.9940, L100.0100, L502.0250 ####[facility] [address] [place], [address] Hemoglobin A1con 03-27-2024 HbA1c (Bld) [Mass fraction] 5.7 % High 3.8-5.6 [facility] Comment on above: Result Comment: Norm al < 5.7 % Prediabetic 5.7 - 6.4 % Diabetic >or= 6.5 % Please note range changes. Performed By: #### L 500.4050, L501.9985, L501.9940, L100.0100, L502.0250 ####[facility] [address] [place], [address] Microalb:Creat Ratio,Random URon 03-27-2024 Creatinine [Mass/Vol] 140.00 mg/dL Normal NO RAN GE EST. [facility] Comment on above: Performed By: #### L 500.4050, L501.9985, L501.9940, L100.0100, L502.0250 #### [facility] [address] [place], [address] MALB:CRE 7.1 mg/g CRE Normal <30 mg/g CRE [facility] Comment on above: Performed By: #### L 500.4050, L501.9985, L501.9940, L100.0100, L502.0250 #### [facility] [address] [place], [address] MICROALBUMIN,UR 10.0 mg/L Normal NO RANGE EST. [facility] Comment on above: Performed By: #### L 500.4050, L501.9985, L501.9940, L100.0100, L502.0250 #### [facility] [address] [place], [address] PSA,Total- Diagnosticon 11-0 PSA, DIAGNOSTIC 8.54 ng/mL High 0.0-4.0 [facility] Comment on above: Result Comment: This test was performed using the TPSA assay method for the [employer] chemistry system. Values obtained with different assay methods cannot be used interchangably. When changing PSA assays in the course of monitoring a patient, additional sequential testing should be carried out to confirm baseline values. Performed By: #### L 500.4050, L501.9985, L501.9940, L100.0100, L502.0250 ####[facility] [address] [place], [address] Absolute lymphocyte countOrd ered By: Fabricioapolinar Tomas on 09-21-2023 Lymphocytes Auto (Unsp spec) [#/Vol] 1.76 10*3/uL 0.83-4.51 [facility] Automated lymphocyte count a s percentage of total leukocytesOrdered By: Fabricio Tomas on 09-21-2023 Lymphocytes/100 WBC Auto (Unsp spec) 34.4 % 19-41 [facility] Basophil percentageOrdered B y: Fabricio Tomas on 09-21-2023 Basophil percentage 9.13 ng/mL 0.0-4.0 [facility] Comment on above: This test was perfor med using the TPSA assay method for the[employer] chemistry system. Values obtained with differentassay methods cannot be used interchangably.When changing PSA assays in the course of monitoring apatient, additional sequential testing should be carriedout to confirm baseline values. Basophils/100 WBC (Bld) 1.2 % 0-1 [facility] Bilirubin [Mass/Vol] 1.10 mg/dL 0.20-1.00 [facility] Comment on above: For patients on eltr ombopag therapy, use of Dimension [place] TBIL is not recommended. Chloride [Moles/Vol] 108 mmol/L 98-107 [facility] Cholesterol [Mass/Vol] 172 mg/dL <200 [facility] Comment on above: <200 mg/dL Desirable 200-240 mg/dL Borderline >240 mg/dL High Risk Eosinophils/100 WBC (Bld) 3.5 % 0-5 [facility] Glucose [Mass/Vol] 106 mg/dL 74-106 [facility] Comment on above: Fasting Glucose resu lt from 100 to 125 mg/dL suggests IMPAIRED HOMEOSTASIS per A.D.A. criteria. Hemoglobin (Bld) [Mass/Vol] 16.3 g/dL 13.0-16.5 [facility] Monocytes/100 WBC (Bld) 9.2 % 0-10 [facility] Neutrophils (Bld) [#/Vol] 2.6 10*3/uL 2.0-7.7 [facility] Neutrophils/100 WBC (Bld) 51.3 % 47-70 [facility] Potassium [Moles/Vol] 4.2 mmol/L 3.5-5.1 [facility] Protein [Mass/Vol] 7.1 g/dL 6.4-8.2 [facility] Sodium [Moles/Vol] 139 mmol/L 136-145 [facility] Triglyceride [Mass/Vol] 133 mg/dL <199 [facility] Comment on above: The drugs N-Acetylcy steine and Metamizole may falsely depress this assay.Serum Triglycerides Reference Interval Normal <150 mg/dL Borderline high 150 - 199 mg/dL High 200 - 499 mg/dL Very High > or = 500 mg/dL WBC (Bld) [#/Vol] 5.1 10*3/uL 4.4-11.0 [facility] Determination of erythrocyte mean corpuscular volume (MCV)Ordered By: Fabricio Tomas on 09-21-2023 MCV (RBC) [Entitic vol] 87.0 fL 80-94 [facility] Erythrocyte distribution wid th ratioOrdered By: Fabricio Tomas on 09-21-2023 Erythrocyte distribution width (RBC) [Ratio] 12.4 % 11.6-14.6 [facility] Erythrocyte distribution wid th standard deviationOrdered By: Fabricio Tomas on 09-21-2023 Erythrocyte distribution width (RBC) [Entitic vol] 39.5 fL 35.1-43.9 [facility] Hematocrit Auto (Bld) [Volum e fraction]Ordered By: Fabricio Tomas on 09-21-2023 Hematocrit (Bld) [Volume fraction] 47.7 % 40-54 [facility] Immature granulocytes/100 WB C Auto (Bld)Ordered By: Fabricio Tomas on 09-21-2023 Immature granulocytes/100 WBC (Bld) 0.400 % 0.0-0.9 [facility] Comment on above: IG% - Immature Granu locytes (promyelocytes, myelocytes and metamyelocytes) > 1% indicates that a LEFT SHIFT is Present. Laboratory - Chemistry and C hemistry - challengeOrdered By: Fabricio Tomas on 09-21-2023 Albumin/Globulin [Mass ratio] 1.2 {ratio} 0.9-2.4 [facility] ALP [Catalytic activity/Vol] 100 U/L 45-117 [facility] ALT [Catalytic activity/Vol] 55 U/L 16-61 [facility] Cholesterol in HDL [Mass/Vol] 54 mg/dL >40 [facility] Comment on above: The drugs N-Acetylcy steine and Metamizole may falsely depress this assay. Reference Range HDL <40 mg/dL Low HDL Cholesterol HDL >or= 60 mg/dL High HDL Cholesterol Cholesterol in LDL [Mass/Vol] 91 mg/dL 0-130 [facility] CO2 [Moles/Vol] 25.0 mmol/L 21.0-32.0 [facility] Globulin (S) [Mass/Vol] 3.3 g/dL 2.2-4.2 [facility] Urea nitrogen/Creatinine [Mass ratio] 14.9 mg/mg 10-20 [facility] - Hematology and Cell countsOrdered By: Fabricio Tomas on 09-21-2023 MCH (RBC) [Entitic mass] 29.7 pg 27.0-32.0 [facility] MCHC (RBC) [Mass/Vol] 34.2 g/dL 32-36 [facility] Nucleated RBC/100 WBC (Bld) [Ratio] 0 % 0-5 [facility] Platelet mean volume (Bld) [Entitic vol] 9.1 fL 6.2-12.0 [facility] Platelets (Bld) [#/Vol] 214 10*3/uL 150-450 [facility] No Panel InformationOrdered By: Fabricio Tomas on 09-21-2023 Estimated GFR (MDRD) Amer 76 mL/min >60 [facility] Comment on above: GFR Calc Estimated GFR (MDRD) Non-Af Amer 63 mL/min >60 [facility] Comment on above: Non- GFR Calc Percent Free Prostate Specific Ag 1.93 ng/mL N/A [facility] Comment on above: Pérez ECLIA methodol ogy. Prostate Specific Ag, Ultra-Sensitv 8.610 ng/mL 0.000-4.000 [facility] Comment on above: Pérez ECLIA methodol ogy.According to the [place] [employer], Serum PSAshould decrease and remain at undetectable levels afterradical prostatectomy. The AUA defines biochemicalrecurrence as an initial PSA value 0.200 ng/mL or greaterfollowed by a subsequent confirmatory PSA value 0.200 ng/mLor greater. Values obtained with different assay methods orkits cannot be used interchangeably. Results cannot beinterpreted as absolute evidence of the presence or absenceof malignant disease. Vitamin D 25-Hydroxy 38.6 ng/mL [facility] Comment on above: Vitamin D 25(OH) Sta tus Range Deficiency <20 ng/mL (50nmol/L) Insufficiency 20 - 30 ng/mL (50 - 75 nmol/L) Sufficiency 30 - 100 ng/mL (75 - 250 nmol/L) Toxicity >100 ng/mL (>250 nmol/L) VLDL Cholesterol 27 mg/dL 5-40 [facility] RBC Auto (Bld) [#/Vol]Ordere d By: Fabricio Tomas on 09-21-2023 RBC (Bld) [#/Vol] 5.48 10*6/uL 4.6-6.2 [facility] Serum or plasma calcium camryn urement (mass/volume)Ordered By: Fabricio Tomas on 09-21-2023 Calcium [Mass/Vol] 9.2 mg/dL 8.5-10.1 [facility] Serum or plasma creatinine m easurement (mass/volume)Ordered By: Fabricio Tomas on 09-21-2023 Creatinine [Mass/Vol] 1.21 mg/dL 0.70-1.30 [facility] Comment on above: The validity of the calculated GFR & GFRAA in patients over 70 years has not been determined. Clinical correlation is essential. Serum or plasma free prostat e specific antigen/total prostate specific antigen ratioOrdered By: Fabricio Tomas on 09-21-2023 Free PSA/Total PSA [Mass fraction] 22.4 % . [facility] Comment on above: The table below list s the probability of prostate cancer formen with non-suspicious JERZY results and total PSA between4 and 10 ng/mL, by patient age (Shyam et al, MORENO 1998,279:1542). % Free PSA 50-64 yr 65-75 yr 0.00-10.00% 56% 55% 10.01-15.00% 24% 35% 15.01-20.00% 17% 23% 20.01-25.00% 10% 20% >25.00% 5% 9%Please note: Shyam et al did not make specific recommendations regarding the use of percent free PSA for any other population of men.Performed at: [facility] [id number] Director: Thomas Sunshine PhD, Phone: [phone] Serum or plasma urea nitroge n measurement (mass/volume)Ordered By: Fabricio Tomas on 09-21-2023 Urea nitrogen [Mass/Vol] 18 mg/dL 7-18 [facility] Thin prep Papanicolaou smear with manual screeningOrdered By: Fabricio Tomas on 09-21-2023 Thin prep Papanicolaou smear with manual screening 3.8 g/dL 3.2-5.0 [facility] Thin prep Papanicolaou smear with manual screening 37 U/L 15-37 [facility] Thin prep Papanicolaou smear with manual screening 6 5-15 [facility] Whole blood hemoglobin A1c/t otal hemoglobin ratio (mass fraction)Ordered By: Fabricio Tomas on 09-21-2023 HbA1c (Bld) [Mass fraction] 5.6 % 3.8-5.6 [facility] Comment on above: Normal < 5.7 % Predi abetic 5.7 - 6.4 % Diabetic >or= 6.5 % Please note range changes. Basophil percentageOrdered B y: Dejuan Dohertyano on 03-25-2023 Creatinine [Mass/Vol] 0.9 mg/dL 0.70-1.30 [facility] No Panel InformationOrdered By: Dejuan Dohertyano on 03-25-2023 Bedside Estimated GFR (eGFR) > 60.0000 mL/min >60 [facility] No Panel InformationOrdered By: Gladys Raya on 02-01-2023 Prostate Specific Antigen Screen 8.80 ng/mL 0.00-4.00 [facility] Comment on above: This test was perfor med using the TPSA assay method for [employer] chemistry system. Values obtained with differentassay methods cannot be used interchangably.When changing PSA assays in the course of monitoring apatient, additional sequential testing should be carriedout to confirm baseline values. Absolute lymphocyte countOrd ered By: Dr. Tomas on 07-02-2022 Lymphocytes Auto (Unsp spec) [#/Vol] 1.71 10*3/uL 0.83-4.51 [facility] Basophil percentageOrdered B y: Dr. Tomas on 07-02-2022 Basophils/100 WBC (Bld) 1.1 % 0-1 [facility] Bilirubin [Mass/Vol] 0.90 mg/dL 0.20-1.00 [facility] Comment on above: For patients on eltr ombopag therapy, use of Dimension [place] TBIL is not recommended. Chloride [Moles/Vol] 107 mmol/L 98-107 [facility] Cholesterol [Mass/Vol] 198 mg/dL <200 [facility] Comment on above: <200 mg/dL Desirable 200-240 mg/dL Borderline >240 mg/dL High Risk Eosinophils/100 WBC (Bld) 1.4 % 0-5 [facility] Glucose [Mass/Vol] 117 mg/dL 74-106 [facility] Comment on above: Fasting Glucose resu lt from 100 to 125 mg/dL suggests IMPAIRED HOMEOSTASIS per A.D.A. criteria. Neutrophils (Bld) [#/Vol] 4.5 10*3/uL 2.0-7.7 [facility] Neutrophils/100 WBC (Bld) 63.4 % 47-70 [facility] Potassium [Moles/Vol] 4.4 mmol/L 3.5-5.1 [facility] Protein [Mass/Vol] 8.0 g/dL 6.4-8.2 [facility] Sodium [Moles/Vol] 142 mmol/L 136-145 [facility] Triglyceride [Mass/Vol] 120 mg/dL <199 [facility] Comment on above: The drugs N-Acetylcy steine and Metamizole may falsely depress this assay.Serum Triglycerides Reference Interval Normal <150 mg/dL Borderline high 150 - 199 mg/dL High 200 - 499 mg/dL Very High > or = 500 mg/dL WBC (Bld) [#/Vol] 7.0 10*3/uL 4.4-11.0 [facility] Blood erythrocytes count (nu mber/volume)Ordered By: Dr. Tomas on 07-02-2022 RBC (Bld) [#/Vol] 6.11 10*6/uL 4.6-6.2 [facility] Blood hemoglobin measurement (mass/volume)Ordered By: Dr. Tomas on 07-02-2022 Hemoglobin (Bld) [Mass/Vol] 17.9 g/dL 13.0-16.5 [facility] Blood lymphocytes/100 leukoc ytesOrdered By: Dr. Tomas on 07-02-2022 Lymphocytes/100 WBC (Bld) 24.3 % 19-41 [facility] Blood monocytes/100 leukocyt esOrdered By: Dr. Tomas on 07-02-2022 Monocytes/100 WBC (Bld) 8.7 % 0-10 [facility] Blood platelet mean volumeOr dered By: Dr. Tomas on 07-02-2022 Platelet mean volume (Bld) [Entitic vol] 9.4 fL 6.2-12.0 [facility] Determination of erythrocyte mean corpuscular volume (MCV)Ordered By: Dr. Tomas on 07-02-2022 MCV (RBC) [Entitic vol] 86.1 fL 80-94 [facility] Hematocrit Auto (Bld) [Volum e fraction]Ordered By: Dr. Tomas on 07-02-2022 Hematocrit (Bld) [Volume fraction] 52.6 % 40-54 [facility] - Chemistry and C hemistry - challengeOrdered By: Dr. Tomas on 07-02-2022 ALP [Catalytic activity/Vol] 94 U/L 45-117 [facility] ALT [Catalytic activity/Vol] 43 U/L 16-61 [facility] CO2 [Moles/Vol] 26.0 mmol/L 21.0-32.0 [facility] Globulin (S) [Mass/Vol] 4.0 g/dL 2.2-4.2 [facility] Urea nitrogen/Creatinine [Mass ratio] 12.7 mg/mg 10-20 [facility] - Hematology and Cell countsOrdered By: Dr. Tomas on 07-02-2022 Erythrocyte distribution width (RBC) [Entitic vol] 38.5 fL 35.1-43.9 [facility] Erythrocyte distribution width (RBC) [Ratio] 12.2 % 11.6-14.6 [facility] Immature granulocytes/100 WBC (Bld) 1.100 % 0.0-0.9 [facility] Comment on above: IG% - Immature Granu locytes (promyelocytes, myelocytes and metamyelocytes) > 1% indicates that a LEFT SHIFT is Present. MCH (RBC) [Entitic mass] 29.3 pg 27.0-32.0 [facility] Nucleated RBC/100 WBC (Bld) [Ratio] 0 % 0-5 [facility] MCHC Auto (RBC) [Mass/Vol]Or dered By: Dr. Tomas on 07-02-2022 MCHC (RBC) [Mass/Vol] 34.0 g/dL 32-36 [facility] No Panel InformationOrdered By: Dr. Tomas on 07-02-2022 Urine Microalbumin/Creatinin e Ratio 11.4 mg/g CRE <30 [facility] Estimated GFR (MDRD) Amer 63 mL/min >60 [facility] Comment on above: GFR Calc Estimated GFR (MDRD) Non-Af Amer 52 mL/min >60 [facility] Comment on above: Non- GFR Calc Vitamin D 25-Hydroxy 43.0 ng/mL [facility] Comment on above: Vitamin D 25(OH) Sta tus Range Deficiency <20 ng/mL (50nmol/L) Insufficiency 20 - 30 ng/mL (50 - 75 nmol/L) Sufficiency 30 - 100 ng/mL (75 - 250 nmol/L) Toxicity >100 ng/mL (>250 nmol/L) Platelets bldOrdered By: Dr. Tomas on 07-02-2022 Platelets (Bld) [#/Vol] 279 10*3/uL 150-450 [facility] Serum or plasma albumin camryn urement (mass/volume)Ordered By: Dr. Tomas on 07-02-2022 Albumin [Mass/Vol] 4.0 g/dL 3.2-5.0 [facility] Serum or plasma albumin/glob ulin mass ratioOrdered By: Dr. Tomas on 07-02-2022 Albumin/Globulin [Mass ratio] 1.0 {ratio} 0.9-2.4 [facility] Serum or plasma calcium camryn urement (mass/volume)Ordered By: Dr. Tomas on 07-02-2022 Calcium [Mass/Vol] 9.8 mg/dL 8.5-10.1 [facility] Serum or plasma cholesterol in HDL measurement (mass/volume)Ordered By: Dr. Tomas on 07-02-2022 Cholesterol in HDL [Mass/Vol] 60 mg/dL >40 [facility] Comment on above: The drugs N-Acetylcy steine and Metamizole may falsely depress this assay. Reference Range HDL <40 mg/dL Low HDL Cholesterol HDL >or= 60 mg/dL High HDL Cholesterol Serum or plasma cholesterol in VLDL measurement (mass/volume)Ordered By: Dr. Tomas on 07-02-2022 Cholesterol in VLDL [Mass/Vol] 24 mg/dL 5-40 [facility] Serum or plasma creatinine m easurement (mass/volume)Ordered By: Dr. Tomas on 07-02-2022 Creatinine [Mass/Vol] 1.42 mg/dL 0.70-1.30 [facility] Comment on above: The validity of the calculated GFR & GFRAA in patients over 70 years has not been determined. Clinical correlation is essential. Serum or plasma low density lipoprotein (LDL) cholesterol measurement (mass/volume)Ordered By: Dr. Tomas on 07-02-2022 Cholesterol in LDL [Mass/Vol] 114 mg/dL 0-130 [facility] Serum or plasma urea nitroge n measurement (mass/volume)Ordered By: Dr. Tomas on 07-02-2022 Urea nitrogen [Mass/Vol] 18 mg/dL 7-18 [facility] Thin prep Papanicolaou smear with manual screeningOrdered By: Dr. Tomas on 07-02-2022 Thin prep Papanicolaou smear with manual screening 15.7 mg/L NO RANGE EST. [facility] Thin prep Papanicolaou smear with manual screening 27 U/L 15-37 [facility] Thin prep Papanicolaou smear with manual screening 9 5-15 [facility] Urine creatinine measurement (mass/volume)Ordered By: Dr. Tomas on 07-02-2022 Creatinine (U) [Mass/Vol] 138.00 mg/dL NO RANGE EST. [facility] Whole blood hemoglobin A1c/t otal hemoglobin ratio (mass fraction)Ordered By: Dr. Tomas on 07-02-2022 HbA1c (Bld) [Mass fraction] 5.5 % 3.8-5.6 [facility] Comment on above: Normal < 5.7 % Predi abetic 5.7 - 6.4 % Diabetic >or= 6.5 % Please note range changes. Absolute lymphocyte countOrd ered By: Dr. Fleming on 05-14-2022 Lymphocytes Auto (Unsp spec) [#/Vol] 2.04 10*3/uL 0.83-4.51 [facility] Basophil percentageOrdered B y: Dr. Fleming on 05-14-2022 Basophils/100 WBC (Bld) 1.0 % 0-1 [facility] Chloride [Moles/Vol] 106 mmol/L 98-107 [facility] Eosinophils/100 WBC (Bld) 1.8 % 0-5 [facility] Glucose [Mass/Vol] 132 mg/dL 74-106 [facility] Comment on above: Fasting Glucose resu lt greater than or equal to 126 mg/dL suggests DIABETES MELLITUS per A.D.A. criteria. Neutrophils (Bld) [#/Vol] 4.9 10*3/uL 2.0-7.7 [facility] Neutrophils/100 WBC (Bld) 61.3 % 47-70 [facility] Potassium [Moles/Vol] 4.0 mmol/L 3.5-5.1 [facility] Sodium [Moles/Vol] 139 mmol/L 136-145 [facility] WBC (Bld) [#/Vol] 8.0 10*3/uL 4.4-11.0 [facility] Blood erythrocytes count (nu mber/volume)Ordered By: Dr. Fleming on 05-14-2022 RBC (Bld) [#/Vol] 5.80 10*6/uL 4.6-6.2 [facility] Blood hemoglobin measurement (mass/volume)Ordered By: Dr. Fleming on 05-14-2022 Hemoglobin (Bld) [Mass/Vol] 17.3 g/dL 13.0-16.5 [facility] Blood lymphocytes/100 leukoc ytesOrdered By: Dr. Fleming on 05-14-2022 Lymphocytes/100 WBC (Bld) 25.6 % 19-41 [facility] Blood monocytes/100 leukocyt esOrdered By: Dr. Fleming on 05-14-2022 Monocytes/100 WBC (Bld) 10.2 % 0-10 [facility] Blood platelet mean volumeOr dered By: Dr. Fleming on 05-14-2022 Platelet mean volume (Bld) [Entitic vol] 9.2 fL 6.2-12.0 [facility] Determination of erythrocyte mean corpuscular volume (MCV)Ordered By: Dr. Fleming on 05-14-2022 MCV (RBC) [Entitic vol] 86.9 fL 80-94 [facility] Hematocrit Auto (Bld) [Volum e fraction]Ordered By: Dr. Fleming on 05-14-2022 Hematocrit (Bld) [Volume fraction] 50.4 % 40-54 [facility] Laboratory - Chemistry and C hemistry - challengeOrdered By: Dr. Fleming on 05-14-2022 CO2 [Moles/Vol] 26.0 mmol/L 21.0-32.0 [facility] Urea nitrogen/Creatinine [Mass ratio] 11.5 mg/mg 10-20 [facility] Laboratory - Hematology and Cell countsOrdered By: Dr. Fleming on 05-14-2022 Erythrocyte distribution width (RBC) [Entitic vol] 38.9 fL 35.1-43.9 [facility] Erythrocyte distribution width (RBC) [Ratio] 12.3 % 11.6-14.6 [facility] Immature granulocytes/100 WBC (Bld) 0.100 % 0.0-0.9 [facility] Comment on above: IG% - Immature Granu locytes (promyelocytes, myelocytes and metamyelocytes) > 1% indicates that a LEFT SHIFT is Present. MCH (RBC) [Entitic mass] 29.8 pg 27.0-32.0 [facility] Nucleated RBC/100 WBC (Bld) [Ratio] 0 % 0-5 [facility] MCHC Auto (RBC) [Mass/Vol]Or dered By: Dr. Fleming on 05-14-2022 MCHC (RBC) [Mass/Vol] 34.3 g/dL 32-36 [facility] No Panel InformationOrdered By: Dr. Fleming on 05-14-2022 Estimated Creatinine Clearance Calc 56.34 ml/min [facility] Estimated GFR (MDRD) Amer 76 mL/min >60 [facility] Comment on above: GFR Calc Estimated GFR (MDRD) Non-Af Amer 62 mL/min >60 [facility] Comment on above: Non- GFR Calc Platelets bldOrdered By: Dr. Fleming on 05-14-2022 Platelets (Bld) [#/Vol] 275 10*3/uL 150-450 [facility] Serum or plasma calcium camryn urement (mass/volume)Ordered By: Dr. Fleming on 05-14-2022 Calcium [Mass/Vol] 9.8 mg/dL 8.5-10.1 [facility] Serum or plasma creatinine m easurement (mass/volume)Ordered By: Dr. Fleming on 05-14-2022 Creatinine [Mass/Vol] 1.22 mg/dL 0.70-1.30 [facility] Comment on above: The validity of the calculated GFR & GFRAA in patients over 70 years has not been determined. Clinical correlation is essential. Serum or plasma urea nitroge n measurement (mass/volume)Ordered By: Dr. Fleming on 05-14-2022 Urea nitrogen [Mass/Vol] 14 mg/dL 7-18 [facility] Thin prep Papanicolaou smear with manual screeningOrdered By: Dr. Fleming on 05-14-2022 Thin prep Papanicolaou smear with manual screening 7 - [facility] Absolute lymphocyte counton 09-17-2021 Lymphocytes Auto (Unsp spec) [#/Vol] 1.92 10*3/uL 0.83-4.51 [facility] Work Phone: Basophil percentageon 2021 Basophils/100 WBC (Bld) 1.1 % 0-1 [facility] Work Phone: [phone] Bilirubin [Mass/Vol] 0.40 mg/dL 0.20-1.00 [facility] Work Phone: Comment on above: For patients on eltr ombopag therapy, use of Dimension [place] TBIL is not recommended. Chloride [Moles/Vol] 109 mmol/L 98-107 [facility] Work Phone: Cholesterol [Mass/Vol] 181 mg/dL <200 [facility] Work Phone: Comment on above: <200 mg/dL Desirable 200-240 mg/dL Borderline >240 mg/dL High Risk Eosinophils/100 WBC (Bld) 3.2 % 0-5 [facility] Work Phone: [phone] Glucose [Mass/Vol] 117 mg/dL 74-106 [facility] Work Phone: Comment on above: Fasting Glucose resu lt from 100 to 125 mg/dL suggests IMPAIRED HOMEOSTASIS per A.D.A. criteria. Neutrophils (Bld) [#/Vol] 4.4 10*3/uL 2.0-7.7 [facility] Work Phone: Neutrophils/100 WBC (Bld) 58.8 % 47-70 [facility] Work Phone: Potassium [Moles/Vol] 4.0 mmol/L 3.5-5.1 [facility] Work Phone: Protein [Mass/Vol] 6.4 g/dL 6.4-8.2 [facility] Work Phone: Sodium [Moles/Vol] 141 mmol/L 136-145 [facility] Work Phone: Triglyceride [Mass/Vol] 143 mg/dL [facility] Work Phone: Comment on above: The drugs N-Acetylcy steine and Metamizole may falsely depress this assay.Serum Triglycerides Reference Interval Normal <150 mg/dL Borderline high 150 - 199 mg/dL High 200 - 499 mg/dL Very High > or = 500 mg/dL WBC (Bld) [#/Vol] 7.5 10*3/uL 4.4-11.0 [facility] Work Phone: Blood erythrocytes count (nu mber/volume)on 09-17-2021 RBC (Bld) [#/Vol] 5.36 10*6/uL 4.6-6.2 [facility] Work Phone: Blood hemoglobin measurement (mass/volume)on 09-17-2021 Hemoglobin (Bld) [Mass/Vol] 15.9 g/dL 13.0-16.5 [facility] Work Phone: Blood lymphocytes/100 leukoc yteson 09-17-2021 Lymphocytes/100 WBC (Bld) 25.5 % 19-41 [facility] Work Phone: Blood monocytes/100 leukocyt eson 09-17-2021 Monocytes/100 WBC (Bld) 11.3 % 0-10 [facility] Work Phone: Blood platelet mean volumeon 09-17-2021 Platelet mean volume (Bld) [Entitic vol] 9.0 fL 6.2-12.0 [facility] Work Phone: Determination of erythrocyte mean corpuscular volume (MCV)on 09-17-2021 MCV (RBC) [Entitic vol] 86.0 fL 80-94 [facility] Work Phone: Hematocrit Auto (Bld) [Volum e fraction]on 09-17-2021 Hematocrit (Bld) [Volume fraction] 46.1 % 40-54 [facility] Work Phone: Laboratory - Chemistry and C hemistry - challengeon 09-17-2021 ALP [Catalytic activity/Vol] 80 U/L 45-117 [facility] Work Phone: ALT [Catalytic activity/Vol] 32 U/L 16-61 [facility] Work Phone: CO2 [Moles/Vol] 26.0 mmol/L 21.0-32.0 [facility] Work Phone: Globulin (S) [Mass/Vol] 3.1 g/dL 2.2-4.2 [facility] Work Phone: Urea nitrogen/Creatinine [Mass ratio] 13.7 mg/mg 10-20 [facility] Work Phone: Laboratory - Hematology and Cell countson 09-17-2021 Erythrocyte distribution width (RBC) [Entitic vol] 39.2 fL 35.1-43.9 [facility] Work Phone: Erythrocyte distribution width (RBC) [Ratio] 12.6 % 11.6-14.6 [facility] Work Phone: Immature granulocytes/100 WBC (Bld) 0.100 % 0.0-0.9 [facility] Work Phone: Comment on above: IG% - Immature Granu locytes (promyelocytes, myelocytes and metamyelocytes) > 1% indicates that a LEFT SHIFT is Present. MCH (RBC) [Entitic mass] 29.7 pg 27.0-32.0 [facility] Work Phone: Nucleated RBC/100 WBC (Bld) [Ratio] 0 % 0-5 [facility] Work Phone: MCHC Auto (RBC) [Mass/Vol]on 09-17-2021 MCHC (RBC) [Mass/Vol] 34.5 g/dL 32-36 [facility] Work Phone: No Panel Informationon 09-17 Estimated Creatinine Clearance Calc 61.53 ml/min [facility] Work Phone: Estimated GFR (MDRD) Amer 79 mL/min >60 [facility] Work Phone: Comment on above: GFR Calc Estimated GFR (MDRD) Non-Af Amer 66 mL/min >60 [facility] Work Phone: Comment on above: Non- GFR Calc Thyroid Stimulating Hormone (TSH) 1.33 uIU/mL 0.358-3.74 [facility] Work Phone: Platelets bldon 09-17-2021 Platelets (Bld) [#/Vol] 222 10*3/uL 150-450 [facility] Work Phone: Serum or plasma albumin camryn urement (mass/volume)on 09-17-2021 Albumin [Mass/Vol] 3.3 g/dL 3.2-5.0 [facility] Work Phone: Serum or plasma albumin/glob ulin mass ratioon 09-17-2021 Albumin/Globulin [Mass ratio] 1.1 {ratio} 0.9-2.4 [facility] Work Phone: Serum or plasma calcium camryn urement (mass/volume)on 09-17-2021 Calcium [Mass/Vol] 8.2 mg/dL 8.5-10.1 [facility] Work Phone: Serum or plasma cholesterol in HDL measurement (mass/volume)on 09-17-2021 Cholesterol in HDL [Mass/Vol] 45 mg/dL [facility] Work Phone: Comment on above: The drugs N-Acetylcy steine and Metamizole may falsely depress this assay. Reference Range HDL <40 mg/dL Low HDL Cholesterol HDL >or= 60 mg/dL High HDL Cholesterol Serum or plasma cholesterol in VLDL measurement (mass/volume)on 09-17-2021 Cholesterol in VLDL [Mass/Vol] 29 mg/dL 5-40 [facility] Work Phone: Serum or plasma creatinine m easurement (mass/volume)on 09-17-2021 Creatinine [Mass/Vol] 1.17 mg/dL 0.70-1.30 [facility] Work Phone: Comment on above: The validity of the calculated GFR & GFRAA in patients over 70 years has not been determined. Clinical correlation is essential. Serum or plasma low density lipoprotein (LDL) cholesterol measurement (mass/volume)on 09-17-2021 Cholesterol in LDL [Mass/Vol] 107 mg/dL 0-130 [facility] Work Phone: Serum or plasma urea nitroge n measurement (mass/volume)on 09-17-2021 Urea nitrogen [Mass/Vol] 16 mg/dL 7-18 [facility] Work Phone: Thin prep Papanicolaou smear with manual screeningon 09-17-2021 Thin prep Papanicolaou smear with manual screening 20 U/L 15-37 [facility] Work Phone: Thin prep Papanicolaou smear with manual screening 6 5-15 [facility] Work Phone: Whole blood hemoglobin A1c/t otal hemoglobin ratio (mass fraction)on 09-17-2021 HbA1c (Bld) [Mass fraction] 5.8 % 3.8-5.6 [facility] Work Phone: Comment on above: Normal < 5.7 % Predi abetic 5.7 - 6.4 % Diabetic >or= 6.5 % Please note range changes. Absolute lymphocyte counton 09-16-2021 Lymphocytes Auto (Unsp spec) [#/Vol] 1.89 10*3/uL 0.83-4.51 [facility] Work Phone: Basophil percentageon 2021 Basophils/100 WBC (Bld) 1.3 % 0-1 [facility] Work Phone: Chloride [Moles/Vol] 106 mmol/L 98-107 [facility] Work Phone: Eosinophils/100 WBC (Bld) 3.1 % 0-5 [facility] Work Phone: [phone] Glucose [Mass/Vol] 162 mg/dL 74-106 [facility] Work Phone: Comment on above: Fasting Glucose resu lt greater than or equal to 126 mg/dL suggests DIABETES MELLITUS per A.D.A. criteria. Neutrophils (Bld) [#/Vol] 3.3 10*3/uL 2.0-7.7 [facility] Work Phone: Neutrophils/100 WBC (Bld) 53.1 % 47-70 [facility] Work Phone: [phone] Potassium [Moles/Vol] 4.3 mmol/L 3.5-5.1 [facility] Work Phone: Sodium [Moles/Vol] 136 mmol/L 136-145 [facility] Work Phone: WBC (Bld) [#/Vol] 6.2 10*3/uL 4.4-11.0 [facility] Work Phone: Blood erythrocytes count (nu mber/volume)on 09-16-2021 RBC (Bld) [#/Vol] 5.77 10*6/uL 4.6-6.2 [facility] Work Phone: Blood hemoglobin measurement (mass/volume)on 09-16-2021 Hemoglobin (Bld) [Mass/Vol] 17.6 g/dL 13.0-16.5 [facility] Work Phone: Blood lymphocytes/100 leukoc yteson 09-16-2021 Lymphocytes/100 WBC (Bld) 30.7 % 19-41 [facility] Work Phone: Blood monocytes/100 leukocyt eson 09-16-2021 Monocytes/100 WBC (Bld) 11.5 % 0-10 [facility] Work Phone: Blood platelet mean volumeon 09-16-2021 Platelet mean volume (Bld) [Entitic vol] 9.1 fL 6.2-12.0 [facility] Work Phone: Determination of erythrocyte mean corpuscular volume (MCV)on 09-16-2021 MCV (RBC) [Entitic vol] 86.1 fL 80-94 [facility] Work Phone: Hematocrit Auto (Bld) [Volum e fraction]on 09-16-2021 Hematocrit (Bld) [Volume fraction] 49.7 % 40-54 [facility] Work Phone: [phone] Laboratory - Chemistry and C hemistry - challengeon 09-16-2021 Magnesium [Mass/Vol] 2.3 mg/dL 1.6-2.6 [facility] Work Phone: CO2 [Moles/Vol] 26.0 mmol/L 21.0-32.0 [facility] Work Phone: Urea nitrogen/Creatinine [Mass ratio] 11.0 mg/mg 10-20 [facility] Work Phone: Laboratory - Hematology and Cell countson 09-16-2021 Erythrocyte distribution width (RBC) [Entitic vol] 38.3 fL 35.1-43.9 [facility] Work Phone: Erythrocyte distribution width (RBC) [Ratio] 12.2 % 11.6-14.6 [facility] Work Phone: Immature granulocytes/100 WBC (Bld) 0.300 % 0.0-0.9 [facility] Work Phone: Comment on above: IG% - Immature Granu locytes (promyelocytes, myelocytes and metamyelocytes) > 1% indicates that a LEFT SHIFT is Present. MCH (RBC) [Entitic mass] 30.5 pg 27.0-32.0 [facility] Work Phone: Nucleated RBC/100 WBC (Bld) [Ratio] 0 % 0-5 [facility] Work Phone: MCHC Auto (RBC) [Mass/Vol]on 09-16-2021 MCHC (RBC) [Mass/Vol] 35.4 g/dL 32-36 [facility] Work Phone: No Panel Informationon 09-16 Troponin I High Sensitivity 10 pg/mL 3.0-78.0 [facility] Work Phone: Comment on above: Please Note: New Luz t Units and Gender Specific Reference Ranges. For more information see Policy Stat Procedure [place] High Sensitivity Troponin (TNIH) and attachments. Troponin I High Sensitivity 6 pg/mL 3.0-78.0 [facility] Work Phone: Comment on above: Please Note: New Luz t Units and Gender Specific Reference Ranges. For more information see Policy Stat Procedure [place] High Sensitivity Troponin (TNIH) and attachments. Estimated Creatinine Clearance Calc 61.01 ml/min [facility] Work Phone: Estimated GFR (MDRD) Amer 79 mL/min >60 [facility] Work Phone: Comment on above: GFR Calc Estimated GFR (MDRD) Non-Af Amer 65 mL/min >60 [facility] Work Phone: Comment on above: Non- GFR Calc Thyroid Stimulating Hormone (TSH) 0.79 uIU/mL 0.358-3.74 [facility] Work Phone: Platelets bldon 09-16-2021 Platelets (Bld) [#/Vol] 257 10*3/uL 150-450 [facility] Work Phone: Serum or plasma calcium camryn urement (mass/volume)on 09-16-2021 Calcium [Mass/Vol] 9.5 mg/dL 8.5-10.1 [facility] Work Phone: Serum or plasma creatinine m easurement (mass/volume)on 09-16-2021 Creatinine [Mass/Vol] 1.18 mg/dL 0.70-1.30 [facility] Work Phone: Comment on above: The validity of the calculated GFR & GFRAA in patients over 70 years has not been determined. Clinical correlation is essential. Serum or plasma urea nitroge n measurement (mass/volume)on 09-16-2021 Urea nitrogen [Mass/Vol] 13 mg/dL 7-18 [facility] Work Phone: Thin prep Papanicolaou smear with manual screeningon 09-16-2021 Thin prep Papanicolaou smear with manual screening 4 5-15 [facility] Work Phone: Basophil percentageon 2021 Bilirubin [Mass/Vol] 1.00 mg/dL 0.20-1.00 [facility] Work Phone: Comment on above: For patients on eltr ombopag therapy, use of Dimension [place] TBIL is not recommended. Chloride [Moles/Vol] 106 mmol/L 98-107 [facility] Work Phone: Cholesterol [Mass/Vol] 192 mg/dL <200 [facility] Work Phone: Comment on above: <200 mg/dL Desirable 200-240 mg/dL Borderline >240 mg/dL High Risk Glucose [Mass/Vol] 113 mg/dL 74-106 [facility] Work Phone: Comment on above: Fasting Glucose resu lt from 100 to 125 mg/dL suggests IMPAIRED HOMEOSTASIS per A.D.A. criteria. Potassium [Moles/Vol] 4.3 mmol/L 3.5-5.1 [facility] Work Phone: Protein [Mass/Vol] 7.2 g/dL 6.4-8.2 [facility] Work Phone: Sodium [Moles/Vol] 140 mmol/L 136-145 [facility] Work Phone: Triglyceride [Mass/Vol] 190 mg/dL [facility] Work Phone: Comment on above: The drugs N-Acetylcy steine and Metamizole may falsely depress this assay.Serum Triglycerides Reference Interval Normal <150 mg/dL Borderline high 150 - 199 mg/dL High 200 - 499 mg/dL Very High > or = 500 mg/dL WBC (Bld) [#/Vol] 6.0 10*3/uL 4.4-11.0 [facility] Work Phone: Blood erythrocytes count (nu mber/volume)on 08-06-2021 RBC (Bld) [#/Vol] 5.44 10*6/uL 4.6-6.2 [facility] Work Phone: Blood hemoglobin measurement (mass/volume)on 08-06-2021 Hemoglobin (Bld) [Mass/Vol] 16.2 g/dL 13.0-16.5 [facility] Work Phone: Blood platelet mean volumeon 08-06-2021 Platelet mean volume (Bld) [Entitic vol] 9.3 fL 6.2-12.0 [facility] Work Phone: Determination of erythrocyte mean corpuscular volume (MCV)on 08-06-2021 MCV (RBC) [Entitic vol] 86.0 fL 80-94 [facility] Work Phone: Hematocrit Auto (Bld) [Volum e fraction]on 08-06-2021 Hematocrit (Bld) [Volume fraction] 46.8 % 40-54 [facility] Work Phone: Laboratory - Chemistry and C hemistry - challengeon 08-06-2021 ALP [Catalytic activity/Vol] 83 U/L 45-117 [facility] Work Phone: ALT [Catalytic activity/Vol] 35 U/L 16-61 [facility] Work Phone: CO2 [Moles/Vol] 28.0 mmol/L 21.0-32.0 [facility] Work Phone: Globulin (S) [Mass/Vol] 3.3 g/dL 2.2-4.2 [facility] Work Phone: Urea nitrogen/Creatinine [Mass ratio] 12.5 mg/mg 10-20 [facility] Work Phone: Laboratory - Hematology and Cell countson 08-06-2021 Erythrocyte distribution width (RBC) [Entitic vol] 39.3 fL 35.1-43.9 [facility] Work Phone: Erythrocyte distribution width (RBC) [Ratio] 12.5 % 11.6-14.6 [facility] Work Phone: MCH (RBC) [Entitic mass] 29.8 pg 27.0-32.0 [facility] Work Phone: MCHC Auto (RBC) [Mass/Vol]on 08-06-2021 MCHC (RBC) [Mass/Vol] 34.6 g/dL 32-36 [facility] Work Phone: No Panel Informationon 08-06 Estimated GFR (MDRD) Amer 77 mL/min >60 [facility] Work Phone: Comment on above: GFR Calc Estimated GFR (MDRD) Non-Af Amer 64 mL/min >60 [facility] Work Phone: Comment on above: Non- GFR Calc Prostate Specific Antigen Screen 7.30 ng/mL 0.00-4.00 [facility] Work Phone: Comment on above: This test was perfor med using the TPSA assay method for [employer] chemistry system. Values obtained with differentassay methods cannot be used interchangably.When changing PSA assays in the course of monitoring apatient, additional sequential testing should be carriedout to confirm baseline values. Platelets bldon 08-06-2021 Platelets (Bld) [#/Vol] 227 10*3/uL 150-450 [facility] Work Phone: Serum or plasma albumin camryn urement (mass/volume)on 08-06-2021 Albumin [Mass/Vol] 3.9 g/dL 3.2-5.0 [facility] Work Phone: Serum or plasma albumin/glob ulin mass ratioon 08-06-2021 Albumin/Globulin [Mass ratio] 1.2 {ratio} 0.9-2.4 [facility] Work Phone: Serum or plasma calcium camryn urement (mass/volume)on 08-06-2021 Calcium [Mass/Vol] 9.4 mg/dL 8.5-10.1 [facility] Work Phone: Serum or plasma cholesterol in HDL measurement (mass/volume)on 08-06-2021 Cholesterol in HDL [Mass/Vol] 51 mg/dL [facility] Work Phone: Comment on above: The drugs N-Acetylcy steine and Metamizole may falsely depress this assay. Reference Range HDL <40 mg/dL Low HDL Cholesterol HDL >or= 60 mg/dL High HDL Cholesterol Serum or plasma cholesterol in VLDL measurement (mass/volume)on 08-06-2021 Cholesterol in VLDL [Mass/Vol] 38 mg/dL 5-40 [facility] Work Phone: Serum or plasma creatinine m easurement (mass/volume)on 08-06-2021 Creatinine [Mass/Vol] 1.20 mg/dL 0.70-1.30 [facility] Work Phone: Comment on above: The validity of the calculated GFR & GFRAA in patients over 70 years has not been determined. Clinical correlation is essential. Serum or plasma low density lipoprotein (LDL) cholesterol measurement (mass/volume)on 08-06-2021 Cholesterol in LDL [Mass/Vol] 103 mg/dL 0-130 [facility] Work Phone: Serum or plasma urea nitroge n measurement (mass/volume)on 08-06-2021 Urea nitrogen [Mass/Vol] 15 mg/dL 7-18 [facility] Work Phone: Thin prep Papanicolaou smear with manual screeningon 08-06-2021 Thin prep Papanicolaou smear with manual screening 25 U/L 15-37 [facility] Work Phone: Thin prep Papanicolaou smear with manual screening 6 5-15 [facility] Work Phone: Vital Signs Date Time Vital Sign Value Performing Clinician Corinnei aly 11-14-2024 10:18-0400 Body height 175.[address] Fabricio Tomas MD Work Phone: [facility] 11-14-2024 10:18-0400 Body mass index (BMI) [Ratio] 28.7 kg/m2 Dr. Fabricio Tomas MD Work Phone: [facility] 11-14-2024 10:18-0400 Body temperature 97.2 [degF] Dr. Fabricio Tomas MD Work Phone: [facility] 11-14-2024 10:18-0400 Body weight 88.[address] Fabricio Tomas MD Work Phone: [facility] 11-14-2024 10:18-0400 Diastolic blood pressure 75 mm[Hg] Dr. Fabricio Tomas MD Work Phone: [facility] 11-14-2024 10:18-0400 Heart rate 89 /min Dr. Fabricio Tomas MD Work Phone: [facility] 11-14-2024 10:18-0400 Respiratory rate 18 /min Dr. Fabricio Tomas MD Work Phone: [facility] 11-14-2024 10:18-0400 SaO2% (BldA) [Mass fraction] 98 % Dr. Fabricio Tomas MD Work Phone: [phone] [place] [address] 11-14-2024 10:18-0400 Systolic blood pressure 117 mm[Hg] Dr. Fabricio Tomas MD Work Phone: [phone] [address] 03-30-2023 11:20-0500 Body height 175.[address] Fabricio Tomas Work Phone: [phone] [address] 03-30-2023 11:20-0500 Body mass index (BMI) [Ratio] 29.8 kg/m2 Dr. Fabricio Tomas Work Phone: [phone] [address] 03-30-2023 11:20-0500 Body weight 91.[address] Fabricio Tomas Work Phone: [phone] [address] 03-30-2023 11:20-0500 Diastolic blood pressure 71 mm[Hg] Dr. Fabricio Tomas Work Phone: [phone] [address] 03-30-2023 11:20-0500 Heart rate 67 /min Dr. Fabricio Tomas Work Phone: [phone] [place] [address] 03-30-2023 11:20-0500 Respiratory rate 18 /min Dr. Fabricio Tomas Work Phone: [facility] 03-30-2023 11:20-0500 SaO2% (BldA) [Mass fraction] 94 % Dr. Fabricio Tomas Work Phone: [facility] 03-30-2023 11:20-0500 Systolic blood pressure 141 mm[Hg] Dr. Fabricio Tomas Work Phone: [phone] [address] 12-16-2022 10:51-0400 Body height 175.[address] Fabricio Tomas Work Phone: [facility] 12-16-2022 10:51-0400 Body mass index (BMI) [Ratio] 29.7 kg/m2 Dr. Fabricio Tomas Work Phone: [facility] 12-16-2022 10:51-0400 Body weight 91.[address] Fabricio Tomas Work Phone: [facility] 12-16-2022 10:51-0400 Diastolic blood pressure 71 mm[Hg] Dr. Fabricio Tomas Work Phone: [phone] [place] [address] 12-16-2022 10:51-0400 Heart rate 65 /min Dr. Fabricio Tomas Work Phone: 2(600)946-953413 [address] 12-16-2022 10:51-0400 Respiratory rate 20 /min Dr. Fabricio Tomas Work Phone: 2(734)112-825773 [place] [address] 12-16-2022 10:51-0400 SaO2% (BldA) [Mass fraction] 93 % Dr. Fabricio Tomas Work Phone: [facility] 12-16-2022 10:51-0400 Systolic blood pressure 139 mm[Hg] Dr. Fabricio Tomas Work Phone: 8(707)492-280113 [address] 05-26-2022 11:21-0500 Body height 175.[address] Fabricio Tomas Work Phone: 8(446)424-275873 [place] [address] 05-26-2022 11:21-0500 Body mass index (BMI) [Ratio] 29.3 kg/m2 Dr. Fabricio Tomas Work Phone: [facility] 05-26-2022 11:21-0500 Body weight 90.[address] Fabricio Tomas Work Phone: 7(427)381-626513 [address] 05-26-2022 11:21-0500 Diastolic blood pressure 78 mm[Hg] Dr. Fabricio Tomas Work Phone: 3(596)502-002513 [address] 05-26-2022 11:21-0500 Heart rate 70 /min Dr. Fabricio Tomas Work Phone: 4(882)513-659973 [place] [address] 05-26-2022 11:21-0500 Respiratory rate 18 /min Dr. Fabricio Tomas Work Phone: 4(675)385-385813 [address] 05-26-2022 11:21-0500 SaO2% (BldA) [Mass fraction] 93 % Dr. Fabricio Tomas Work Phone: 7(519)256-635873 [place] [address] 05-26-2022 11:21-0500 Systolic blood pressure 128 mm[Hg] Dr. Fabricio Tomas Work Phone: 9(940)342-256913 [address] 05-14-2022 12:17-0500 Diastolic blood pressure 64 mm[Hg] Dr. Fabricio Tomas Work Phone: 6(138)732-824113 [address] 05-14-2022 12:17-0500 Heart rate 68 /min Dr. Fabricio Tomas Work Phone: 8(423)352-774537 [place] [address] 05-14-2022 12:17-0500 Respiratory rate 16 /min Dr. Fabricio Tomas Work Phone: 5(145)310-207413 [address] 05-14-2022 12:17-0500 SaO2% (BldA) [Mass fraction] 98 % Dr. Fabricio Tomas Work Phone: 3(525)764-352113 [address] 05-14-2022 12:17-0500 Systolic blood pressure 100 mm[Hg] Dr. Fabricio Tomas Work Phone: 1(128)779-863813 [address] 05-14-2022 11:20-0500 Inhaled oxygen flow rate 4 L/min Dr. Fabricio Tomas Work Phone: 6(311)101-437913 [address] 05-14-2022 10:21-0500 Body temperature 96.9 [degF] Dr. Fabricio Tomas Work Phone: 4(033)273-067513 [address] 05-14-2022 09:33-0500 Body height 175.[address] Fabricio Tomas Work Phone: 7(500)717-469513 [address] Work Phone: 05-14-2022 09:33-0500 Body mass index (BMI) [Ratio] 29.3 kg/m2 Dr. Fabricio Tomas Work Phone: 6(299)501-925973 [place] [address] 05-14-2022 09:33-0500 Body weight 90.[address] Fabricio Tomas Work Phone: [facility] 04-09-2022 09:02-0500 Body mass index (BMI) [Ratio] 28.3 kg/m2 Dr. Fabricio Tomas Work Phone: [facility] 04-09-2022 09:02-0500 Body weight 89.[address] Fabricio Tomas Work Phone: [facility] 04-09-2022 09:02-0500 Diastolic blood pressure 79 mm[Hg] Dr. Fabricio Tomas Work Phone: [facility] 04-09-2022 09:02-0500 Heart rate 92 /min Dr. Fabricio Tomas Work Phone: [facility] 04-09-2022 09:02-0500 Respiratory rate 16 /min Dr. Fabricio Tomas Work Phone: [facility] 04-09-2022 09:02-0500 Systolic blood pressure 135 mm[Hg] Dr. Fabricio Tomas Work Phone: [facility] 09-17-2021 15:00-0400 Diastolic blood pressure 74 mm[Hg] Dr. Fabricio Tomas Work Phone: [facility] Work Phone: 09-17-2021 15:00-0400 Heart rate 80 /min Dr. Fabricio Tomas Work Phone: [facility] Work Phone: 09-17-2021 15:00-0400 Respiratory rate 16 /min Dr. Fabricio Tomas Work Phone: [facility] Work Phone: 09-17-2021 15:00-0400 SaO2% (BldA) [Mass fraction] 96 % Dr. Fabricio Tomas Work Phone: [facility] Work Phone: 09-17-2021 15:00-0400 Systolic blood pressure 134 mm[Hg] Dr. Fabricio Tomas Work Phone: [facility] Work Phone: 09-17-2021 11:30-0400 Body temperature 97.8 [degF] Dr. Fabricio Tomas Work Phone: [facility] Work Phone: 09-17-2021 06:00-0400 Body weight 92.[address] Fabricio Tomas Work Phone: [facility] Work Phone: 09-16-2021 14:25-0400 Body height 177.[address] Fabricio Tomas Work Phone: [facility] Work Phone: 09-16-2021 14:25-0400 Body mass index (BMI) [Ratio] 28.8 kg/m2 Dr. Fabricio Tomas Work Phone: [facility] Work Phone: 09-16-2021 13:39-0400 Body temperature 97.6 [degF] [facility] Work Phone: 09-16-2021 13:39-0400 Diastolic blood pressure 104 mm[Hg] [facility] Work Phone: 09-16-2021 13:39-0400 Heart rate 145 /min [facility] Work Phone: 09-16-2021 13:39-0400 Respiratory rate 20 /min [facility] Work Phone: 09-16-2021 13:39-0400 SaO2% (BldA) [Mass fraction] 95 % [facility] Work Phone: 09-16-2021 13:39-0400 Systolic blood pressure 152 mm[Hg] [facility] Work Phone: 09-16-2021 10:38-0400 Body height 177.[address] [facility] Work Phone: 09-16-2021 10:38-0400 Body mass index (BMI) [Ratio] 29 kg/m2 [facility] Work Phone: 09-16-2021 10:38-0400 Body weight 91.[address] [facility] Work Phone: Encounters Encounter Date Encounter Type Care Provider Facility Start: [facility]21[facility]20[facility] Start: 11-14-2024 End: 11-14-[address] Andrea Dixon MD -[facility] Work Phone: Start: 11-14-2024 End: 11-14-[address] Fabricio Tomas MD Work Phone: [facility] Work Phone: Start: 09-07-2024 End: 09-07-[address] Fabricio Tomas MD -[facility] [place] Work Phone: Start: 09-07-2024 End: 09-07-2024 ambulatory Fabricio Tomas Facility:[facility] Start: 03-28-2024 End: 03-28-2024 ambulatory Fabricio Tomas Facility:[facility] Start: 03-27-2024 End: 03-27-2024 ambulatory Fabricio [place] Facility:[facility] Start: 09-21-2023 End: 09-21-2023 ambulatory [facility] Work Phone: Start: 09-21-2023 End: 09-21-2023 Patient encounter procedure [facility] [place] Work Phone: Start: 03-30-2023 End: 03-30-[address] Fabricio Tomas Work Phone: [facility] Work Phone: Start: 03-25-2023 End: 03-25-[address] Fabricio Tomas Work Phone: [facility] Work Phone: Start: 03-25-2023 End: 03-25-[address] Fabricio Tomas Work Phone: [facility] Work Phone: Start: 02-01-2023 End: 02-01-[address] Fabricio Tomas Work Phone: [facility] Work Phone: Start: 02-01-2023 End: 02-01-[address] [facility] Work [facility]: Start: 12-23-2022 End: 12-23-[address] Fabricio Tomas Work Phone: [facility] Work Phone: Start: 12-16-2022 End: 12-16-[address] Fabricio Tomas Work Phone: [facility] Work Phone: Start: 07-02-2022 End: 07-02-[address] Fabricio Tomas Work Phone: [facility] Work Phone: Start: 07-02-2022 End: 07-02-[address] Fabricio Tomas Work Phone: [facility] Start: 05-26-2022 End: 05-26-[address] Fabricio Tomas Work Phone: [facility] Start: 05-14-2022 End: 05-14-2022 Emergency department patient visit Dr. Fabricio Tomas Work Phone: [facility] Start: 04-09-2022 End: 04-09-[address] Fabricio Tomas Work Phone: [facility] Start: 09-17-2021 Non-patient / Non-visit Dr. Fabricio Tomas Work Phone: [facility] Start: 09-17-2021 Non-patient / Non-visit Dr. Fabricio Tomas Work Phone: [facility] Start: 09-16-2021 Non-patient / Non-visit Dr. Fabricio Tomas Work Phone: [facility] Start: 09-16-2021 End: 09-17-2021 Evaluation and management of inpatient [facility] Start: 08-06-2021 End: 08-06-2021 Patient encounter procedure [facility] [place] Procedures Date Procedure Procedure Detail Performing Clinician Start: 09-07-2024 Free prostate specif ic antigen level Dr. Fabricio Tomas MD Work Phone: Comment on above: [employer]. Start: 09-07-2024 Prostate specific an tigen measurement Dr. Fabricio Tomas MD Work Phone: Comment on above: [employer].According to the [employer], Serum PSAshould decrease and remain at undetectable levels afterradical prostatectomy. The AUA defines biochemicalrecurrence as an initial PSA value 0.200 ng/mL or greaterfollowed by a subsequent confirmatory PSA value 0.200 ng/mLor greater. Values obtained with different assay methods orkits cannot be used interchangeably. Results cannot beinterpreted as absolute evidence of the presence or absenceof malignant disease. Start: 09-07-2024 Assay of prostate sp ecific antigen total Dr. Fabricio Tomas MD Work Phone: Comment on above: This test was perfor med using the [employer] tPSA method. Measured values of a patient sample can vary depending on the testing procedure used. PSA values determined on patient samples by different testing procedures cannot be used interchangeably. If there is a change in PSA assays while monitoring therapy, sequential testing should be performed to confirm baseline values. Start: 03-25-2023 MRI of pelvis with contrast Dr. Fabricio Tomas Work Phone: Start: 09-17-2021 Cardiovascular stres s test using pharmacologic stress agent Dr. Fabriico Tomas Work Phone: Start: 09-16-2021 Plain chest X-ray Plan of Treatment Date Care Activity Detail Author Colonoscopy [facility] Patient Education ED Atrial Flutter [facility] Work Phone: Patient referral [facility] Work Phone: Payers Date Payer Category Payer Self-pay [id number] 2020 [employer] ( and others) [id number] 2020 Medicare [id number] Unknown [id number] Unknown [id number] Unknown [id number] Unknown [id number] Unknown [id number] Unknown [id number] Social History Date Type Detail Facility Start: 07-10-2019 End: 03-30-2023 Tobacco smoking status NHIS Unknown if ever smoked [facility] Start: 1950 Sex Assigned At Male [facility] Start: 03-30-2023 Tobacco smoking stat us NHIS Never smoked tobacco (finding) [facility] Functional Status Date Assessment Result Facility 09-17-2021 Functional status Ambulates [facility] Work Phone: Mental Status Date Assessment Result Facility 05-14-2022 Cognitive function Awake;Alert;A ppropriate;Follow s Commands [facility] Work Phone: 09-17-2021 Cognitive function Voice/Name [facility] Work Phone: 09-16-2021 Cognitive function Level Of Cons ciousness Awake;Alert;Appropriate;Follow s Commands;Responds to vocal stimuli [facility] Work Phone: Progress note 11-14-2024 Note Date & Type Note Facility 11-14-2024 Progress note [facility] Progress note 11-14-2024 Note Date & Type Note Facility 11-14-2024 Progress note Note Date/Time November 14, 2024 10:26am [facility] [address] [place] [address] OFFICE VISIT Date of Service: 11/14/24 MR#: [id number] Acct: [id number] Name: CHELY HENDERSON MIHIR Rep #: [id number] : 1950 Provider: Dr. Scott Dixon MD Age/Sex: 74/M Location: [facility] Status: Signed Intake Vital Signs 03/28/24 10:02 11/14/24 10:18 Height 5 ft 9 in 5 ft 9 in Weight: 200 lb 194 lb 6 oz BMI 29.5 28.7 BP 129/72 H 117/75 Blood Pressure Location Lt brachial Rt brachial Position Sitting Sitting Respiration 16 18 Pulse 78 89 Pulse Source NIBP Monitor Temp 97.2 F L Temp Source Temporal Pulse Oximetry (%) 98 Oxygen Delivery Method room air Intake Visit Reasons: POSITIVE COLOGUARD Chief Complaint: positive cologuard Is patient in pain?: No Allergies No Known Allergies Allergy (Verified 11/14/24 10:19) Medications ?Medication ?Instructions ?Recorded ?Confirmed ?Type biotin 2,500 mcg capsule 10,000 mcg PO DAILY 12/03/14 11/14/24 History cyanocobalamin (vitamin B-12) 1,000 mcg sublingual CAROL LY 12/03/14 11/14/24 History 1,000 mcg sublingual tablet multivitamin with folic acid 400 1 tab PO DAILY 11/14/24 History mcg tablet (Thera) ezetimibe 10 mg tablet 10 mg PO DAILY 09/16/2110/23 History lisinopril 20 mg tablet 20 mg PO DAILY 09/16/2110/23 History tamsulosin 0.4 mg capsule 0.4 mg PO QHS 09/16/2111/14 History hydrochlorothiazide 12.5 mg tablet 12.5 mg PO DAILY 11/14/24 History diltiazem HCl 60 mg 30 mg PO ONCE PRN 12/16/22 0 11/14/24 History capsule,extended release 12 hr apixaban 5 mg tablet (Eliquis) See Rx Instructions .Ro [place] 06/20/24 11/14/24 Rx .COMPLEX #180 tabs diltiazem HCl 240 mg See Rx Instructions .Route 0 06/20/24 11/14/24 Rx capsule,extended release 24 hr .COMPLEX #90 caps flecainide 100 mg tablet 100 mg PO Q12H #180 TABLETS 09/14/24 11/14/24 Rx Have you fallen in the past year?: No PFSH Medical History (Updated 11/14/24 @ 10:18 by Khadijah Grullon LPN) Positive colorectal cancer screening using Cologuard test correction current use of antiarrhythmic medical therapy Hyperlipidemia Essential hypertension Atrial flutter with rapid ventricular response BPH (benign prostatic hyperplasia) Surgical History No history of previous surgery Family History Mother Heart disease Myocardial infarction Father Cancer Metastatic cancer, unclear specific primary but family notes bone involvement. Social History household members: spouse Smoking Status: Never smoker alcohol intake: current alcohol intake frequency: a few times a week Alcohol type: wine substance use type: does not use caffeine: Yes Type: tea Number of servings: 1 HPI HPI HPI: Patient is a 74-year-old male here for positive Cologuard. He denies abdominal pain or blood in the stool. His last colonoscopy was 10 years ago and was normal. ROS General General: No weight change, appetite, fatigue, colon cancer, breast cancer or weakness HEENT HEENT: No difficulty swallowing, eye injury, eye surgery, swollen glands or hoarseness Endo Endocrine: No thyroid disease, diabetes mellitus, thyroid cancer, Hair loss, heat intolerance or cold intolerance Skin Skin: No rash or changing moles Musc Musculoskeletal: No back problems, arthritis, rheumatoid arthritis, gout or joint pain Cardio Cardiovascular: Yes atrial fibrillation and high blood pressure; No murmur, pacemaker, heart disease, heart attack, heart stent, palpitations, shortness of breath with exertion or chest pain Psych Psychiatric: No depression, anxiety or hearing voices Resp Respiratory: No shortness of breath, No sleep apnea, No cough, No COPD, No asthma, No emphysema and No wheezing Gastro Gastrointestinal: No abdominal pain, No nausea or vomiting, No diarrhea, No constipation, No blood in stool, No acid reflux, Yes hemorrhoids, No ulcers, No gallbladder problem and No black,tarry stools Joey Hematologic: Yes blood thinners, No blood disorders, No bleeding, No anemia and No blood clots Neuro Neurologic: No numbness, No tingling and No weakness Exam Const General: cooperative Orientation: alert and oriented x3 HENOH Head: normal to inspection Neck Neck: normal visual inspection and full ROM Chest Chest palpation & inspection: normal inspection of the chest Resp Effort & Inspection: normal respiratory effort Auscultation: clear to auscultation bilaterally Cardio Rate: regular rate Rhythm: regular rhythm GI Inspection: non-distended Palpation: soft and nontender Skin General: no rashes or lesions noted Neuro General: patient alert and patient oriented x3 Extrem General: full ROM Psych Appearance: grossly normal Mental Status: mental status grossly normal Assessment and Plan Assessment and Plan (1) Positive colorectal cancer screening using Cologuard test: Status: Acute Plan: I explained endoscopy in detail to the patient. I explained the risks includingbut not limited to stroke or heart attack with anesthesia, perforation of the GItract, bleeding, infection. I explained that any of these could necessitate further emergency surgery. The patient understands and all questions were answered sufficiently. The patient wishes to proceed with procedure. Patient will hold Eliquis for 3 days before the procedure Andrea Dixon MD Pager: [facility] [address] [place] [address], [address] [place] [phone] Office: Orders: Orders Colonoscopy Today R19.5 - Other fecal abnormalities Coding Level of Care Code Off vis,new,level 3 Diagnoses Positive colorectal cancer screening using Cologuard test R19.5 Clinical Quality Measures Falls Risk Screening/Assistive Devices Have you fallen in the past year?: No 11/14/24 1026 <Electronically signed by Andrea meraz MD> Date _ Andrea Dixon MD Cosigner Signature: Date (if applicable) CC: ~ [facility] Work Phone: Evaluation note Note Date & Type Note Facility Evaluation note No assessment information availa [facility] Work Phone: Evaluation note Note Date & Type Note Facility Evaluation note Diagnosis Onset Date Atrial flutter with rapid ve ntricular response [facility]) [facility] Work Phone: Evaluation note Note Date & Type Note Facility Evaluation note Diagnosis Onset Date Hyperlipidemia acute Atrial fibrillation/flutter chronic Essential hypertension [facility] Work Phone: Evaluation note Note Date & Type Note Facility Evaluation note Diagnosis Onset Date Hyperlipidemia acute Atrial fibrillation/flutter chronic Essential hypertension chron ic Hyperlipidemia acute Atrial fibrillation/flutter chronic Essential hypertension [facility] Work Phone: Evaluation note Note Date & Type Note Facility Evaluation note Diagnosis Onset Date Resolution Positive colorectal cancer screening using Cologuard test acute November 14, 2024 10:08am [facility] Work Phone: Reason for referral (narrative) Note Date & Type Note Facility Reason for referral (narrative) No reason for referral information available [facility] Work Phone: Chief Complaint and Reason for Visit Chief Complaint EORDER Chief Complaint EORDER AFIB, RVR Chief Complaint EORDER AFIB, RVR AFIB, RVR AFIB, RVR Reason for Visit Atrial flutter with rapid ventricular response HTN (hypertension) Chief Complaint 6 M FU PALPITATIONS Reason for Visit Hyperlipidemia Atrial fibrillation/flutter Essential hypertension Chief Complaint 6 M FU PALPITATIONS s/p [facility] ED/ cardiovert 05-14 Reason for Visit Hyperlipidemia Atrial fibrillation/flutter Essential hypertension Hyperlipidemia Atrial fibrillation/flutter Essential hypertension Chief Complaint 1 y fu PREV PFM PT EKG PSA Reason for Visit Hyperlipidemia Atrial fibrillation/flutter Essential hypertension Chief Complaint 1 y fu PREV PFM PT EKG PSA Elevated prostate specific antigen [PSA] 3 M FU Reason for Visit Hyperlipidemia Atrial fibrillation/flutter Essential hypertension Hyperlipidemia Atrial fibrillation/flutter Essential hypertension Chief Complaint 2 DRS/ 2ORDERS Chief Complaint Admit Date 2-ORDERING 'Jean September 07, 2024 11: 47am POSITIVE COLOGUARD November 14, 2024 10:0 8am Reason for Visit Admit Date Positive colorectal cancer screening usi ng Cologuard test November 14, 2024 10:08am Advance Directives No Advanced Directives Records Found Advance Directive Response Recorded Date/ Time Advance Directives Yes December 03 8:15am Living Will Yes July 10 10:53pm Power of Sill Worker Yes July 10, 2019 10:53pm Advance Directive Response Recorded Date/ Time Advance Directives Yes December 03 8:15am Living Will No September 16, 2021 10:56am Power of Sill Worker No September 16 10:56am Advance Directive Response Recorded Date/ Time Advance Directives Yes December 03 8:15am Living Will No September 16, 2021 2:26pm Power of Sill Worker No September 16 2:26pm Advance Directive Response Recorded Date/ Time Advance Directives Yes December 03 7:15am Living Will No May 14 9:40am Power of Sill Worker No May 14, 2022 9:40am Advance Directive Response Recorded Date/ Time Advance Directives Yes December 03 8:15am Living Will No May 14 10:40am Power of Sill Worker No May 14, 2022 10:40am Advance Directive Response Recorded Date/ Time Advance Directives Yes December 03 8:15am Family History No Family History Records Found Relationship Condition Age at Onset Recorded Date/T irwin mother Cardiac disease Unknown Myocardial infarction Unknown father Malignant neoplasm Unknown Summary Purpose Additional Source Comments Goals (unrecognized section and content) Goals may be documented in a n alternate sectionGoals may be documented in an alternate sectionGoals may be documented in an alternate sectionGoals may be documented in an alternate sectionGoals may be documented in an alternate sectionGoals may be documented in an alternate sectionGoals may be documented in an alternate sectionGoals may be documented in an alternate sectionGoals may be documented in an alternate section Care Teams (unrecognized sec tion and content) Team Status: Active Member Role Status Dates Dr. Fabricio Tomas MD Family Provider Active Dr. Fabricio Tomas MD Primary Care Provider Active Team Status: Inactive Member Role Status Dates Dr. Fabricio Tomas MD Primary Care Provider, Referring P rovider Active Alfredo Mckenzie SOFTWARE QUALITY MANAGER, SOFTWARE QUALITY MANAGER-C Attending Provider Active Team Status: Inactive Member Role Status Dates Dr. Fabricio Tomas MD Primary Care Provider, Referring P rovider Active Julita Chi PA, PA Attending Provider Active Team Status: Inactive Member Role Status Dates Dr. Fabricio Tomas MD Primary Care Provider Active Dr. Nathen Fleming MD Attending Provider, Emergency Provider Active Team Status: Inactive Member Role Status Dates Dr. Fabricio Tomas MD Primary Care Provide r, Attending Provider, Referring Provider Active Team Status: Inactive Member Role Status Dates Dr. Fabricio Tomas MD Primary Care Provider Active Gladys Raya Attending Provider, Referring Provide r Active Team Status: Inactive Member Role Status Dates Dr. Fabricio Tomas MD Primary Care Provider Active Dr. Dejuan Duncan MD Attending Provider Active Team Status: Inactive Member Role Status Dates Dr. Fabricio Tomas MD Primary Care Provide r, Attending Provider, Referring Provider Active Dr. Dejuan Duncan MD Other Provider Active Team Status: Inactive Member Role Status Dates Dr. Fabricio Tomas MD Primary Care Provider Active Start: September 07, 2024 End: September 07, 2024 Dr. Fabricio Tomas MD Attending Provider Active St art: September 07, 2024 End: September 07, 2024 Dr. Fabricio Tomas MD Referring Provider Active St art: September 07, 2024 End: September 07, 2024 Dr. Dejuan Duncan MD Other Provider Active Start: September 07, 2024 End: September 07, 2024 Team Status: Inactive Member Role Status Dates Dr. Fabricio Tomas MD Primary Care Provider Active Start: November 14, 2024 End: November 14, 2024 Dr. Fabricio Tomas MD Referring Provider Active St art: November 14, 2024 End: November 14, 2024 Dr. Andrea Dixon MD Attending Provider Active Start: November 14, 2024 End: November 14, 2024 (unrecognized sect ion and content) No Status Records Found INFORMATION SOURCE (unrecogn ized section and content) DATE CREATED AUTHOR 11/21/2024 [facility] FOR RECORDS PERTAINING TO PATIENTS WHO ARE OR HAVE BEEN ENROLLED IN A CHEMICAL DEPENDENCY/SUBSTANCEABUSE PROGRAM, SOME INFORMATION MAY BE OMITTED. This clinical summary was aggregated from multiple sources. Caution should be exercised in using it in the provision of clinical care. This summary normalizes information from multiple sources, and as a consequence, information in this document may materially change the coding, format and clinical context of patient data. In addition, data may be omitted in some cases. CLINICAL DECISIONS SHOULD BE BASED ON THE PRIMARY CLINICAL RECORDS. [employer] provides no warranty or guarantee of the accuracy or completeness of information in this document.
[2024-11-21] MEDS: Lactated Ringers 1,000 ML 15 ML IV (06:58)
--- NOTE | 2024-11-21 07:13 | PCM.HP.BLA ---
History and Physical Date of Admission: 11/21/24 Intake Vital Signs 03/28/2410:02 11/14/2509:18 Height 5 ft 9 in 5 ft 9 in Weight: 200 lb 194 lb 6 oz BMI 29.5 28.7 BP 129/72 H 117/75 Blood Pressure Location Lt brachial Rt brachial Position Sitting Sitting Respiration 16 18 Pulse 78 89 Pulse Source NIBP Monitor Temp 97.2 F L Temp Source Temporal Pulse Oximetry (%) 98 Oxygen Delivery Method room air Intake Visit Reasons: POSITIVE COLOGUARD Chief Complaint: positive cologuard Is patient in pain?: No Allergies No Known Allergies Allergy (Verified 11/14/24 10:19) Medications ?Medication ?Instructions ?Recorded ?Confirmed ?Type biotin 2,500 mcg capsule 10,000 mcg PO DAILY 12/03/14 11/14/24 History cyanocobalamin (vitamin B-12) 1,000 mcg sublingual DAILY 12/03/14 11/14/24 History 1,000 mcg sublingual tablet multivitamin with folic acid 400 1 tab PO DAILY 12/03/14 11/14/24 History mcg tablet (Thera) ezetimibe 10 mg tablet 10 mg PO DAILY 09/16/21 11/14/24 History lisinopril 20 mg tablet 20 mg PO DAILY 09/16/21 11/14/24 History tamsulosin 0.4 mg capsule 0.4 mg PO QHS 09/16/21 11/14/24 History hydrochlorothiazide 12.5 mg tablet 12.5 mg PO DAILY 10/08/21 11/14/24 History diltiazem HCl 60 mg 30 mg PO ONCE PRN 12/16/22 11/14/24 History capsule,extended release 12 hr apixaban 5 mg tablet (Eliquis) See Rx Instructions .Route 06/20/24 11/14/24 Rx .COMPLEX #180 tabs diltiazem HCl 240 mg See Rx Instructions .Route 06/20/24 11/14/24 Rx capsule,extended release 24 hr .COMPLEX #90 caps flecainide 100 mg tablet 100 mg PO Q12H #180 TABLETS 09/14/24 11/14/24 Rx Have you fallen in the past year?: No PFSH Medical History (Updated 11/14/24 @ 10:18 by Khadijah Grullon LPN) 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 Social History household members: spouse Smoking Status: Never smoker alcohol intake: current alcohol intake frequency: a few times a week Alcohol type: wine substance use type: does not use caffeine: Yes Type: tea Number of servings: 1 HPI HPI HPI: Patient is a 74-year-old male here for positive Cologuard. He denies abdominal pain or blood in the stool. His last colonoscopy was 10 years ago and was normal. ROS General General: No weight change, appetite, fatigue, colon cancer, breast cancer or weakness HEENT HEENT: No difficulty swallowing, eye injury, eye surgery, swollen glands or hoarseness Endo Endocrine: No thyroid disease, diabetes mellitus, thyroid cancer, Hair loss, heat intolerance or cold intolerance Skin Skin: No rash or changing moles Musc Musculoskeletal: No back problems, arthritis, rheumatoid arthritis, gout or joint pain Cardio Cardiovascular: Yes atrial fibrillation and high blood pressure; No murmur, pacemaker, heart disease, heart attack, heart stent, palpitations, shortness of breath with exertion or chest pain Psych Psychiatric: No depression, anxiety or hearing voices Resp Respiratory: No shortness of breath, No sleep apnea, No cough, No COPD, No asthma, No emphysema and No wheezing Gastro Gastrointestinal: No abdominal pain, No nausea or vomiting, No diarrhea, No constipation, No blood in stool, No acid reflux, Yes hemorrhoids, No ulcers, No gallbladder problem and No black,tarry stools Joey Hematologic: Yes blood thinners, No blood disorders, No bleeding, No anemia and No blood clots Neuro Neurologic: No numbness, No tingling and No weakness Exam Const General: cooperative Orientation: alert and oriented x3 HENMT Head: normal to inspection Neck Neck: normal visual inspection and full ROM Chest Chest palpation & inspection: normal inspection of the chest Resp Effort & Inspection: normal respiratory effort Auscultation: clear to auscultation bilaterally Cardio Rate: regular rate Rhythm: regular rhythm GI Inspection: non-distended Palpation: soft and nontender Skin General: no rashes or lesions noted Neuro General: patient alert and patient oriented x3 Extrem General: full ROM Psych Appearance: grossly normal Mental Status: mental status grossly normal Assessment and Plan Assessment and Plan (1) Positive colorectal cancer screening using Cologuard test: Status: Acute Plan: I explained endoscopy in detail to the patient. I explained the risks including but not limited to stroke or heart attack with anesthesia, perforation of the GI tract, bleeding, infection. I explained that any of these could necessitate further emergency surgery. The patient understands and all questions were answered sufficiently. The patient wishes to proceed with procedure. Patient will hold Eliquis for 3 days before the procedure Andrea Dixon MD Pager: [facility] [address] [place] [address], [address] [place] [address] Office: I have examined the patient and the H&P has been reviewed. There are no clinical changes since date of exam.
--- NOTE | 2024-11-21 07:35 | PRE.ANES_ITS ---
ASA Classification* ASA Classification ASA Classification: 3 Assessment & Plan Anesthesia* Anesthesia Assessment Anesthesia Assessment: Discussed sedation and/or anesthesia options, risks, benefits, and alternatives with patient/parents/legal guardian/POA. Questions invited. The patient/parents/legal guardian/POA seems to understand and agrees to proceed with anesthesia plan. Reviewed the physical assessment, medical history, allergy history and patient home medications list prior to surgery/procedure/anesthetic and documented any changes. Performed airway and anesthesia risk assessments. Anesthesia Type Anesthesia Type: MAC History Source History Obtained from:: Patient and Chart Anesthesia Focused Assessment* Temperature: 97.6 F Pulse Rate: 92 Blood Pressure: 140/80 Respiratory Rate: 18 Pulse Ox: 95 Oxygen Delivery Method: Room Air Airway Assessment Mouth opens: >3 cm Mallampati Score: I Teeth Condition: Intact Neck Range of motion (ROM): Full ROM Labs Anesthesia Preop lab: CBC WBC 6.9 K/mm3 (4.4-11.0) 09/07/24 12:04 09/07/24 RBC 5.37 M/mm3 (4.6-6.2) 09/07/24 12:04 09/07/24 Hgb 16.0 g/dL (13.0-16.5) 09/07/24 12:04 09/07/24 Hct 45.8 % (40-54) 09/07/24 12:04 09/07/24 Plt Count 195 K/mm3 (150-450) 09/07/24 12:04 09/07/24 CHEMISTRY Potassium 4.4 mmol/L (3.3-5.1) 09/07/24 12:04 09/07/24 Sodium 139 mmol/L (133-145) 09/07/24 12:04 09/07/24 Magnesium 2.3 mg/dL (1.6-2.6) 09/16/21 13:35 09/16/21 BUN 14 mg/dL (4-19) 09/07/24 12:04 09/07/24 Creatinine 1.10 mg/dL (0.70-1.20) 09/07/24 12:04 09/07/24 Glucose 107 mg/dL (70-99) H 09/07/24 12:04 09/07/24 TSH 1.33 uIU/mL (0.358-3.74) 09/17/21 05:51 COAG Pre-Assessment Diagnosis/Proposed Procedure Planned Operative Procedure(s): CSCOPE Anesthesia History Anesthesia History - associate medical director: Anesthesia History - associate medical director Hx Hospitalization No 11/16/24 11:07 Any Problems With Anesthesia [ No 05/14/22 11:19 1 (Initial Baseline)] Any Problems With Anesthesia No 11/16/24 11:07 Cholinesterase deficiency No 11/16/24 11:07 You/Your Family Experience No 11/16/24 11:07 fever (hyperthermia) with Relationship Recent Exposure to Contagious No 11/21/24 06:49 Disease Does patient have nerve No 11/16/24 11:07 stimulator Patient instructed to have device shut off --Does patient have Pacemaker No 11/21/24 06:49 or ICD? When Was Last Pacemaker Check QUESTION #4 FULL TEXT: You/Your Family Experience fever (hyperthermia) with Anesthesia Last Oral Intake Last Oral intake: Last Oral Intake NPO since 21:00 11/21/24 06:49 Meds taken in AM with sips of No 11/21/24 06:49 water? Meds patient instructed to take am of surgery PONV PONV - associate medical director: PONV - associate medical director Female No 11/16/24 11:07 HX of Motion Sickness No 11/16/24 11:07 HX of N/V After Surgery No 11/16/24 11:07 Non-Smoker Yes 11/16/24 11:07 Duration of Surgery greater No 11/16/24 11:07 than 60 minutes Number of Risk Factors 1 11/16/24 11:07 PONV Score Low Risk 11/16/24 11:07 Height & Weight Height & Weight: Anesthesia: Height & Weight Height 5 ft 9 in 11/21/24 06:49 Weight: 84 kg 11/21/24 06:49 Body Mass Index (BMI) 27.3 11/21/24 06:49 Respiratory Assessment Respiratory Assessment - associate medical director: Respiratory Tract Infection Hx - associate medical director Hx Respiratory Tract Infection No 11/16/24 11:07 STOP Sleep Apnea STOP Sleep Apnea - associate medical director: STOP Sleep Apnea - associate medical director Hx Hypertension Yes: CONTROLLED WITH MED 11/16/24 11:07 Hx Sleep Apnea No 11/16/24 11:07 CPAP BIPAP Do you snore loudly (louder No 11/16/24 11:07 than talking or can be heard Do you often feel tired/ No 11/16/24 11:07 fatigued/ sleepy during daytime? Has anyone observed you stop No 11/16/24 11:07 breathing during sleep? STOP Results Negative 11/16/24 11:07 QUESTION #5 FULL TEXT : Do you snore loudly (louder than talking or can be heard through closed doors)? Tobacco Use History Tobacco Use History - associate medical director: Tobacco Use History - associate medical director Tobacco Use Smoking Status Never smoker 11/16/24 11:07 Hx Tobacco Use No 11/16/24 11:07 Years Smoking Packs Smoked per Day Smoking Cessation Date was within the last 15 years Hx Smoking Cessation Date Hx Smoking Cessation Counseling Hematologic Medial History Hematologic Hx - associate medical director: Hematologic Medical Hx - manager medicare Hx of Blood Transfusion No 11/16/24 11:07 Hx of Transfusion in last 3 No 11/16/24 11:07 Months Date of Last Transfusion (if within last 3 months) Ever experience any problems No 11/16/24 11:07 with transfusion(s)? Specify any problems Hx of Preganancy in last 3 N/A 11/16/24 11:07 Months Nurse Filling Out Transfusion NBUCHER 11/16/24 11:07 & Questions: Date: 11/16/24 11/16/24 11:07 Time: 11:07 11/16/24 11:07 Patient unable to answer at this time (ie. confused, unrespo /Reproduction History /Reproductive History - associate medical director: /Reproductive Hx- associate medical director Hx Now No 11/16/24 11:07 Gestational Age (in weeks): EDC: Hx Hx Para Hx Section SAB No 11/16/24 11:07 Active Medications Active Medications: Current Medications Generic Name Dose Route Start Last Admin Trade Name Freq PRN Reason Stop Dose Admin Lactated Ringer's 1,000 mls @ 15 mls/hr 11/21/24 06:30 11/21/24 06:58 IV 15 mls/hr .Q48H DAMIAN Administration PFSH Medical History (Updated 11/16/24 @ 11:11 by Mary Small) Wears glasses Prostate disease High cholesterol Non-smoker History of atrial fibrillation History of echocardiogram History of stress test Hypertension Cardiology follow-up encounter Positive colorectal cancer screening using Cologuard test skilled nursing current use of antiarrhythmic medical therapy Hyperlipidemia Essential hypertension Atrial flutter with rapid ventricular response BPH (benign prostatic hyperplasia) Home Medications ?Medication ?Instructions ?Recorded ?Last Taken ?Type biotin 2,500 mcg capsule 10,000 mcg PO DAILY 12/03/14 11/20/24 History cyanocobalamin (vitamin B-12) 1,000 mcg sublingual CAROL LY 12/03/14 11/20/24 History 1,000 mcg sublingual tablet multivitamin with folic acid 400 1 tab PO DAILY 11/20/24 History mcg tablet (Thera) ezetimibe 10 mg tablet 10 mg PO DAILY 09/16/2110/24 History lisinopril 20 mg tablet 20 mg PO DAILY 09/16/2110/24 History tamsulosin 0.4 mg capsule 0.4 mg PO QHS 09/16/2111/19 History hydrochlorothiazide 12.5 mg tablet 12.5 mg PO DAILY 11/20/24 History apixaban 5 mg tablet (Eliquis) See Rx Instructions .[place] 06/20/24 11/17/24 Rx .COMPLEX #180 tabs diltiazem HCl 240 mg See Rx Instructions .Route 0 06/20/24 11/20/24 Rx capsule,extended release 24 hr .COMPLEX #90 caps flecainide 100 mg tablet 100 mg PO Q12H #180 TABLETS 09/14/24 11/20/24 Rx Allergy/AdvReac Type Severity Reaction Status Date / Time No Known Allergies Allergy Verified 11/21/24 06:47 Family History Mother Heart disease Myocardial infarction Father Cancer Metastatic cancer, unclear specific primary but family notes bone involvement. Surgical History (Updated 11/16/24 @ 11:11 by Mary Small) History of colonoscopy No history of previous surgery Social History household members: spouse Smoking Status: Never smoker alcohol intake: current alcohol intake frequency: a few times a week Alcohol type: wine substance use type: does not use caffeine: Yes Type: tea Number of servings: 1 Review of Systems (Anesthesia) ROS Narrative System reviewed and no additional complaints, except as documented. Physical Exam Const alert and oriented x3 HEENT dentition normal Neck full ROM Resp normal respiratory effort and normal air movement Cardio regular rate Back/Spine normal ROM Extremity full ROM Neuro oriented x3 and moves all extremities
--- NOTE | 2024-11-21 08:05 | OP.CCLET_ITS ---
11/21/2024 Fabricio Tomas [address] [place] [address] Re : Colonoscopy procedure for Kulwant Horta Dear Dr. Tomas This procedure was performed on Thursday, November 21, 2024. My impressions and recommendations are as follows: Impressions : - The entire examined colon is normal on direct and retroflexion views. - No specimens collected. Recommendations : - Discharge patient to home. - Resume previous diet. - Resume Eliquis (apixaban) at prior dose tomorrow. - Repeat colonoscopy is not recommended due to current age (66 years or older) for screening purposes. My findings are described in the full procedure note, which is enclosed. If I can be of further assistance, please feel free to contact me at Doctor phone number(s): , Work: . Sincerely, Andrea Dixon MD 11/21/2024 8:05:07 AM This report has been signed electronically.
--- NOTE | 2024-11-21 08:05 | OP.COLON_ITS ---
Patient Name: Kulwant Horta Procedure Date: 11/21/2024 7:40 AM Date of : 1950 Age: 74 Procedure: Colonoscopy Indications: Positive Cologuard test Providers: Andrea Dixon MD Referring MD: Fabricio Tomas Medicines: Propofol per Anesthesia Patient Profile: This is a 74 year old male. Refer to note in patient chart for documentation of history and physical. Last Colonoscopy: more than 10 years ago. Complications: No immediate complications. Procedure: Pre-Anesthesia Assessment: - Prior to the procedure, a History and Physical was performed, and patient medications and allergies were reviewed. The patient's tolerance of previous anesthesia was also reviewed. The risks and benefits of the procedure and the sedation options and risks were discussed with the patient. All questions were answered, and informed consent was obtained. Prior Anticoagulants: The patient has taken no anticoagulant or antiplatelet agents. After reviewing the risks and benefits, the patient was deemed in satisfactory condition to undergo the procedure. After I obtained informed consent, the scope was passed under direct vision. Throughout the procedure, the patient's blood pressure, pulse, and oxygen saturations were monitored continuously. The Colonoscope was introduced through the anus and advanced to the cecum, identified by appendiceal orifice and ileocecal valve. The colonoscopy was performed without difficulty. The patient tolerated the procedure well. The quality of the bowel preparation was good. Anatomical landmarks were photographed. Scope In: 7:49:59 AM Scope Withdrawal Time 0 hours 6 minutes 37 seconds Scope Out: 7:59:33 AM Total Procedure Duration Time 0 hours 9 minutes 34 seconds Findings: The entire examined colon appeared normal on direct and retroflexion views. Impression: - The entire examined colon is normal on direct and retroflexion views. - No specimens collected. Recommendation: - Discharge patient to home. - Resume previous diet. - Resume Eliquis (apixaban) at prior dose tomorrow. - Repeat colonoscopy is not recommended due to current age (66 years or older) for screening purposes. Procedure Code(s): --- Professional --- 52024, Colonoscopy, flexible; diagnostic, including collection of specimen(s) by brushing or washing, when performed (separate procedure) Diagnosis Code(s): --- Professional --- R19.5, Other fecal abnormalities CPT copyright 2021 [employer]. All rights reserved. The codes documented in this report are preliminary and upon trauma program manager review may be revised to meet current compliance requirements. Andrea Dixon MD 11/21/2024 8:05:07 AM This report has been signed electronically. Number of Addenda: 0 Note Initiated On: 11/21/2024 7:40 AM
--- NOTE | 2024-11-21 08:09 | PCM.POST.ANE ---
Anesthesia: Postop Eval I Current Vital Signs Temperature: 97 F Pulse Rate: 64 Blood Pressure: 106/60 Respiratory Rate: 16 Pulse Ox: 95 Oxygen Delivery Method: Room Air Assessment Airway patent: Yes Spontaneous unlabored respirations: Yes Mental status: Asleep nausea: No Vomiting: No Anesthesia Complication: No Fluid Hydration Crystalloid volume administer (ml): 400 Total IV fluid infused: 400 Progress Note Anesthesia document: Postop Eval 1 completed: Yes
--- NOTE | 2024-11-21 08:20 | PCM.POSTANE2 ---
Anesthesia Postop Eval I Sum Postop Eval Completion status Anesthesia document: Postop Eval 1 completed: Yes Anesthesia Postop Eval I Summary Anesthesia Postop Eval I Summary: Anesthesia Postop Eval I: Assessment Summary Airway patent Yes 11/21/24 08:10 [email or web address] Spontaneous unlabored Yes 11/21/24 08:10 [email or web address] respirations Mental status Asleep 11/21/24 08:10 [email or web address] nausea No 11/21/24 08:10 [email or web address] Vomiting No 11/21/24 08:10 [email or web address] Anesthesia Postop Eval I: Fluid Summary Crystalloid volume administer 400 11/21/24 08:10 [email or web address] (ml) Colloids volume administered ( ml) Blood Product volume administered (ml) Total IV fluid infused 400 11/21/24 08:10 [email or web address] Anesthesia Postop Eval I: Summary Notes Anesthesia Complication No 11/21/24 08:10 [email or web address] Anesthesia Complication Comment: Post-operative progress note Anesthesia: Postop Eval II Evaluation Mental status: Awake and Calm Pain Level: 2 nausea: No Vomiting: No Complications Anesthesia Complication: No
== END 2024-11-21 08:42 | disposition home or self-care (01) ==
LOC: EN 06:21 → AC 06:22
PROVIDERS: PCP Family Medicine; Referring Provider Family Medicine; Visit Provider Surgery
PROC: 0DJD8ZZ Inspection of Lower Intestinal Tract, Via Natural or Artificial Opening Endoscopic (ICD-10-PCS; CPT 45378; principal; 2024-11-21 07:25)
DX: R19.5 Other fecal abnormalities (principal); I48.92 Unspecified atrial flutter; I10 Essential (primary) hypertension; N40.0 Benign prostatic hyperplasia without lower urinary tract symptoms; E78.00 Pure hypercholesterolemia, unspecified; Z79.01 Long term (current) use of anticoagulants; Z79.899 Other long term (current) drug therapy
CPT/HCPCS: 45378; J2405

== ENCOUNTER → 2025-03-27 | Outpatient (CLI) | payer MEDICARE, OTHER, SELFPAY ==
[2025-03-27 15:22] LABS: Creatinine, Urine (random) 117.00 mg/dL (39.00-259.00); Microalbumin,Random Urine 69.7 mg/L (<20 mg/L)
[2025-03-27 15:43] LABS: AST(SGOT) 30 U/L (<=37); Alanine Aminotransfer ALT/SGPT 27 U/L (<=46); Albumin, Serum 4.4 g/dL (3.4-4.8); Alkaline Phosphatase 96 U/L (40-129); Anion Gap 12 (5-15); BUN 13 mg/dL (4-19); BUN/Creat Ratio 12.9 RATIO (10-20); Calcium,Total 9.8 mg/dL (7.6-11.0); Carbon Dioxide 24.0 mmol/L (21.0-32.0); Chloride 103 mmol/L (98-108); Globulin 2.9 g/dL (2.2-4.2); Glucose 102 mg/dL (70-99); PSA,Total - Annual Screen 10.30 ng/mL (0.02-4.00); Potassium 4.2 mmol/L (3.3-5.1)
== END | disposition home or self-care (01) ==
LOC: MFPLAB 11:07
PROVIDERS: PCP Family Medicine; Visit Provider Family Medicine
DX: I10 Essential (primary) hypertension (principal); R97.20 Elevated prostate specific antigen [PSA]; R73.03 Prediabetes
CPT/HCPCS: 36415; 80053; 82043; 82570; 83036; 84153; G0103